=== PATIENT | female | born 1970 | race African-American/Black ===

== ENCOUNTER 2019-06-03 20:22 | Emergency (ER) | payer OTHER, SELFPAY ==
[2019-06-03 20:25] VITALS: BP 162/106; PULSE 71; RESP 16; TEMP 36.1; O2SAT 100
--- NOTE | 2019-06-03 20:50 | ED.GENADULT ---
HPI - General Adult General Chief complaint: Wound/Laceration <Allen Raya PA-C - Last Filed: 06/03/19 21:45> Stated complaint: finger lac <Allen Raya PA-C - Last Filed: 06/03/19 21:45> Time Seen by Provider: 06/03/19 20:33 <Allen Raya PA-C - Last Filed: 06/03/19 21:45> Source: patient <Allen Raya PA-C - Last Filed: 06/03/19 21:45> Mode of arrival: ambulatory <Allen Raya PA-C - Last Filed: 06/03/19 21:45> Limitations: no limitations <Allen Raya PA-C - Last Filed: 06/03/19 21:45> History of Present Illness HPI narrative: Patient is a 48-year-old female who presents with laceration of the right thumb that occurred just prior to arrival using a straight edge to cut something patient notes aching pain worse with touch and activity patient denies any loss of feeling numbness or tingling. Patient notes her tetanus is not up-to-date <Allen Raya PA-C - Last Filed: 06/03/19 21:45> Related Data Home medications: Home Medications Medication Instructions Recorded Confirmed lisinopril 06/03/19 naproxen 06/03/19 <Allen Raya PA-C - Last Filed: 06/03/19 21:45> Allergies/adverse reactions: Allergies Allergy/AdvReac Type Severity Reaction Status Date / Time No Known Allergies Allergy Unverified 10/17/16 13:54 <Allen Raya PA-C - Last Filed: 06/03/19 21:45> Review of Systems Review of Systems: Narrative: SKIN: Positive for laceration MUSCULOSKELETAL: Positive for thumb pain NEUROLOGIC: Denies numbness, or weakness. <Allen Raya PA-C - Last Filed: 06/03/19 21:45> PMFSH Social History Social History: Social History Gender identity (if verbalized by the patient): Female <Allen Raya PA-C - Last Filed: 06/03/19 21:45> Exam Narrative: Exam Narrative: GENERAL: Well-appearing, well-nourished, and in no acute distress. HEAD: Normocephalic, atraumatic. EYES: PERRLA and EOMI. ENT: Nares clear, no rhinorrhea or epistaxis. Mucous membranes moist. EXTREMITIES: Normal range of motion. No edema. SKIN: Warm, dry, no rash. 1 cm linear superficial laceration the distal phalanx of the right thumb NEURO: No focal deficits. Alert and oriented x3. Neurovascularly intact PSYCH: Normal mood and affect. <ESTEFANIA Borja Last Filed: 06/03/19 21:45> Course Course Emergency Course: Patient in the room in no distress aware of case findings treatment plan and diagnosis felt appropriate for outpatient reevaluation <ESTEFANIA Borja Last Filed: 06/03/19 21:45> Vital Signs Vital signs: Vital Signs Temperature 36.1 C L 06/03/19 20:25 Pulse Rate 71 06/03/19 20:25 Respiratory Rate 16 06/03/19 20:25 Blood Pressure 162/106 H 06/03/19 20:25 Pulse Oximetry 100 06/03/19 20:25 Temperature 36.1 C L 06/03/19 20:25 Pulse Rate 71 06/03/19 20:25 Respiratory Rate 16 06/03/19 20:25 Blood Pressure 162/106 H 06/03/19 20:25 Pulse Oximetry 100 06/03/19 20:25 <ESTEFANIA Borja Last Filed: 06/03/19 21:45> Vital Signs Temperature 36.1 C L 06/03/19 20:25 Pulse Rate 71 06/03/19 20:25 Respiratory Rate 16 06/03/19 20:25 Blood Pressure 162/106 H 06/03/19 20:25 Pulse Oximetry 100 06/03/19 20:25 Temperature 36.1 C L 06/03/19 20:25 Pulse Rate 71 06/03/19 20:25 Respiratory Rate 16 06/03/19 20:25 Blood Pressure 162/106 H 06/03/19 20:25 Pulse Oximetry 100 06/03/19 20:25 <Chantell Abbott MD - Last Filed: 06/03/19 23:16> Procedures Laceration Laceration 1: Date: 06/03/19 <ESTEFANIA Borja Last Filed: 06/03/19 21:45> Time: 20:54 <ESTEFANIA Borja Last Filed: 06/03/19 21:45> Site: upper extremity <ESTEFANIA Borja Filed: 06/03/19 21:45> Side (If applicable): right <Allen Bhat
[2019-06-03] MEDS: TETANUS,DIPHTHERIA,AC PERTUSSIS ADULT 0.5 ML (ADACEL) IM (22:33)
== END 2019-06-03 22:35 | disposition home or self-care (01) ==
PROVIDERS: Emergency Provider Emergency Medicine; PCP Physician Assistant
DX: S61.011A Laceration without foreign body of right thumb without damage to nail, initial encounter (principal); W26.8XXA Contact with other sharp object(s), not elsewhere classified, initial encounter; Z23 Encounter for immunization
CPT/HCPCS: 12001; 90471; 90715; 99282

== ENCOUNTER 2019-11-05 10:00 | Outpatient (RCR) | payer OTHER, SELFPAY ==
--- NOTE | 2019-08-09 15:10 | PTOPEVAL ---
PHYSICAL THERAPY EVALUATION AND PLAN OF CARE Thank you for referring Verito Sanchez to [facility]. I recommend Verito participate in physical therapy 2x/week for 4 weeks with supplemental HEP. Please review, sign, date and return this plan of care MERT. I agree with and certify that the following plan of care is medically necessary. Referring Physician Date Evaluation Evaluation Information Problem Diagnosis left ACL tear Onset September 2018 Cause fall Subjective Information Verito is here today almost a Query Text:As Reported By Patient/ year s/p left ACL tear. States Family she did therapy for some time after the surgery, but it ended in 12/2018. She often feels as though the knee wants to give out, some stabbing pain in the side of the kne, and there is some swelling in the knee. Left Knee(s) Reported Pain Level 7 Pain Frequency Chronic,Continuous Lowest Pain Intensity 5 Pain Aggravating Factors Stair Climbing,Weight Bearing/ Standing Pain Behaviors Anxious,Guarding Pain Relief Interventions Used By Ice Patient Pain Score Pain Score 7: Self Report Additional Pain Score Comments takes tylenol PM Lower Extremity Range of Motion Knee Range of Motion Left Knee Flexion Range of Motion - Active 119 Knee Extension Range of Motion - Active 0 Query Text: Lower Extremity Muscle Strength Testing Hip Strength Left Hip Flexion Strength 4 Good Hip Extension Strength 3- Fair - Hip Abduction Strength 3 Fair Knee Strength Left Knee Flexion Strength 4 Good Knee Extension Strength 4 Good Posture Posture Standing Position Head/C-Spine Posture Neutral Position Thoracic Spine Posture Neutral Lumbar Spine Posture Increased Lordosis Pelvis Posture Anteriorly Tilted Weight Distribution Weight Shifted Right Hip Posture (L) Neutral,(R) Neutral Knee Posture (R) Neutral,(L) Genu Recurvatum Special Tests-Lower Extremity Knee Special Tests Anny's Positive Left Anterior Drawer Negative Left Pivot-Shift Positive Left Too's Positive Left Edema Assessment Location Left Knee(s) Type Non-Pitting Edema Degree 1+ (2 mm or less) Gait Pattern Antalgic Gait,Trendele
--- NOTE | 2019-09-06 10:51 | PTOPEVAL ---
PHYSICAL THERAPY PLAN OF CARE UPDATE AND PROGRESS REPORT Thank you for referring Verito Sanchez to [facility]. I recommend Verito continue physical therapy 2x/week for 4 weeks. Please review, sign, date and return this plan of care MERT. I agree with and certify that the following plan of care is medically necessary. Referring Physician Date Progress Diagnosis left ACL tear Onset September 2018 Cause fall Subjective Information Verito reports minimal pain Query Text:As Reported By Patient/ with occasional increased pain Family in the left knee. States she sees the physician next Friday (09/13/19) to determine next steps and if surgery is an option to be scheduled. Overall feels as though it is stronger. She wears a knee brace when in the community. Self Report Pain Assessment Left Knee(s) Reported Pain Level 1 Knee Range of Motion Left Knee Flexion Range of Motion - Active 120 Knee Extension Range of Motion - Active 0 Query Text: Hip Strength Left Hip Flexion Strength 4+ Good + Hip Extension Strength 3+ Fair + Hip Abduction Strength 3+ Fair + Knee Strength Left Knee Flexion Strength 4+ Good + Knee Extension Strength 4+ Good + Knee Strength Comments SLS x10 seconds each side, increased sway on left side Palpation continues to have mild edema pocket at medial joint line Edema Assessment Left Knee Type Non-Pitting Edema Degree 1+ (2 mm or less) Balance Assessment 5 Time Sit to Stand Time in Seconds 9 Gait Pattern Antalgic Gait Gait Pattern Observed Hyperextended Knee - Left Other Gait Observations states she can feel the knee hyperextending and is conscious of correcting it Stair Climbing Assessment Stair Climbing Assistive Devices None Number of Steps Climbed (Steps) 4 Number of Repetitions (Repetitions) 3 Technique Alternating Steps Stair Climbing Direction Both Up and Down Stair Climbing Ability Independent Stair Climbing Comments jumps off right foot to rise on left; poor eccentric control of left LE to lower down PT Clinical Summary Verito has participated in physical therapy for 4 weeks
--- NOTE | 2019-09-28 10:09 | PCPTNOTE ---
Patient called & cancelled scheduled appointment this date due to not being able to make it.
--- NOTE | 2019-10-05 09:21 | PCPTNOTE ---
Patient called & cancelled scheduled appointment this date due to [ car trouble per [employer]]
--- NOTE | 2019-10-07 11:53 | PTOPEVAL ---
PHYSICAL THERAPY PLAN OF CARE UPDATE AND PROGRESS REPORT Thank you for referring Verito Sanchez to [facility]. Verito is scheduled to be seen 1x/week for 4 weeks which will be followed up with re-assessment to determine further skilled PT needs. Please review, sign, date and return this plan of care MERT. I agree with and certify that the following plan of care is medically necessary. Referring Physician Date Progress Evaluation Information Problem Diagnosis left ACL tear Onset September 2018 Cause fall Subjective Information Veirto reports she has been Query Text:As Reported By Patient/ doing well. Needs to follow up Family to with her physician to have an MRI and then discuss possible surgery. Minimal pain in left knee at this time. States that right knee and back have been hurting lately. She states she is more concerned about her meniscus than her ACL but is willing to do surgery either way. Pain Assessment Timing of Pain Assessment Timing of Pain Assessment Assessment Self Report Self Report Pain Level 0 Lower Extremity Range of Motion Knee Range of Motion Left Knee Flexion Range of Motion - Active 132 Knee Extension Range of Motion - Active 0 Query Text: Hip Strength Left Hip Flexion Strength 5 Normal Hip Extension Strength 3+ Fair + Hip Abduction Strength 3+ Fair + Knee Strength Left Knee Flexion Strength 5 Normal Knee Extension Strength 4+ Good + Knee Strength Comments SLS x10 seconds each side, increased sway on left side Stair Climbing Assessment Stair Climbing Assistive Devices None Weight Bearing Status - Left As Tolerated Weight Bearing Status - Right Full Maintains Weight Bearing Status Yes Number of Steps Climbed (Steps) 4 Number of Repetitions (Repetitions) 3 Technique Alternating Steps Stair Climbing Direction Both Up and Down Stair Climbing Ability Independent Stair Climbing Comments continues to have fair eccentric control on left PT Clinical Summary Verito continues to demonstrate mild left LE strength deficits. She would benefit from further skilled PT to progres HEP and prepare for surgery. PT Services Indicated Yes Rehabilitation Potential Good Patient/Caregiver's Per
--- NOTE | 2019-11-05 10:49 | PTOPEVAL ---
PHYSICAL THERAPY DISCHARGE NOTE Thank you for referring Verito Sanchez to [facility].? Please review, sign, date and return this plan of care MERT. I agree with and certify that the following plan of care is medically necessary. Referring Physician Date Discharge Problem Diagnosis left ACL tear Onset September 2018 Cause fall Subjective Information Verito nothing new to report. Query Text:As Reported By Patient/ Had an MRI 2 weeks ago but Family does not know results yet. Pain Assessment Timing of Pain Assessment Timing of Pain Assessment Pre-Treatment Self Report Self Report Pain Level 0 Pain Score Pain Score 0: Self Report Lower Extremity Muscle Strength Testing Hip Strength Left Hip Flexion Strength 5 Normal Hip Extension Strength 4 Good Hip Abduction Strength 4 Good Knee Strength Left Knee Flexion Strength 5 Normal Knee Extension Strength 4+ Good + Knee Strength Comments SLS x15 seconds each side; unilateral leg press 80#x15 reps; only reason not testing 5/5 is due to poor eccentric control during SLS squat PT Clinical Summary Verito demonstrates a plateau in functional change at this time. Her strength is WFL except for eccentric control of right quadriceps. She does have significant crepitus that she feels interrupts her control of left knee. I recommend d/c from PT at this time. Follow up with physician regarding MRI. PT Services Indicated Yes Patient/Caregiver's Personal Goals for decrease pain, increase Rehabilitation strength Potential Barriers to Goal Achievements None Other Potential Barriers to Goal fear of using LLE Achievement Support Requirements For Optimal None [place] Patient/Caregiver Informed of Benefits/ Yes Risks of Rehabilitation Patient/Caregiver Participated in Plan Yes of Care Patient/Caregiver Agreed with Problem Yes List/POC/Goals
== END 2019-11-07 23:59 | disposition home or self-care (01) ==
LOC: ANHPT 10:00
PROVIDERS: PCP Physician Assistant
DX: M25.562 Pain in left knee (principal); S83.512D Sprain of anterior cruciate ligament of left knee, subsequent encounter; S83.242D Other tear of medial meniscus, current injury, left knee, subsequent encounter
CPT/HCPCS: 97110; 97161

== ENCOUNTER 2021-04-04 00:54 | Emergency (ER) | payer OTHER, SELFPAY ==
[2021-04-04 01:04] VITALS: BP 152/96; PULSE 104; RESP 18; TEMP 36.7; O2SAT 100
--- NOTE | 2021-04-04 01:40 | ED.GENADULT ---
HPI - General Adult General Chief complaint: Ear Stated complaint: right ear pain Time Seen by Provider: 04/04/21 01:28 History of Present Illness HPI narrative: Patient is a 50-year-old female who presents the emergency department with chief complaint of right ear pain. The patient reports she was seen earlier today diagnosed with a sinus infection and started on Augmentin the patient reports that this evening she started having pain in her neck and in her right ear. The patient states that the pain is throbbing unable to get comfortable in any position. The patient states she feels like her eardrum is about to explode Related Data Home Medications Medication Instructions Recorded Confirmed lisinopril 06/03/19 naproxen 06/03/19 Allergies Allergy/AdvReac Type Severity Reaction Status Date / Time No Known Allergies Allergy Verified 04/04/21 01:23 Review of Systems Review of Systems: A 10 system review of systems was completed on the patient and is negative except for what is stated in the HPI. Nursing and ancillary documentation was reviewed. PMFSH Social History Social History Gender identity (if verbalized by the patient): Female Exam Narrative: GENERAL: Well-appearing, well-nourished, and in no acute distress. HEAD: Normocephalic, atraumatic. EYES: PERRLA and EOMI. ENT: Nares clear, no rhinorrhea or epistaxis. Mucous membranes moist. Right tympanic membrane is bulging with purulent material behind the eardrum NECK: Supple. There is anterior cervical lymphadenopathy CHEST: Clear to auscultation. No respiratory distress. HEART: Regular rate and rhythm. No murmur heard. Normal peripheral pulses. ABDOMEN: Soft, nontender, nondistended, normal active bowel sounds. EXTREMITIES: Normal range of motion. No edema. SKIN: Warm, dry, no rash. NEURO: No focal deficits. Alert and oriented x3. PSYCH: Normal mood and affect. Course Course Emergency Course: The patient is currently on Augmentin that started today. At this time we do not need to change the antibiotics. The patient will be given pain control and instructed to continue her antibiotic Vital Signs Vital signs: Vital Signs Temperature 36.7 C 04/04/21 01:04 Pulse Rate 104 H 04/04/21 01:04 Respiratory Rate 18 04/04/21 01:04 Blood Pressure 152/96 H 04/04/21 01:04 Pulse Oximetry 100 04/04/21 01:04 Temperature 36.7 C 04/04/21 01:04 Pulse Rate 104 H 04/04/21 01:04 Respiratory Rate 18 04/04/21 01:04 Blood Pressure 152/96 H 04/04/21 01:04 Pulse Oximetry 100 04/04/21 01:04 Medical Decision Making Vital Signs Vital Signs: Vital Signs Temperature 36.7 C 04/04/21 01:04 Pulse Rate 104 H 04/04/21 01:04 Respiratory Rate 18 04/04/21 01:04 Blood Pressure 152/96 H 04/04/21 01:04 Pulse Oximetry 100 04/04/21 01:04 Temperature 36.7 C 04/04/21 01:04 Pulse Rate 104 H 04/04/21 01:04 Respiratory Rate 18 04/04/21 01:04 Blood Pressure 152/96 H 04/04/21 01:04 Pulse Oximetry 100 04/04/21 01:04 Discharge Plan Discharge Clinical Impression: Otitis media Qualifiers: Otitis media type: unspecified Laterality: right Qualified Code(s): H66.91 - Otitis media, unspecified, right ear Patient Disposition: Home, Self-Care Condition: Stable Instructions: Antibiotic Form, Ear Infection (ED) Additional Instructions: Please continue the antibiotics that you were prescribed today. The amoxicillin clavulanic acid will treat the ear infection. Prescriptions: New hydrocodone-acetaminophen 5-325 mg tablet 1 tablet PO Q6H PRN (Reason: pain) 3 Days Qty: 12 RF: 0 No Action lisinopril 30 mg tablet RF: 0 naproxen 500 mg tablet RF: 0 Follow-up/Referrals: Zenon,ROMARIO Mi [Primary Care Provider] - Time of Disposition: 01:44
[2021-04-04] MEDS: KETOROLAC 30 MG/ML VIAL (*BKC) IM (01:51)
[2021-04-04] MEDS: HYDROcodone/acetaminophen (*CRX) 5-325 MG TABLET 1 TAB PO (01:51)
[2021-04-04 02:00] VITALS: BP 150/93; PULSE 87; RESP 18; O2SAT 100
== END 2021-04-04 02:05 | disposition home or self-care (01) ==
PROVIDERS: Emergency Provider Emergency Medicine; PCP Physician Assistant
DX: H66.91 Otitis media, unspecified, right ear (principal)
CPT/HCPCS: 96372; 99283; A9270; J1885

== ENCOUNTER 2022-04-20 01:46 | Inpatient (IN) | payer OTHER, SELFPAY ==
[2022-04-20] VITALS (8 sets, daily range): BP systolic 108–138; BP diastolic 71–92; PULSE 63–105; RESP 14–19; TEMP 36.2–36.7; O2SAT 96–100; BMI 29.3
--- NOTE | ~2022-04-20 | NM_ITS ---
EXAMINATION: NM hepatobiliary wo pharm DATE: 04/23/2022 10:03 INDICATION: Cholelithiasis. COMPARISON: None. TECHNIQUE: 5.0 mCi Tc-99m mebrofenin (Choletec) was administered intravenously. Scintigraphic images of the abdomen were obtained for one hour. At the 1 hour time point, the patient drank 8 oz Ensure, and imaging was continued for 60 minutes. Gallbladder ejection fraction was calculated by the technol ogist. FINDINGS: There is normal clearance of radiotracer from the blood pool. There is homogeneous tracer u ptake by the liver. Activity progresses to the bowel and gallbladder. The gallbladder ejection fract ion (GBEF) is 66%. Note that with this technique, normal GBEF >= 33%. IMPRESSION: 1. Normal hepatobiliary scan. Reviewed, dictated and finalized at location D. SERVICE CASHIER
--- NOTE | ~2022-04-20 | CT_ITS ---
EXAMINATION: CT abdomen pelvis wo con DATE: 04/20/2022 10:37 INDICATION: Abdominal pain. Rectal bleeding. History of hemorrhoids. TECHNIQUE: Computed tomography (CT) of the abdomen and pelvis was performed without intravenous contr ast. The dose-length product was 545.71 mGy-cm. Automated exposure control and iterative reconstructi on technique were employed. COMPARISON: None. FINDINGS: Lung bases are unremarkable. Heart size normal. No significant vascular abnormality. Nonobs tructive bowel gas pattern. Colonic diverticulosis without evidence for diverticulitis. The appendix is not positively visualized. There is no pericecal inflammatory change to suggest appendicitis. Enlarged fibroid uterus. The liver, spleen, pancreas, adrenal glands and kidneys are unremarkable. Th ere are possible gallstones. No significant vascular abnormality. No lymphadenopathy. Normal appendix . No free air or free fluid. Moderate lumbar spondylosis. IMPRESSION: 1. No acute abdominal abnormality. 2: Enlarged fibroid uterus. 3: Possible cholelithiasis. Consider correlation with ultrasound. Reviewed, dictated and finalized at location A. LATHE OPERATOR
--- NOTE | ~2022-04-20 | US_ITS ---
US abdomen limited INDICATION: Abdominal pain. PROCEDURE: Realtime right upper abdominal ultrasound. COMPARISON: No prior studies for comparison. FINDINGS: The pancreas is normal without focal mass or pancreatic ductal dilation. Liver echotexture is normal without focal mass or intrahepatic biliary dilatation. There is normal directional flow i n the portal vein. The gallbladder is normal without stones, gallbladder wall thickening or pericholecystic fluid. Comm on bile duct measures 4.6 mm. No sonographic Dougherty's sign. IMPRESSION: 1: Normal limited abdominal ultrasound. Reviewed, dictated and finalized at location A. ERIZING RANGE CONTROLLER
[2022-04-20] MEDS: HYDROcodone/acetaminophen (*CRX) 5-325 MG TABLET 1 TAB PO (02:58)
[2022-04-20] MEDS: LIDOCAINE HCL 4% SOLN 50 ML BTL 1 APPLIC TOPICAL (02:59)
[2022-04-20 03:30] LABS: Basophils Percent Auto 0.4 % (0.2-1.2); Eosinophils Absolute Auto 0.1 K/mm3 (0-0.3); Eosinophils Percent Auto 1.7 % (0-4.4); Hematocrit 35.1 % (37.0-47.0); Hemoglobin 11.9 g/dL (12.0-15.0); Immature Granulocyte Absolute 0.03 K/mm3 (0.00-0.031); Immature Granulocyte Percent A 0.4 % (0-0.5); Lymphocytes Absolute Auto 3.07 K/mm3 (0.9-3.2); Lymphocytes Percent Auto 36.3 % (18.3-44.2); Mean Corpuscular HGB Conc 33.9 g/dl (32-36); Mean Corpuscular Hemoglobin 31.2 pg (26-34); Mean Corpuscular Volume 91.9 fl (80-100); Mean Platelet Volume 9.2 fl (7.4-10.4); Monocytes Percent Auto 11.6 % (2.6-8.5); Neutrophils Absolute Auto 4.2 K/mm3 (1.3-6.7); Neutrophils Percent Auto 49.6 % (45.5-73.1); Platelet Count Result 287 k/mm3 (150-375); Red Blood Count 3.82 M/mm3 (4.2-5.4); Red Cell Distribution Width 14.1 % (11.5-14.5); White Blood Count 8.5 K/mm3 (4.5-10.0)
[2022-04-20] MEDS: DICYCLOMINE HCL INJ 20 MG/2 ML VIAL IM (03:36)
[2022-04-20 03:49] LABS: Alanine Aminotransferase 27 U/L (6-35); Albumin Level 3.9 g/dL (3.5-5.1); Alkaline Phosphatase 84 U/L (38-126); Anion Gap 5 mmol/L (8-16); Aspartate Amino Transferase 41 U/L (14-36); Bilirubin,Total 0.3 mg/dL (0.2-1.3); Blood Urea Nitrogen 13 mg/dL (7-17); Calcium 9.1 mg/dL (8.4-10.2); Carbon Dioxide 26 mmol/L (22-30); Chloride 107 mmol/L (98-107); Estimated Glomerular Filt Rate > 60; Glucose 93 mg/dL (65-110); Lipase 1579 U/L (23-300); Potassium 3.7 mmol/L (3.4-5.0); Sodium 138 mmol/L (137-145)
--- NOTE | 2022-04-20 04:26 | ED.GENADULT ---
HPI - General Adult General Chief complaint: Abdominal Pain Stated complaint: severe hemorroids Time Seen by Provider: 04/20/22 02:03 History of Present Illness HPI narrative: Patient is a 51-year-old female who presents ER with abdominal pain and rectal pain. Patient began having abdominal pain about 1 week ago. She had started metronidazole for bacterial vaginosis. She has taken it twice a day. She began having diarrhea earlier in the week that was yellow in nature. She then began having increased irritation and pain in her rectum related to hemorrhoids that are chronic for her. She has occasional bleeding. No improvement with topical steroids/witch jelena. She has tried some warm water soaks. Denies fevers or chills or sweats. Stomach is aching and feels distended/bloated. No vomiting. Related Data Home Medications Medication Instructions Recorded Confirmed lisinopril 30 mg tablet 06/03/19 naproxen 500 mg tablet 06/03/19 Allergies Allergy/AdvReac Type Severity Reaction Status Date / Time No Known Allergies Allergy Verified 04/04/21 01:23 Review of Systems Review of Systems: All systems reviewed & are unremarkable except as noted in HPI and below Constitutional: Constitutional: Denies chills, Denies fatigue and Denies fever(s) ENT: Denies nasal congestion and Denies sore throat Cardiovascular: Cardiovascular: Denies chest pain, Denies rapid heart rate and Denies radiating jaw, neck or arm pain Gastrointestinal: Gastrointestinal: Reports abdominal pain, Reports diarrhea, Denies nausea and Denies vomiting Comments: Hemorrhoids Genitourinary: Genitourinary: Denies dysuria and Denies flank pain PMFSH Past Medical History Medical History (Updated 04/20/22 @ 06:13 by Juan Bhatti MD) Hemorrhoids Hypertension Surgical History Surgical History (Updated 04/20/22 @ 06:12 by Juan Bhatti MD) No pertinent past surgical history Social History Social History Gender identity (if verbalized by the patient): Female Exam Narrative: GENERAL: Well-appearing, well-nourished, and in no acute distress. HEAD: Normocephalic, atraumatic. EYES: PERRL and EOMI. CHEST: Clear to auscultation. No respiratory distress. HEART: Regular rate and rhythm. Normal peripheral pulses. ABDOMEN: Soft, mild epigastric discomfort, nondistended. Inflamed external hemorrhoids are circumferential. No thrombosis or bleeding. EXTREMITIES: Normal range of motion. No edema. SKIN: Warm, dry, no rash. NEURO: Alert and oriented x3. PSYCH: Normal mood and affect. Course Course Emergency Course: Admit to hospital service for observation. Pancreatitis likely related to medication she has been taking. Will hydrate and keep NPO. Vital Signs Vital signs: Vital Signs Temperature 98.0 F 04/20/22 01:50 Pulse Rate 105 H 04/20/22 01:50 Respiratory Rate 18 04/20/22 01:50 Blood Pressure 111/92 H 04/20/22 01:50 Pulse Oximetry 99 04/20/22 01:50 Oxygen Delivery Room Air 04/20/22 01:50 Temperature 98.0 F 04/20/22 01:50 Pulse Rate 88 04/20/22 05:43 Respiratory Rate 19 04/20/22 05:43 Blood Pressure 123/89 04/20/22 05:43 Pulse Oximetry 97 04/20/22 05:43 Oxygen Delivery Room Air 04/20/22 01:50 Medical Decision Making Vital Signs Vital Signs: Vital Signs Temperature 98.0 F 04/20/22 01:50 Pulse Rate 105 H 04/20/22 01:50 Respiratory Rate 18 04/20/22 01:50 Blood Pressure 111/92 H 04/20/22 01:50 Pulse Oximetry 99 04/20/22 01:50 Oxygen Delivery Room Air 04/20/22 01:50 Temperature 98.0 F 04/20/22 01:50 Pulse Rate 88 04/20/22 05:43 Respiratory Rate 19 04/20/22 05:43 Blood Pressure 123/89 04/20/22 05:43 Pulse Oximetry 97 04/20/22 05:43 Oxygen Delivery Room Air 04/20/22 01:50 Lab Data 04/20/22 03:20 04/20/22 03:20 Labs: Lab Results
[2022-04-20] MEDS: SODIUM CHLORIDE 0.9% IV 1,000 ML 175 ML IV CONT ×3 (06:36→21:00)
--- NOTE | 2022-04-20 06:54 | ADMGEN ---
This patient, Verito Sanchez, was admitted to [facility] Surg Room 326-01. Patient/family oriented to hospital policies and general routines including ID bracelet, bed and alarms, visiting hours, pain management, procedures, bathroom and other care routines, personal items, smoking policy, room service/diet, and visiting hours. Information on how to activate the Rapid Response Team has been discussed. Patient/Family are encouraged to report perceived risks to care and to ask questions if they do not understand what they are told or what they should do.
--- NOTE | 2022-04-20 10:05 | PM.IMHP ---
H&P: [facility] History of Present Illness Date/Time: 04/20/22 10:05 Chief Complaint: rectal bleeding Narrative: 51-year-old female with past medical history of hypertension and hemorrhoids is presenting with rectal bleeding thought to be secondary to hemorrhoids. She states she has had diarrhea over the last week and worsening hemorrhoid and rectal pain. She has also noted bleeding with every bowel movement that is bright red blood. She denies nausea, vomiting or fevers or chills. No chest pain or shortness of breath. No sick contacts or recent travel. She was recently placed on metronidazole for bacterial vaginosis. She thinks this is when her diarrhea started. She also admits to abdominal bloating and distension. In the ER, consult was placed to GI and General surgery for concern for thrombosed hemorrhoids. CT abdomen and pelvis as well as right upper quadrant ultrasound were done and were essentially nonacute only showing possible cholelithiasis. Labs were essentially within normal limits. Review of Systems Review of Systems: 12 point review of systems was assessed and was negative except as noted in the HPI [facility] Past Medical History Medical History Abdominal pain Hemorrhoids Hypertension Surgical History Surgical History No pertinent past surgical history Social History Social History Smoking status: Never smoker Alcohol intake: never Substance use: never Lack of Transportation: No Lack of Food: Never True Current Housing: I Have Housing Concerned About Future Housing: No Difficulty Paying Gas/Electric Bills: No Difficulty Paying for Meds: No Currently Unemployed: No Education: High School Diploma/GED Difficulty w/ Childcare or Family Care: No Gender identity (if verbalized by the patient): Female Spiritual care concerns: No Meds Home Medications and Allergies Home Medications Medication Instructions Recorded Confirmed Type lisinopril 30 mg tablet 10 mg PO DAILY 06/03/19 04/20/22 History acyclovir 400 mg tablet 400 mg PO BID 04/20/22 04/20/22 History famotidine 20 mg tablet 20 mg PO DAILY 04/20/22 04/20/22 History hydrochlorothiazide 12.5 mg tablet 12.5 mg PO DAILY 04/20/22 04/20/22 History Allergies Allergy/AdvReac Type Severity Reaction Status Date / Time No Known Allergies Allergy Verified 04/04/21 01:23 Vital Signs Vital Signs - 24 hr 04/20/22 01:50 04/20/22 05:43 04/20/22 04:45 Temperature 98.0 F Pulse Rate 105 H 88 90 Respiratory Rate 18 19 17 Blood Pressure 111/92 H 123/89 138/74 Pulse Oximetry 99 97 97 Oxygen Delivery Room Air 04/20/22 03:30 04/20/22 06:52 Temperature 97.4 F L Pulse Rate 88 65 Respiratory Rate 17 14 Blood Pressure 120/74 117/74 Pulse Oximetry 96 100 Oxygen Delivery Exam Narrative: General: No acute distress, alert and oriented per baseline HEENT: Atraumatic, normocephalic, mucous membranes moist CV: Regular rate and rhythm, S1, S2 Lungs: Clear to auscultation bilaterally, no rales or crackles noted, no wheezes, good air entry Abdomen: Soft, nontender, nondistended Extremities: Normal to inspection Skin: No rashes noted, no lesions or wounds seen Psych: Euthymic, normal affect H&P: Results Labs Labs: Short CBC 04/20/22 Range/Units 03:20 WBC 8.5 (4.5-10.0) K/mm3 Hgb 11.9 L (12.0-15.0) g/dL Hct 35.1 L (37.0-47.0) % Plt Count 287 (150-375) k/mm3 BMP 04/20/22 03:20 Sodium 138 Potassium 3.7 Chloride 107 Carbon Dioxide 26 BUN 13 Creatinine 1.10 H Glucose 93 Calcium 9.1 Liver Function 04/20/22 Range/Units 03:20 Total Bilirubin 0.3 (0.2-1.3) mg/dL AST 41 H (14-36) U/L ALT 27 (6-35) U/L Alkaline Phosphatase 84 (38-126) U/L Albumin 3.9 (3.5-5.1) g/dL Assessment and Pl
[2022-04-20] MEDS: lisinopriL 10 MG TABLET 30 MG PO (11:53)
[2022-04-20] MEDS: PANTOPRAZOLE SODIUM IV 40 MG VIAL IV PUSH (11:54)
[2022-04-20] MEDS: FAMOTIDINE 20 MG TABLET PO (11:54)
[2022-04-20] MEDS: ACYCLOVIR 400 MG TABLET PO ×2 (11:54→16:57)
--- NOTE | 2022-04-20 17:11 | WPDGICN ---
Assessment and Plan Assessment and plan (1) Abdominal pain: Code(s): R10.9 - Unspecified abdominal pain Status: Acute Assessment and Plan: normal bili, only mild elevated ast denies previous history, no alcohol will get TG level ultrasound normal bile duct size and GB CL diet for now (2) Pancreatitis: Code(s): K85.90 - Acute pancreatitis without necrosis or infection, unspecified Status: Acute Assessment and Plan: new diagnosis monitor (3) Hemorrhoids: Code(s): K64.9 - Unspecified hemorrhoids Status: Acute Assessment and Plan: main reason to come to ER, large size hemorrhoids surgery to see patient suppository (4) Hypertension: Code(s): I10 - Essential (primary) hypertension Status: Acute GI Consult Note Consult date/time: 04/20/22 17:11 Reason for consult: hemorrhoids, pancreatitis HPI: Verito Sanchez is a 51 year old female with history of HTN who came to the ER mainly because anal discomfort from hemorrhoids for last few days, also noted tightness in upper abdomen but says that reason to ER visit was anal discomfort. She has diagnosed with bacterial vaginosis and given flagyl, then noted yellowish loose stool with significant irritation and pain in her rectum related to hemorrhoids, she had previous flare where used supp but not this time, not uncomfortable after using restroom. She recently started using miralax to prevent constipation, also has occasional bleeding after having BM. She had colonoscopy about 3 years ago. Blood work noted lipase 1500, ultrasound normal GB (CT scan noted possible cholelithiasis).?? Review of Systems Review of Systems: All systems reviewed & are unremarkable except as noted in HPI and below Constitutional: Constitutional: Denies chills, Denies fatigue and Denies fever(s) Eyes: Eyes: Denies blurry vision ENT: Denies nasal congestion and Denies sore throat Cardiovascular: Cardiovascular: Denies chest pain, Denies rapid heart rate and Denies radiating jaw, neck or arm pain Respiratory: Respiratory: Denies chest congestion Gastrointestinal: Gastrointestinal: Reports abdominal pain, Reports diarrhea, Denies nausea and Denies vomiting Comments: Hemorrhoids Genitourinary: Genitourinary: Denies dysuria and Denies flank pain Musculoskeletal: Musculoskeletal: Denies myalgias Integumentary/Breasts: Skin/Breast: Denies dry skin Neurologic: Denies Abnormal speech present Psychiatric: Psychiatric: Denies anxiety PMF Past Medical History Medical History (Updated 04/20/22 @ 17:16 by Dexter Kamara MD) Abdominal pain Hemorrhoids Hypertension Surgical History Surgical History No pertinent past surgical history Social History Social History Smoking status: Never smoker Alcohol intake: never Substance use: never Lack of Transportation: No Lack of Food: Never True Current Housing: I Have Housing Concerned About Future Housing: No Difficulty Paying Gas/Electric Bills: No Difficulty Paying for Meds: No Currently Unemployed: No Education: High School Diploma/GED Difficulty w/ Childcare or Family Care: No Gender identity (if verbalized by the patient): Female Spiritual care concerns: No Meds Home Medications and Allergies Home Medications Medication Instructions Recorded Confirmed Type lisinopril 30 mg tablet 10 mg PO DAILY 06/03/19 04/20/22 History acyclovir 400 mg tablet 400 mg PO BID 04/20/22 04/20/22 History famotidine 20 mg tablet 20 mg PO DAILY 04/20/22 04/20/22 History hydrochlorothiazide 12.5 mg tablet 12.5 mg PO DAILY 04/20/22 04/20/22 History Allergies Allergy/AdvReac Type Severity Reaction Status Date / Time No Known Allergies Allergy Verified 04/04/21 01:23 Vital Signs Vital Signs - 24 hr 04/20/22 01:50 04/20/22 05:
[2022-04-20] MEDS: HYDROCORTISONE ACETATE 25 MG SUPPOSITORY RECTAL (21:01)
[2022-04-20] MEDS: MORPHINE SULFATE (*CRX) 4 MG/ML INJ IV PUSH (21:08)
[2022-04-21] MEDS: SODIUM CHLORIDE 0.9% IV 1,000 ML 175 ML IV CONT ×4 (00:26→20:25)
[2022-04-21 05:44] VITALS: BP 114/68; PULSE 68; RESP 14; TEMP 36.4; O2SAT 100
[2022-04-21 06:31] LABS: Alanine Aminotransferase 23 U/L (6-35); Albumin Level 3.3 g/dL (3.5-5.1); Alkaline Phosphatase 65 U/L (38-126); Anion Gap 5 mmol/L (8-16); Aspartate Amino Transferase 29 U/L (14-36); Bilirubin,Total 0.5 mg/dL (0.2-1.3); Blood Urea Nitrogen 11 mg/dL (7-17); Calcium 8.3 mg/dL (8.4-10.2); Carbon Dioxide 22 mmol/L (22-30); Chloride 110 mmol/L (98-107); Estimated CRCL calculation 55 ml/min; Estimated Glomerular Filt Rate > 60; Glucose 70 mg/dL (65-110); Potassium 3.5 mmol/L (3.4-5.0); Sodium 137 mmol/L (137-145); Triglycerides 74 mg/dL (<150)
[2022-04-21] MEDS: HYDROCORTISONE ACETATE 25 MG SUPPOSITORY RECTAL ×2 (09:00→20:25)
[2022-04-21] MEDS: lisinopriL 10 MG TABLET PO (09:00)
[2022-04-21] MEDS: FAMOTIDINE 20 MG TABLET PO (09:00)
[2022-04-21] MEDS: PANTOPRAZOLE SODIUM IV 40 MG VIAL IV PUSH (09:00)
[2022-04-21] MEDS: hydroCHLOROthiazide 12.5 MG CAPSULE PO (09:00)
[2022-04-21] MEDS: ACYCLOVIR 400 MG TABLET PO ×2 (09:00→17:51)
--- NOTE | 2022-04-21 12:30 | PM.CNGS ---
Assessment and Plan Assessment and plan (1) Thrombosed external hemorrhoid: Code(s): K64.5 - Perianal venous thrombosis Status: Acute Assessment and Plan: she is quite symptomatic and after long discussion to proceed with exam under anesthesia and hemorrhoidectomy, will proceed with procedure tomorrow (2) Pancreatitis: Code(s): K85.90 - Acute pancreatitis without necrosis or infection, unspecified Status: Acute Assessment and Plan: questionable etiology as ultrasound does not show any gallstones, will continue to follow, exam largely benign History of Present Illness Consult details Consult date: 04/21/22 Reason for consult: other ( thrombosed hemorrhoids) Requesting physician: Dexter Kamara MD Narrative: The patient is a 51-year-old female presenting to the emergency department complaining of perirectal pain. The patient reports that she has had a history of hemorrhoids for least the last 3 years. The patient reports that she has occasional flares but usually controlled with [id number] measures. The patient has seen a surgeon in the past that did offer hemorrhoidectomy but the patient did not want to proceed at that time. The patient reports over the last week she has had a severe flare causing lots of discomfort in the area. The patient reports mild bleeding as well with bowel movements. Of note, patient is also noted to have elevated pancreatic enzymes and is currently undergoing workup for pancreatitis. She does complain of some epigastric abdominal pain photo not as severe as her perirectal pain. Review of Systems Constitutional: Constitutional: Reports as per HPI, Denies anorexia, Denies chills, Reports fatigue, Denies fever(s), Reports lethargy, Denies poor appetite, Reports weakness, Denies weight gain and Denies weight loss Eyes: Eyes: Reports no additional eye complaints ENT: Reports system reviewed and no additional complaints, except as documented Cardiovascular: Cardiovascular: Reports no additional cardiovascular complaints Respiratory: Respiratory: Reports no additional respiratory complaints Gastrointestinal: Gastrointestinal: Reports as per HPI, Denies abdominal pain, Reports bloating, Reports hematochezia, Reports change in bowel habits, Denies GI cramping, Reports early satiety, Denies heartburn, Denies fecal incontinence, Denies loose stools, Denies nausea and Denies vomiting Genitourinary: Genitourinary: Reports no additional female genitourinary complaints Musculoskeletal: Musculoskeletal: Reports no additional musculoskeletal complaints Integumentary/Breasts: Skin/Breast: Reports system reviewed and no additional complaints, except as docu Neurologic: Reports system reviewed and no additional complaints, except as documented Psychiatric: Psychiatric: Reports no additional psychiatric complaints Endocrine: Endocrine: Reports no additional endocrine complaints Hematologic/Lymphatic: Hematologic/Lymphatic: Reports no additional hematologic/lymphatic complaints Allergic/Immunologic: Allergic/Immunologic: Reports no additional allergic/immunologic complaints PMFSH Past Medical History Medical History Abdominal pain Hemorrhoids Hypertension Surgical History Surgical History No pertinent past surgical history Social History Social History Smoking status: Never smoker Alcohol intake: never Substance use: never Lack of Transportation: No Lack of Food: Never True Current Housing: I Have Housing Concerned About Future Housing: No Difficulty Paying Gas/Electric Bills: No Difficulty Paying for Meds: No Currently Unemployed: No Education: High School Diploma/GED Difficulty w/ Childcare or Family Care: No Gender identity (if verbalized by the patient): Female Sp
[2022-04-21] MEDS: MORPHINE SULFATE (*CRX) 4 MG/ML INJ IV PUSH (13:17)
[2022-04-21 14:00] VITALS: BP 116/83; PULSE 61; RESP 16; TEMP 36.6; O2SAT 100
[2022-04-21 16:14] LABS: Lipase 719 U/L (23-300)
--- NOTE | 2022-04-21 17:19 | PM.IMPN ---
Progress Note: A&P Assessment and Plan (1) Hemorrhoids: Code(s): K64.9 - Unspecified hemorrhoids Status: Acute Assessment and Plan: Acute on chronic exacerbation secondary to worsened diarrhea Appreciate general surgery consultation Thrombosed hemorrhoids noted, hemorrhoidectomy to be performed tomorrow in the OR (2) Hypertension: Code(s): I10 - Essential (primary) hypertension Status: Acute Assessment and Plan: Stable, continue home meds (3) Abdominal pain: Code(s): R10.9 - Unspecified abdominal pain Status: Acute Assessment and Plan: Likely secondary to being on Flagyl causing diarrhea, resolved at this time Appreciate GI consultation Will check a HIDA scan to rule out gallbladder dysfunction contributing to abdominal discomfort Possibly from pancreatitis? Lipase was 1579 on admission, down to 719 today, unsure of etiology, follow-up lipid panel (4) Diarrhea: Code(s): R19.7 - Diarrhea, unspecified Status: Acute Assessment and Plan: Likely antibiotic associated, improving Plan DVT prophylaxis with SCDs GI prophylaxis with PPI Code status full code Subjective Date/time seen: 04/21/22 17:19 Exam Narrative: General: No acute distress, alert and oriented per baseline HEENT: Atraumatic, normocephalic, mucous membranes moist CV: Regular rate and rhythm, S1, S2 Lungs: Clear to auscultation bilaterally, no rales or crackles noted, no wheezes, good air entry Abdomen: Soft, nontender, nondistended Extremities: Normal to inspection Skin: No rashes noted, no lesions or wounds seen Psych: Euthymic, normal affect Objective Data Vital Signs Vital Signs: Vital Signs - 24 hr 04/20/22 20:00 04/20/22 21:36 04/21/22 05:44 Temperature 97.2 F L 97.6 F Pulse Rate 63 68 Respiratory Rate 14 14 Blood Pressure 120/71 114/68 Pulse Oximetry 100 100 Oxygen Delivery Room Air 04/21/22 09:00 04/21/22 14:00 Temperature 97.8 F Pulse Rate 61 Respiratory Rate 16 Blood Pressure 116/83 Pulse Oximetry 100 Oxygen Delivery Room Air Intake/Output Intake/Output: Intake & Output 04/18/22 04/19/22 04/20/22 04/21/22 23:59 23:59 23:59 23:59 Intake Total 2100 2720 Output Total 600 100 Balance 1500 2620 Meds/Results Medications: Active Medications Generic Name Dose Route Start Last Admin Trade Name Freq PRN Reason Stop Dose Admin Acetaminophen 500 mg 04/21/22 15:18 Acetaminophen 500 Mg Tablet PO Q4H PRN Mild Pain (1-3) or Fever Hydrocodone Bitart/Acetaminophen 1 tab 04/21/22 15:18 Hydrocodone/Acetaminophen (*Crx) 5-325 Mg Tablet PO Q4H PRN Pain Rated 4-6 Acyclovir 400 mg 04/20/22 11:00 04/21/22 09:00 Acyclovir 400 Mg Tablet PO 400 mg BID LYNN Administration Famotidine 20 mg 04/20/22 11:00 04/21/22 09:00 Famotidine 20 Mg Tablet PO 20 mg DAILY LYNN Administration Hydrochlorothiazide 12.5 mg 04/21/22 09:00 04/21/22 09:00 Hydrochlorothiazide 12.5 Mg Capsule PO 12.5 mg DAILY LYNN Administration Hydrocortisone Acetate 25 mg 04/20/22 21:00 04/21/22 09:00 Hydrocortisone Acetate 25 Mg Suppository RECTAL 25 mg Q12HR LYNN Administration Sodium Chloride 1,000 mls @ 175 mls/hr 04/20/22 05:35 04/21/22 12:26 Normal Saline Iv IV CONT 175 mls/hr .Q5H43M LYNN Infusion Lisinopril 10 mg 04/21/22 09:00 04/21/22 09:00 Lisinopril 10 Mg Tablet PO 10 mg DAILY LYNN Administration Ondansetron HCl 4 mg 04/20/22 05:33 Ondansetron Inj 4 Mg/2 Ml Vial IV PUSH Q4H PRN Nausea Pantoprazole Sodium 40 mg 04/20/22 11:00 04/21/22 09:00 Pantoprazole Sodium Iv 40 Mg Vial IV PUSH 40 mg QAM LYNN Administration Radiology Results: ITS Impressions Abdomen/Pelvis CT 04/20/22 10:40 IMPRESSION: 1. No acute abdominal abnormality. 2: Enlarged fibroid uterus. 3: Possible cholelithiasis. Consider correlation with ultrasound.
[2022-04-21] MEDS: HYDROcodone/acetaminophen (*CRX) 5-325 MG TABLET 1 TAB PO (17:51)
[2022-04-21 20:00] VITALS: PULSE 64; RESP 18; O2SAT 98
--- NOTE | 2022-04-21 20:09 | WPDGIPROGNO ---
Progress Note: A&P Assessment and Plan (1) Thrombosed external hemorrhoid: Code(s): K64.5 - Perianal venous thrombosis Status: Acute Assessment and Plan: surgery tomorrow since she has been quite symptomatic (2) Diarrhea: Code(s): R19.7 - Diarrhea, unspecified Status: Acute Assessment and Plan: had colonoscopy about 4 years ago we can arrange one as outpatient in 1-2 months (3) Abdominal pain: Code(s): R10.9 - Unspecified abdominal pain Status: Acute Assessment and Plan: resolved (4) Pancreatitis: Code(s): K85.90 - Acute pancreatitis without necrosis or infection, unspecified Status: Acute Assessment and Plan: ? pancreatitis, no pain now and tolerated diet normal TG level Subjective Date/time seen: 04/21/22 20:09 Interval history: tolerated diet, still with anal discomfort Review of Systems Review of Systems: All systems reviewed & are unremarkable except as noted in HPI and below Exam Const: General: cooperative, no acute distress, uncomfortable and overweight HENMT: Head: normal to inspection, normocephalic and atraumatic Eyes: General: appearance normal, both eyes and all related structures Neck: Neck: normal visual inspection, full ROM and no lymphadenopathy Resp: Auscultation: clear to auscultation bilaterally Cardio: Rate: regular rate Rhythm: regular rhythm GI: Inspection: normal to inspection and non-distended GI Palp: No abdominal tenderness, Yes Soft to palpation, No Tenderness to palpation present (GI), No Guarding due to palpation present (GI) and No Rigid due to palpation Rectal Exam: External hemorrhoid(s) present Other: multiple thrombosed external hemorrhoids Skin: General skin exam: normal color and no rashes or lesions noted Neuro: General: patient oriented x3 and CN's II-XI intact bilaterally Extrem: General: normal to inspection and full ROM Psych: Appearance: grossly normal Objective Data Vital Signs Vital Signs: Vital Signs - 24 hr 04/20/22 21:36 04/21/22 05:44 04/21/22 09:00 Temperature 97.2 F L 97.6 F Pulse Rate 63 68 Respiratory Rate 14 14 Blood Pressure 120/71 114/68 Pulse Oximetry 100 100 Oxygen Delivery Room Air 04/21/22 14:00 Temperature 97.8 F Pulse Rate 61 Respiratory Rate 16 Blood Pressure 116/83 Pulse Oximetry 100 Oxygen Delivery Intake/Output Intake/Output: Intake & Output 04/18/22 04/19/22 04/20/22 04/21/22 23:59 23:59 23:59 23:59 Intake Total 2100 4270 Output Total 600 1500 Balance 1500 2770 Meds/Results Medications: Active Medications Generic Name Dose Route Start Last Admin Trade Name Freq PRN Reason Stop Dose Admin Acetaminophen 500 mg 04/21/22 15:18 Acetaminophen 500 Mg Tablet PO Q4H PRN Mild Pain (1-3) or Fever Hydrocodone Bitart/Acetaminophen 1 tab 04/21/22 15:18 04/21/22 17:51 Hydrocodone/Acetaminophen (*Crx) 5-325 Mg Tablet PO 1 tab Q4H PRN Administration Pain Rated 4-6 Acyclovir 400 mg 04/20/22 11:00 04/21/22 17:51 Acyclovir 400 Mg Tablet PO 400 mg BID LYNN Administration Famotidine 20 mg 04/20/22 11:00 04/21/22 09:00 Famotidine 20 Mg Tablet PO 20 mg DAILY LYNN Administration Hydrochlorothiazide 12.5 mg 04/21/22 09:00 04/21/22 09:00 Hydrochlorothiazide 12.5 Mg Capsule PO 12.5 mg DAILY LYNN Administration Hydrocortisone Acetate 25 mg 04/20/22 21:00 04/21/22 09:00 Hydrocortisone Acetate 25 Mg Suppository RECTAL 25 mg Q12HR LYNN Administration Sodium Chloride 1,000 mls @ 175 mls/hr 04/20/22 05:35 04/21/22 17:52 Normal Saline Iv IV CONT 175 mls/hr .Q5H43M LYNN Administration Lisinopril 10 mg 04/21/22 09:00 04/21/22 09:00 Lisinopril 10 Mg Tablet PO 10 mg DAILY LYNN Administration Ondansetron HCl 4 mg 04/20/22 05:33 Ondansetron Inj 4 Mg/2 Ml Vial IV PUSH Q4H PRN Nausea Pantoprazole Sodium 40 mg
[2022-04-21 22:00] VITALS: BP 108/65; PULSE 79; RESP 14; TEMP 36.6; O2SAT 99
[2022-04-22] VITALS (10 sets, daily range): BP systolic 122–154; BP diastolic 75–96; PULSE 66–82; RESP 14–18; TEMP 36.5–37.6; O2SAT 93–100
[2022-04-22] MEDS: SODIUM CHLORIDE 0.9% IV 1,000 ML 175 ML IV CONT ×3 (05:42→23:17)
--- NOTE | 2022-04-22 09:04 | P.PNAN_ITS ---
Anes - Initial Pre Proc Eval Procedure: Operation Date: 04/22/22 09:15 Proposed Procedures p Rectal Exam Under Anesthesia,Hemorrhoidectomy - rByanna Barrientos MD Date/Time: 04/22/22 09:04 Surgeon: Carlos Cox MD Pre Op Diagnosis: Pancreatitis, hemorrhoids Patient Data Age: 51 Gender: F Height: 1.65 m Weight: 80.1 kg Last Vital Signs Temp 98.4 F 04/22/22 08:03 Pulse 82 04/22/22 08:03 Resp 16 04/22/22 08:03 BP 130/87 04/22/22 08:03 Pulse Ox 100 04/22/22 08:03 O2 Del Method Room Air 04/22/22 08:03 Allergies Allergy/AdvReac Type Severity Reaction Status Date / Time No Known Allergies Allergy Verified 04/22/22 08:03 Home Medications Medication Instructions Recorded Confirmed Type lisinopril 30 mg tablet 10 mg PO DAILY 06/03/19 04/20/22 History acyclovir 400 mg tablet 400 mg PO BID 04/20/22 04/20/22 History famotidine 20 mg tablet 20 mg PO DAILY 04/20/22 04/20/22 History hydrochlorothiazide 12.5 mg tablet 12.5 mg PO DAILY 04/20/22 04/20/22 History Laboratory Tests 04/21/22 05:43 Lipase 719 U/L H U/L (23-300) Patient hx anesthesia problems: none Family hx anesthesia problems: none Results Review: All pre-operative results and documents have been reviewed as part of the pre- operative evaluation. [facility] Past Medical History Medical History Abdominal pain Hemorrhoids Hypertension Surgical History Surgical History No pertinent past surgical history Social History Social History Smoking status: Never smoker Alcohol intake: never Substance use: never Lack of Transportation: No Lack of Food: Never True Current Housing: I Have Housing Concerned About Future Housing: No Difficulty Paying Gas/Electric Bills: No Difficulty Paying for Meds: No Currently Unemployed: No Education: High School Diploma/GED Difficulty w/ Childcare or Family Care: No Gender identity (if verbalized by the patient): Female Spiritual care concerns: No Anes - Eval Final PreProcedure Day of Procedure 04/22/22 09:04 Patient weight: obese Heart: regular rate and rhythm Lungs: clear to auscultation Airway: Mallampati scale class II Neurological: alert and oriented Last oral intake: >/= 8 hours ASA classification: III Emergent: no Anesthetic plan: proceed Anesthesia type and monitoring: general LMA and standard monitoring Results Review: All pre-operative results and documents have been reviewed as part of the pre- operative evaluation. Informed Consent: The patient's anesthetic plan and its attendant risks and benefits were discussed with the patient/family/POA. Questions were solicited and answers provided to the satisfaction of the patient/family/POA.
[2022-04-22] MEDS: ceFAZolin 2 GM/D5W 50 ML 2 GM/50 ML BAG IVPB (09:05)
--- NOTE | 2022-04-22 09:05 | WPDHPUPDATE1 ---
History and Physical Update Update Date/Time: 04/22/22 09:05 History and Physical has been reviewed, including an updated exam of the patient. There are NO changes in the patient's condition. Risks, benefits, and alternatives have been discussed and questions answered. Patient agrees to proceed with procedure.
[2022-04-22] MEDS: LIDOCAINE HCL 2% GEL UROJET 10 ML PKG MUCOUS MEM (09:23)
[2022-04-22] MEDS: LIDOCAINE HCL 1% PF 30 ML VIAL INFILTRATE (09:28)
[2022-04-22] MEDS: LACTATED RINGERS 1,000 ML 30 ML IV CONT (09:45)
--- NOTE | 2022-04-22 09:54 | PM.IMPN ---
Progress Note: A&P Assessment and Plan (1) Hemorrhoids: Code(s): K64.9 - Unspecified hemorrhoids Status: Acute Assessment and Plan: Acute on chronic exacerbation secondary to worsened diarrhea Appreciate general surgery consultation Thrombosed hemorrhoids noted, hemorrhoidectomy in the OR today (2) Hypertension: Code(s): I10 - Essential (primary) hypertension Status: Acute Assessment and Plan: Stable, continue home meds (3) Abdominal pain: Code(s): R10.9 - Unspecified abdominal pain Status: Acute Assessment and Plan: Likely secondary to being on Flagyl causing diarrhea, resolved at this time Appreciate GI consultation Will check a HIDA scan to rule out gallbladder dysfunction contributing to abdominal discomfort Possibly from pancreatitis? Lipase was 1579 on admission, down to 719 today, unsure of etiology, follow-up lipid panel (4) Diarrhea: Code(s): R19.7 - Diarrhea, unspecified Status: Acute Assessment and Plan: Likely antibiotic associated, improving Plan DVT prophylaxis with SCDs GI prophylaxis with PPI Code status full code Subjective Date/time seen: 04/22/22 09:54 Interval history: No overnight events noted. No chest pain or shortness of breath. No nausea, vomiting or diarrhea. No fevers or chills. OR for hemorrhoidectomy today. Review of Systems Review of Systems: 12 point review of systems was assessed and was negative except as noted in the HPI Exam Narrative: General: No acute distress, alert and oriented per baseline HEENT: Atraumatic, normocephalic, mucous membranes moist CV: Regular rate and rhythm, S1, S2 Lungs: Clear to auscultation bilaterally, no rales or crackles noted, no wheezes, good air entry Abdomen: Soft, nontender, nondistended Extremities: Normal to inspection Skin: No rashes noted, no lesions or wounds seen Psych: Euthymic, normal affect Objective Data Vital Signs Vital Signs: Vital Signs - 24 hr 04/21/22 14:00 04/21/22 20:00 04/21/22 22:00 Temperature 97.8 F 97.8 F Pulse Rate 61 64 79 Respiratory Rate 16 18 14 Blood Pressure 116/83 108/65 Pulse Oximetry 100 98 99 Oxygen Delivery Room Air Oxygen Flow Rate 04/22/22 06:00 04/22/22 08:03 04/22/22 09:45 Temperature 98 F 98.4 F 97.7 F Pulse Rate 80 82 75 Respiratory Rate 14 16 17 Blood Pressure 132/79 130/87 122/80 Pulse Oximetry 100 100 100 Oxygen Delivery Room Air Simple Face Mask Oxygen Flow Rate 6 Intake/Output Intake/Output: Intake & Output 04/19/22 04/20/22 04/21/22 04/22/22 23:59 23:59 23:59 23:59 Intake Total 2100 5270 1050 Output Total 600 1500 700 Balance 1500 3770 350 Meds/Results Medications: Active Medications Generic Name Dose Route Start Last Admin Trade Name Freq PRN Reason Stop Dose Admin Acetaminophen 500 mg 04/21/22 15:18 Acetaminophen 500 Mg Tablet PO Q4H PRN Mild Pain (1-3) or Fever Hydrocodone Bitart/Acetaminophen 1 tab 04/21/22 15:18 04/21/22 17:51 Hydrocodone/Acetaminophen (*Crx) 5-325 Mg Tablet PO 1 tab Q4H PRN Administration Pain Rated 4-6 Acyclovir 400 mg 04/20/22 11:00 04/21/22 17:51 Acyclovir 400 Mg Tablet PO 400 mg BID LYNN Administration Famotidine 20 mg 04/20/22 11:00 04/21/22 09:00 Famotidine 20 Mg Tablet PO 20 mg DAILY LYNN Administration Fentanyl Citrate 25 mcg 04/22/22 09:05 Fentanyl Citrate Inj (*Crx) 100 Mcg/2 Ml Vial IV PUSH Q2M PRN Pain Hydrochlorothiazide 12.5 mg 04/21/22 09:00 04/21/22 09:00 Hydrochlorothiazide 12.5 Mg Capsule PO 12.5 mg DAILY LYNN Administration Hydrocortisone Acetate 25 mg 04/20/22 21:00 04/21/22 20:25 Hydrocortisone Acetate 25 Mg Suppository RECTAL 25 mg Q12HR LYNN Administration Sodium Chloride 1,000 mls @ 175 mls/hr 04/20/22 05:35 04/22/22 05:42 Normal Saline Iv IV CONT 175 mls/hr .Q5H43M LYNN Administration
[2022-04-22] MEDS: fentaNYL CITRATE INJ (*CRX) 100 MCG/2 ML VIAL 25 MCG IV PUSH ×4 (10:06→10:25)
--- NOTE | 2022-04-22 10:09 | W.PM.PROC2 ---
Procedure Note - Detailed Date of Procedure 04/22/22 Pre-op Diagnosis thrombosed external hemorrhoids Post-op Diagnosis Same Procedure Performed Exam under anesthesia, external hemorrhoidectomy involving left lateral and right anterior positions Surgeon Bryanna Barrientos MD Anesthesia General Indications 51 y/o F c multiple external thrombosed hemorrhoids causing pain, burning, bleeding c bowel movements Findings multiple thrombosed external hemorrhoids predominately in L lateral and R anterior positions Description of Procedure The patient was taken to the operating room and placed in the modified lithotomy position. After adequate induction of general anesthesia, the patient was prepped and draped in the normal sterile fashion. A time-out was then done to verify the patient's identity, as well as the procedure being performed. I began by doing a digital exam. There was noted to be multiple thrombosed external hemorrhoids, however no internal hemorrhoids were noted. At this point, a bilateral pudendal block was done. Then used the lone Star retractor to further evaluate the anal canal as well as rectum, noting no other pathology. I then began excising the external hemorrhoids using the hand-held LigaSure device. The hemorrhoids were noted to be in the left lateral and right anterior positions. Multiple hemorrhoids were excised using the Ligasure and the specimens will be sent to pathology for further review. Hemostasis was noted at all excision sites. I then placed lidocaine jelly into the rectal vault. The patient tolerated the procedure and was extubated in the operating room postop. She will be transferred to the recovery room in stable condition. Implants lidocaine jelly in the rectal vault Estimated Blood Loss 10 Drains No Packing Yes Pathology Yes Complications No immediate complications Condition Stable Disposition PACU [facility] Billing Surgery - Charge Forward: Surgery Billing
[2022-04-22] MEDS: hydroCHLOROthiazide 12.5 MG CAPSULE PO (11:31)
[2022-04-22] MEDS: lisinopriL 10 MG TABLET PO (11:31)
[2022-04-22] MEDS: HYDROcodone/acetaminophen (*CRX) 5-325 MG TABLET 1 TAB PO ×3 (11:31→23:17)
[2022-04-22] MEDS: FAMOTIDINE 20 MG TABLET PO (11:31)
[2022-04-22] MEDS: ACYCLOVIR 400 MG TABLET PO ×2 (11:32→17:15)
--- NOTE | 2022-04-22 13:24 | WPDGIPROGNO ---
Progress Note: A&P Assessment and Plan (1) Thrombosed external hemorrhoid: Code(s): K64.5 - Perianal venous thrombosis Status: Acute Assessment and Plan: s/p hemorrhoidectomy (2) Diarrhea: Code(s): R19.7 - Diarrhea, unspecified Status: Acute Assessment and Plan: we will arrange one as outpatient in 1-2 months (3) Abdominal pain: Code(s): R10.9 - Unspecified abdominal pain Status: Acute Assessment and Plan: improved (4) Pancreatitis: Code(s): K85.90 - Acute pancreatitis without necrosis or infection, unspecified Status: Acute Assessment and Plan: ? pancreatitis, no pain now and tolerated diet discharge plan per surgery Subjective Date/time seen: 04/22/22 13:24 Interval history: underwent hemorrhoidectomy Review of Systems Review of Systems: All systems reviewed & are unremarkable except as noted in HPI and below Exam Const: General: cooperative, no acute distress and overweight Other: recovering from hemorrhoidectomy HENMT: Head: normal to inspection, normocephalic and atraumatic Eyes: General: appearance normal, both eyes and all related structures Neck: Neck: normal visual inspection, full ROM and no lymphadenopathy Resp: Auscultation: clear to auscultation bilaterally Cardio: Rate: regular rate Rhythm: regular rhythm GI: Inspection: normal to inspection and non-distended GI Palp: No abdominal tenderness, Yes Soft to palpation, No Tenderness to palpation present (GI), No Guarding due to palpation present (GI) and No Rigid due to palpation Rectal Exam: External hemorrhoid(s) present Other: multiple thrombosed external hemorrhoids Skin: General skin exam: normal color and no rashes or lesions noted Neuro: General: patient oriented x3 and CN's II-XI intact bilaterally Extrem: General: normal to inspection and full ROM Psych: Appearance: grossly normal Objective Data Vital Signs Vital Signs: Vital Signs - 24 hr 04/21/22 14:00 04/21/22 20:00 04/21/22 22:00 Temperature 97.8 F 97.8 F Pulse Rate 61 64 79 Respiratory Rate 16 18 14 Blood Pressure 116/83 108/65 Pulse Oximetry 100 98 99 Oxygen Delivery Room Air Oxygen Flow Rate 04/22/22 06:00 04/22/22 08:03 04/22/22 09:45 Temperature 98 F 98.4 F 97.7 F Pulse Rate 80 82 75 Respiratory Rate 14 16 17 Blood Pressure 132/79 130/87 122/80 Pulse Oximetry 100 100 100 Oxygen Delivery Room Air Simple Face Mask Oxygen Flow Rate 6 04/22/22 10:00 04/22/22 10:15 04/22/22 10:30 Temperature Pulse Rate 66 69 72 Respiratory Rate 16 16 14 Blood Pressure 143/87 H 154/96 H 153/93 H Pulse Oximetry 100 98 93 Oxygen Delivery Simple Face Mask Room Air Room Air Oxygen Flow Rate 6 04/22/22 10:45 Temperature Pulse Rate 69 Respiratory Rate 15 Blood Pressure 142/96 H Pulse Oximetry 94 Oxygen Delivery Room Air Oxygen Flow Rate Intake/Output Intake/Output: Intake & Output 04/19/22 04/20/22 04/21/22 04/22/22 23:59 23:59 23:59 23:59 Intake Total 2100 5270 1150 Output Total 600 1500 700 Balance 1500 3770 450 Meds/Results Medications: Active Medications Generic Name Dose Route Start Last Admin Trade Name Sheldonq PRN Reason Stop Dose Admin Acetaminophen 500 mg 04/21/22 15:18 Acetaminophen 500 Mg Tablet PO Q4H PRN Mild Pain (1-3) or Fever Hydrocodone Bitart/Acetaminophen 1 tab 04/21/22 15:18 04/22/22 11:31 Hydrocodone/Acetaminophen (*Crx) 5-325 Mg Tablet PO 1 tab Q4H PRN Administration Pain Rated 4-6 Acyclovir 400 mg 04/20/22 11:00 04/22/22 11:32 Acyclovir 400 Mg Tablet PO 400 mg BID LYNN Administration Famotidine 20 mg 04/20/22 11:00 04/22/22 11:31 Famotidine 20 Mg Tablet PO 20 mg DAILY LYNN Administration Hydrochlorothiazide 12.5 mg 04/21/22 09:00 04/22/22 11:31 Hydrochlorothiazide 12.5 Mg Capsule PO 12.5 mg DAILY LYNN Administration Hydrocortisone Acetate 25 mg
[2022-04-22 13:43] LABS: Basophils Absolute Auto 0.1 K/mm3 (0.0-0.1); Basophils Percent Auto 0.5 % (0.2-1.2); Eosinophils Percent Auto 0.1 % (0-4.4); Hematocrit 36.7 % (37.0-47.0); Hemoglobin 12.2 g/dL (12.0-15.0); Immature Granulocyte Absolute 0.24 K/mm3 (0.00-0.031); Immature Granulocyte Percent A 2.4 % (0-0.5); Lymphocytes Absolute Auto 1.14 K/mm3 (0.9-3.2); Lymphocytes Percent Auto 11.2 % (18.3-44.2); Mean Corpuscular HGB Conc 33.2 g/dl (32-36); Mean Corpuscular Hemoglobin 31.5 pg (26-34); Mean Corpuscular Volume 94.8 fl (80-100); Mean Platelet Volume 9.6 fl (7.4-10.4); Monocytes Absolute Auto 0.3 K/mm3 (0.1-0.6); Monocytes Percent Auto 2.9 % (2.6-8.5); Neutrophils Absolute Auto 8.4 K/mm3 (1.3-6.7); Neutrophils Percent Auto 82.9 % (45.5-73.1); Platelet Count Result 283 k/mm3 (150-375); Red Blood Count 3.87 M/mm3 (4.2-5.4); Red Cell Distribution Width 14.4 % (11.5-14.5); White Blood Count 10.2 K/mm3 (4.5-10.0)
[2022-04-22 13:45] LABS: Alanine Aminotransferase 22 U/L (6-35); Albumin Level 3.7 g/dL (3.5-5.1); Alkaline Phosphatase 75 U/L (38-126); Anion Gap 6 mmol/L (8-16); Aspartate Amino Transferase 26 U/L (14-36); Bilirubin,Total 0.3 mg/dL (0.2-1.3); Blood Urea Nitrogen 7 mg/dL (7-17); Calcium 8.6 mg/dL (8.4-10.2); Carbon Dioxide 24 mmol/L (22-30); Chloride 108 mmol/L (98-107); Estimated CRCL calculation 60 ml/min; Estimated Glomerular Filt Rate > 60; Glucose 105 mg/dL (65-110); Lipase 334 U/L (23-300); Potassium 3.7 mmol/L (3.4-5.0); Sodium 138 mmol/L (137-145)
--- NOTE | 2022-04-22 14:50 | PC.NURSE ---
Pt went down first thing this shift for procedure. Pt returned to unit and states she is still in pain. Pt suppository has been D/C'd per verbal order from Dr. Roman. Pt will have HIDA scan tomorrow. Pt is A&O4 and participates and contributes in plan of care. Pt has no complaints other than pain that is being treated with PO pain medication. I attempted to call son at 1229 per pt to update him, but was unable to make contact. NO message was left. Will continue to monitor pt.
[2022-04-23 06:26] VITALS: BP 125/71; PULSE 57; RESP 14; TEMP 37.1; O2SAT 98
[2022-04-23 06:33] LABS: Basophils Percent Auto 0.2 % (0.2-1.2); Eosinophils Percent Auto 0.4 % (0-4.4); Hematocrit 29.6 % (37.0-47.0); Hemoglobin 9.9 g/dL (12.0-15.0); Immature Granulocyte Absolute 0.12 K/mm3 (0.00-0.031); Immature Granulocyte Percent A 1.5 % (0-0.5); Lymphocytes Absolute Auto 2.26 K/mm3 (0.9-3.2); Lymphocytes Percent Auto 27.7 % (18.3-44.2); Mean Corpuscular HGB Conc 33.4 g/dl (32-36); Mean Corpuscular Hemoglobin 31.1 pg (26-34); Mean Corpuscular Volume 93.1 fl (80-100); Mean Platelet Volume 9.4 fl (7.4-10.4); Monocytes Absolute Auto 0.9 K/mm3 (0.1-0.6); Monocytes Percent Auto 10.5 % (2.6-8.5); Neutrophils Absolute Auto 4.9 K/mm3 (1.3-6.7); Neutrophils Percent Auto 59.7 % (45.5-73.1); Platelet Count Result 237 k/mm3 (150-375); Red Blood Count 3.18 M/mm3 (4.2-5.4); Red Cell Distribution Width 14.3 % (11.5-14.5); White Blood Count 8.2 K/mm3 (4.5-10.0)
[2022-04-23 06:41] LABS: Alanine Aminotransferase 18 U/L (6-35); Albumin Level 3.2 g/dL (3.5-5.1); Alkaline Phosphatase 61 U/L (38-126); Anion Gap 3 mmol/L (8-16); Aspartate Amino Transferase 31 U/L (14-36); Bilirubin,Total 0.4 mg/dL (0.2-1.3); Blood Urea Nitrogen 5 mg/dL (7-17); Calcium 8.4 mg/dL (8.4-10.2); Carbon Dioxide 24 mmol/L (22-30); Chloride 110 mmol/L (98-107); Estimated CRCL calculation 55 ml/min; Estimated Glomerular Filt Rate > 60; Glucose 95 mg/dL (65-110); Potassium 3.4 mmol/L (3.4-5.0); Sodium 137 mmol/L (137-145)
--- NOTE | 2022-04-23 07:50 | PM.DS ---
DS: Admitting Diagnosis Discharge Date 04/23/22 Admitting Diagnosis rectal bleeding DS: Discharge Diagnosis Discharge Diagnosis (1) Hemorrhoids: Code(s): K64.9 - Unspecified hemorrhoids Status: Acute Assessment and Plan: Acute on chronic exacerbation secondary to worsened diarrhea Appreciate general surgery consultation Thrombosed hemorrhoids noted, hemorrhoidectomy in the OR today (2) Hypertension: Code(s): I10 - Essential (primary) hypertension Status: Acute Assessment and Plan: Stable, continue home meds (3) Abdominal pain: Code(s): R10.9 - Unspecified abdominal pain Status: Acute Assessment and Plan: Likely secondary to being on Flagyl causing diarrhea, resolved at this time Appreciate GI consultation Will check a HIDA scan to rule out gallbladder dysfunction contributing to abdominal discomfort Possibly from pancreatitis? Lipase was 1579 on admission, down to 719 today, unsure of etiology, follow-up lipid panel (4) Diarrhea: Code(s): R19.7 - Diarrhea, unspecified Status: Acute Assessment and Plan: Likely antibiotic associated, improving Plan DVT prophylaxis with SCDs GI prophylaxis with PPI Code status full code DS: Summary Hospital Course Hospital Course: 51-year-old female with past medical history of hypertension and hemorrhoids is presenting with rectal bleeding thought to be secondary to hemorrhoids.? She states she has had diarrhea over the last week and worsening hemorrhoid and rectal pain.? She has also noted bleeding with every bowel movement that is bright red blood.? She denies nausea, vomiting or fevers or chills.? No chest pain or shortness of breath.? No sick contacts or recent travel.? She was recently placed on metronidazole for bacterial vaginosis.? She thinks this is when her diarrhea started.? She also admits to abdominal bloating and distension.? CT abdomen and pelvis as well as right upper quadrant ultrasound were done and were essentially nonacute only showing possible cholelithiasis.? Labs were essentially within normal limits. General surgery was consulted. Thrombosed hemorrhoids were noted, patient was taken to the OR on April 22 for hemorrhoidectomy. Gastroenterology was consulted. They will arrange an outpatient colonoscopy. Pancreatitis was possible, however, due to her quick resolution, this is thought to be secondary to possible cholelithiasis. HIDA scan was negative. Follow-up outpatient with General surgery and Gastroenterology. Time Spent with Patient Time attestation: Total time spent providing and/or coordinating discharge services: Exam Narrative: General: No acute distress, alert and oriented per baseline HEENT: Atraumatic, normocephalic, mucous membranes moist CV: Regular rate and rhythm, S1, S2 Lungs: Clear to auscultation bilaterally, no rales or crackles noted, no wheezes, good air entry Abdomen: Soft, nontender, nondistended Extremities: Normal to inspection Skin: No rashes noted, no lesions or wounds seen Psych: Euthymic, normal affect DS: Data Data Completed and Pending Pending studies at discharge: Pending at discharge 04/22/22 09:32 Surgical [PTH] Routine Labs on day of discharge: Labs from last 24 hours 04/23/22 04/23/22 04/22/22 06:09 06:09 13:09 WBC 8.2 RBC 3.18 L Hgb 9.9 L Hct 29.6 L MCV 93.1 MCH 31.1 MCHC 33.4 RDW 14.3 Plt Count 237 MPV 9.4 Immature Gran % (Auto) 1.5 H Neut % (Auto) 59.7 Lymph % (Auto) 27.7 [place] % (Auto) 10.5 H Eos % (Auto) 0.4 Baso % (Auto) 0.2 Lymph # (Auto) 2.26 [place] # (Auto) 0.9 H Eos # (Auto) 0.0 Baso # (Auto) 0.0 Abs Immat Gran (auto) 0.12 H Absolute Neuts (auto) 4.9 Absolute Nucleated RBC 0.0 Nucleated RBC % 0.0 Sodium 137 138 Potassium 3.4 3.7 Chloride 110 H 108 H Carbon Dioxide 24 24 Anion Gap 3 L 6
[2022-04-23] MEDS: lisinopriL 10 MG TABLET PO (10:01)
[2022-04-23] MEDS: PANTOPRAZOLE SODIUM IV 40 MG VIAL IV PUSH (10:01)
[2022-04-23] MEDS: hydroCHLOROthiazide 12.5 MG CAPSULE PO (10:01)
[2022-04-23] MEDS: FAMOTIDINE 20 MG TABLET PO (10:01)
[2022-04-23] MEDS: ACYCLOVIR 400 MG TABLET PO (10:01)
[2022-04-23] MEDS: HYDROcodone/acetaminophen (*CRX) 5-325 MG TABLET 1 TAB PO (10:05)
--- NOTE | 2022-04-23 11:01 | PM.PNGS ---
Progress Note: A&P Assessment and Plan (1) Thrombosed external hemorrhoid: Code(s): K64.5 - Perianal venous thrombosis Status: Acute Assessment and Plan: doing well, routine postop care, home c po analgesia, colace, f/u 2 wks Subjective Subjective Date/Time Seen: 04/23/22 11:01 feels much better, some soreness Review of Systems Review of Systems: All systems reviewed & are unremarkable except as noted in HPI and below Exam Const: General: cooperative, comfortable and no acute distress Resp: Auscultation: clear to auscultation bilaterally Cardio: Rate: regular rate Rhythm: regular rhythm GI: Inspection: normal to inspection Other: dressing C/D/I Objective Data Vital Signs Vital Signs: Vital Signs - 24 hr 04/22/22 14:00 04/22/22 21:09 04/22/22 20:00 Temperature 37.4 C 37.6 C Pulse Rate 72 67 67 Respiratory Rate 16 18 18 Blood Pressure 140/80 130/75 Pulse Oximetry 97 99 99 Oxygen Delivery Room Air 04/23/22 06:26 Temperature 37.1 C Pulse Rate 57 L Respiratory Rate 14 Blood Pressure 125/71 Pulse Oximetry 98 Oxygen Delivery Intake/Output Intake/Output: Intake & Output 04/20/22 04/21/22 04/22/22 04/23/22 23:59 23:59 23:59 23:59 Intake Total 2100 5270 3630 618 Output Total 600 1500 1800 2950 Balance 1500 3770 1830 -2332 Meds/Results Medications: Active Medications Generic Name Dose Route Start Last Admin Trade Name Freq PRN Reason Stop Dose Admin Acetaminophen 500 mg 04/21/22 15:18 Acetaminophen 500 Mg Tablet PO Q4H PRN Mild Pain (1-3) or Fever Hydrocodone Bitart/Acetaminophen 1 tab 04/21/22 15:18 04/23/22 10:05 Hydrocodone/Acetaminophen (*Crx) 5-325 Mg Tablet PO 1 tab Q4H PRN Administration Pain Rated 4-6 Acyclovir 400 mg 04/20/22 11:00 04/23/22 10:01 Acyclovir 400 Mg Tablet PO 400 mg BID LYNN Administration Famotidine 20 mg 04/20/22 11:00 04/23/22 10:01 Famotidine 20 Mg Tablet PO 20 mg DAILY LYNN Administration Hydrochlorothiazide 12.5 mg 04/21/22 09:00 04/23/22 10:01 Hydrochlorothiazide 12.5 Mg Capsule PO 12.5 mg DAILY LYNN Administration Sodium Chloride 1,000 mls @ 175 mls/hr 04/20/22 05:35 04/22/22 23:17 Normal Saline Iv IV CONT 175 mls/hr .Q5H43M LYNN Administration Lisinopril 10 mg 04/21/22 09:00 04/23/22 10:01 Lisinopril 10 Mg Tablet PO 10 mg DAILY LYNN Administration Ondansetron HCl 4 mg 04/20/22 05:33 Ondansetron Inj 4 Mg/2 Ml Vial IV PUSH Q4H PRN Nausea Pantoprazole Sodium 40 mg 04/20/22 11:00 04/23/22 10:01 Pantoprazole Sodium Iv 40 Mg Vial IV PUSH 40 mg QAM LYNN Administration Radiology Results: ITS Impressions Abdomen/Pelvis CT 04/20/22 10:40 IMPRESSION: 1. No acute abdominal abnormality. 2: Enlarged fibroid uterus. 3: Possible cholelithiasis. Consider correlation with ultrasound. Abdomen Ultrasound 04/20/22 11:00 IMPRESSION: 1: Normal limited abdominal ultrasound. Hepatobiliary Scan Nuclear Medicine 04/23/22 10:08 IMPRESSION: 1. Normal hepatobiliary scan. Labs Labs: Laboratory Results - last 24 hr 04/22/22 04/22/22 04/23/22 13:09 13:09 06:09 WBC 10.2 H 8.2 RBC 3.87 L 3.18 L Hgb 12.2 9.9 L Hct 36.7 L 29.6 L MCV 94.8 93.1 MCH 31.5 31.1 MCHC 33.2 33.4 RDW 14.4 14.3 Plt Count 283 237 MPV 9.6 9.4 Immature Gran % (Auto) 2.4 H 1.5 H Neut % (Auto) 82.9 H 59.7 Lymph % (Auto) 11.2 L 27.7 [place] % (Auto) 2.9 10.5 H Eos % (Auto) 0.1 0.4 Baso % (Auto) 0.5 0.2 Lymph # (Auto) 1.14 2.26 [place] # (Auto) 0.3 0.9 H Eos # (Auto) 0.0 0.0 Baso # (Auto) 0.1 0.0 Abs Immat Gran (auto) 0.24 H 0.12 H Absolute Neuts (auto) 8.4 H 4.9 Absolute Nucleated RBC 0.0 0.0 Nucleated RBC % 0.0 0.0 Sodium 138 Potassium 3.7 Chloride 108 H Carbon Dioxide 24 Anion Gap 6 L BUN 7 Creatinine 1.0
== END 2022-04-23 12:35 | disposition home or self-care (01) | DRG 226 ==
LOC: ANHED 02:17 → ANH3MEDSUR 06:03
PROVIDERS: Internal Medicine Gastroenterology; Surgery; Admitting Provider Internal Medicine; Emergency Provider Emergency Medicine; PCP Physician Assistant; Visit Provider Student in an Organized Health Care Education/Training Program
PROC: 06BY3ZC Excision of Hemorrhoidal Plexus, Percutaneous Approach (ICD-10-PCS; principal; 2022-04-22 09:15)
DX: K64.5 Perianal venous thrombosis (principal); K52.1 Toxic gastroenteritis and colitis; I10 Essential (primary) hypertension; K80.20 Calculus of gallbladder without cholecystitis without obstruction; T37.8X5A Adverse effect of other specified systemic anti-infectives and antiparasitics, initial encounter
CPT/HCPCS: 36415; 74176; 76705; 78226; 80053; 83690; 84478; 85025; 88304; 96361; 96374; 96375; 99285; A9270; A9537; C9113; G0378; G0379; J0131; J0500; J0690; J1100; J2250; J2270; J2405; J2704; J3010; J7030; J7120

== ENCOUNTER 2022-07-23 00:58 | Day surgery (SDC) | payer OTHER, SELFPAY ==
[2022-06-13 15:38] VITALS: BMI 28.3
[2022-07-23 06:46] VITALS: BP 107/78; PULSE 81; RESP 20; TEMP 36.3; O2SAT 100
[2022-07-23] MEDS: LACTATED RINGERS 1,000 ML 150 ML IV CONT (07:09)
--- NOTE | 2022-07-23 07:11 | SUR.PREOP ---
Pt unable to urinate. Pt states she had 1 period this year. No urine needed per Dr. Harris(anesthesiologist)
--- NOTE | 2022-07-23 07:37 | WPDANESEPPF ---
Anes - Initial Pre Proc Eval Procedure: Operation Date: 07/23/22 08:00 Proposed Procedures p Esophagogastroduodenoscopy & Screening Colonoscopy - Dexter Kamara MD Date/Time: 07/23/22 07:37 Surgeon: Dexter Kamara MD Pre Op Diagnosis: abdominal distension, neoplasm screening Patient Data Age: 51 Gender: F Height: 1.68 m Weight: 78.2 kg Last Vital Signs Temp 97.3 F L 07/23/22 06:46 Pulse 81 07/23/22 06:46 Resp 20 07/23/22 06:46 BP 107/78 07/23/22 06:46 Pulse Ox 100 07/23/22 06:46 O2 Del Method Room Air 07/23/22 06:46 Allergies Allergy/AdvReac Type Severity Reaction Status Date / Time No Known Allergies Allergy Verified 07/23/22 06:45 Home Medications Medication Instructions Recorded Confirmed Type acyclovir 400 mg tablet 400 mg PO BID 04/20/22 07/11/22 History famotidine 20 mg tablet 20 mg PO DAILY 04/20/22 07/11/22 History docusate sodium 100 mg capsule 100 mg PO BID #60 caps 05/14/22 07/11/22 Rx (Colace) Thyroid Support With Iodine 2 cap PO DAILY 06/13/22 07/11/22 History lisinopril 10 1 tablet PO DAILY 06/13/22 07/11/22 History mg-hydrochlorothiazide 12.5 mg tablet Patient hx anesthesia problems: none Family hx anesthesia problems: none Results Review: All pre-operative results and documents have been reviewed as part of the pre-operative evaluation. [facility] Past Medical History Medical History (Updated 05/30/22 @ 10:44 by Dexter Kamara MD) Abdominal pain Bloating Colon cancer screening Hemorrhoids Hypertension Surgical History Surgical History H/O hemorrhoidectomy EUA; external hemorrhoidectomy involving left lateral & right anterior positions 04/21/22 No pertinent past surgical history Social History Social History Smoking status: Never smoker Alcohol intake: never Substance use: never Substance use type: does not use Lack of Transportation: No Lack of Food: Never True Current Housing: I Have Housing Concerned About Future Housing: No Difficulty Paying Gas/Electric Bills: No Difficulty Paying for Meds: No Currently Unemployed: No Education: High School Diploma/GED Difficulty w/ Childcare or Family Care: No Living arrangements: with family Gender identity (if verbalized by the patient): Female Spiritual care concerns: No Anes - Eval Final PreProcedure Day of Procedure 07/23/22 07:37 Patient weight: normal Heart: regular rate and rhythm Lungs: clear to auscultation Airway: Mallampati scale Neurological: alert and oriented Last oral intake: >/= 8 hours ASA classification: III Emergent: no Anesthetic plan: proceed Anesthesia type and monitoring: general GIVS and standard monitoring Results Review: All pre-operative results and documents have been reviewed as part of the pre-operative evaluation. Informed Consent: The patient's anesthetic plan and its attendant risks and benefits were discussed with the patient/family/POA. Questions were solicited and answers provided to the satisfaction of the patient/family/POA.
--- NOTE | 2022-07-23 08:30 | PM.HPGS ---
History of Present Illness History of Present Illness Consent: Risks, benefits, and alternatives have been discussed and questions answered. Patient agrees to proceed with procedure. Chief complaint: abdominal distension, neoplasm screening Narrative: Verito Sanchez is a 51 year old female with previous hospitalization with pancreatitis now resolved, never had egd. Also had symptomatic hemorrhoids but treated surgically, now doing well. Review of Systems Constitutional: Constitutional: Denies headache(s) and Denies weakness Eyes: Eyes: Denies blurry vision ENT: Reports Normal hearing present, Denies headache(s) and Denies neck pain Cardiovascular: Cardiovascular: Denies chest pain and Denies dyspnea Respiratory: Respiratory: Denies dyspnea Gastrointestinal: Gastrointestinal: Reports no additional gastrointestinal complaints Genitourinary: Genitourinary: Denies dysuria Musculoskeletal: Musculoskeletal: Denies neck pain Integumentary/Breasts: Skin/Breast: Denies dry skin Neurologic: Reports Normal hearing present, Denies headache(s) and Denies weakness Psychiatric: Psychiatric: Denies anxiety Endocrine: Endocrine: Denies change in body appearance Hematologic/Lymphatic: Hematologic/Lymphatic: Denies easy bleeding Allergic/Immunologic: Allergic/Immunologic: Denies urticaria PMF Past Medical History Medical History (Updated 05/30/22 @ 10:44 by Dexter Kamara MD) Abdominal pain Bloating Colon cancer screening Hemorrhoids Hypertension Surgical History Surgical History H/O hemorrhoidectomy EUA; external hemorrhoidectomy involving left lateral & right anterior positions 04/21/22 No pertinent past surgical history Social History Social History Smoking status: Never smoker Alcohol intake: never Substance use: never Substance use type: does not use Lack of Transportation: No Lack of Food: Never True Current Housing: I Have Housing Concerned About Future Housing: No Difficulty Paying Gas/Electric Bills: No Difficulty Paying for Meds: No Currently Unemployed: No Education: High School Diploma/GED Difficulty w/ Childcare or Family Care: No Living arrangements: with family Gender identity (if verbalized by the patient): Female Spiritual care concerns: No Meds Home Medications and Allergies Home Medications Medication Instructions Recorded Confirmed Type acyclovir 400 mg tablet 400 mg PO BID 04/20/22 07/11/22 History famotidine 20 mg tablet 20 mg PO DAILY 04/20/22 07/11/22 History docusate sodium 100 mg capsule 100 mg PO BID #60 caps 05/14/22 07/11/22 Rx (Colace) Thyroid Support With Iodine 2 cap PO DAILY 06/13/22 07/11/22 History lisinopril 10 1 tablet PO DAILY 06/13/22 07/11/22 History mg-hydrochlorothiazide 12.5 mg tablet Allergies Allergy/AdvReac Type Severity Reaction Status Date / Time No Known Allergies Allergy Verified 07/23/22 06:45 Vital Signs Vital Signs - 24 hr 07/23/22 06:46 Temperature 97.3 F L Pulse Rate 81 Respiratory Rate 20 Blood Pressure 107/78 Pulse Oximetry 100 Oxygen Delivery Room Air Exam Const: General: comfortable and no acute distress HENMT: Face/Nose/Sinus: Normal nares present Eyes: General: appearance normal, both eyes and all related structures Neck: Neck: no JVD Resp: Auscultation: clear to auscultation bilaterally Cardio: Rate: regular rate Rhythm: regular rhythm GI: Inspection: non-distended GI Palp: Yes Soft to palpation Skin: General skin exam: normal color Neuro: General: gait normal Speech: normal speech Extrem: General: normal to inspection Psych: Mental Status: mental status grossly normal Assessment and Plan Assessment and plan (1) Bloating: Code(s): R14.0 - Abdominal distension (gaseous) Status: Acute Assessmen
[2022-07-23] MEDS: BENZOCAINE (*SP) 60 ML SPRAY CAN (HURRICAINE) 1 SPRAY MUCOUS MEM (08:42)
[2022-07-23 09:11] VITALS: BP 93/56; PULSE 77; RESP 19; O2SAT 100
[2022-07-23 09:21] VITALS: BP 113/52; PULSE 63; RESP 19; O2SAT 100
[2022-07-23 09:31] VITALS: BP 102/66; PULSE 64; RESP 21; O2SAT 100
== END 2022-07-23 09:50 | disposition home or self-care (01) ==
PROVIDERS: PCP Physician Assistant; Visit Provider Internal Medicine Gastroenterology
PROC: 0DJ08ZZ Inspection of Upper Intestinal Tract, Via Natural or Artificial Opening Endoscopic (ICD-10-PCS; CPT 43235; principal; 2022-07-23 08:00)
DX: Z12.11 Encounter for screening for malignant neoplasm of colon (principal); K57.30 Diverticulosis of large intestine without perforation or abscess without bleeding; K64.8 Other hemorrhoids; K44.9 Diaphragmatic hernia without obstruction or gangrene; K29.80 Duodenitis without bleeding; K29.50 Unspecified chronic gastritis without bleeding; I10 Essential (primary) hypertension
CPT/HCPCS: 45378; 43239; 88305; 88342; J2704; J7120

== ENCOUNTER 2023-09-11 12:36 | Emergency (ER) | payer OTHER, SELFPAY ==
--- NOTE | ~2023-09-11 | US_ITS ---
RIGHT LOWER EXTREMITY VENOUS ULTRASOUND Ordering provider: Mary Banerjee MD History: . edema . Comparison: None. FINDINGS: --COMMON FEMORAL: Patent and free of thrombus. Normal compressibility, phasic flow and augmentation. --PROXIMAL SUPERFICIAL FEMORAL: Patent and free of thrombus. Normal compressibility, phasic flow and augmentation. --DISTAL SUPERFICIAL FEMORAL: Patent and free of thrombus. Normal compressibility, phasic flow and au gmentation. --POPLITEAL: Patent and free of thrombus. Normal compressibility, phasic flow and augmentation. --POSTERIOR TIBIAL: Patent and free of thrombus. Normal compressibility, phasic flow and augmentation . IMPRESSION: Negative right lower extremity venous US. No deep vein thrombosis. Reviewed, dictated and finalized at location A.
--- NOTE | ~2023-09-11 | XR_ITS ---
XR knee RT 3V 09/11/2023 13:18 Indication: Right knee pain Procedure: 3 views right knee Comparison: No prior studies for comparison. Findings: There is a prominent osteochondroma originating from the medial femoral metaphysis. No frac ture or traumatic malalignment. No significant joint effusion. No foreign bodies. Impression: 1: Prominent osteochondroma originating from the right distal femoral metaphysis medially. Reviewed, dictated and finalized at location B. Impression: 1: Prominent osteochondroma originating from the right distal femoral metaphysi s medially.
[2023-09-11 12:43] VITALS: BP 107/79; PULSE 85; RESP 16; TEMP 37.1; O2SAT 100
--- NOTE | 2023-09-11 12:57 | ED.EXTPRO ---
HPI - Extremity Problem General Chief complaint: Extremity Problem,Nontraumatic Stated complaint: R knee swelling and pain Time Seen by Provider: 09/11/23 12:44 Source: patient Mode of arrival: ambulatory Limitations: no limitations History of Present Illness HPI Narrative: Patient presents with right knee swelling and pain since Friday. She describes it as tight, aching, 5 out of 10 in severity. No injury/trauma except she does note she had been doing a lot of kneeling with her daughter/granddaughter in a ball pit. No paresthesias. No priro injury/surgeries on this extremity. No fevers. Has not taken anything for pain. Related Data Home Medications Medication Instructions Recorded Confirmed acyclovir 400 mg tablet 400 mg PO BID 04/20/22 07/11/22 famotidine 20 mg tablet 20 mg PO DAILY 04/20/22 07/11/22 Thyroid Support With Iodine 2 cap PO DAILY 06/13/22 07/11/22 lisinopril 10 1 tablet PO DAILY 06/13/22 07/11/22 mg-hydrochlorothiazide 12.5 mg tablet Allergies Allergy/AdvReac Type Severity Reaction Status Date / Time No Known Allergies Allergy Verified 09/11/23 12:37 [facility] Past Medical History Medical History Abdominal pain Bloating Colon cancer screening Hemorrhoids Hypertension Tears of meniscus and ACL of left knee (2019) non operative Surgical History Surgical History H/O hemorrhoidectomy EUA; external hemorrhoidectomy involving left lateral & right anterior positions 04/21/22 No pertinent past surgical history Social History Social History Smoking status: Never smoker Alcohol intake: never Substance use: never Substance use type: does not use Lack of Transportation: No Lack of Food: Never True Current Housing: I Have Housing Concerned About Future Housing: No Difficulty Paying Gas/Electric Bills: No Difficulty Paying for Meds: No Currently Unemployed: No Education: High School Diploma/GED Difficulty w/ Childcare or Family Care: No Living arrangements: with family Gender identity (if verbalized by the patient): Female Spiritual care concerns: No Exam Narrative: GENERAL: Well-appearing, well-nourished, and in no acute distress. HEAD: Normocephalic, atraumatic. EYES: Non injected, non icteric ENT: Nares clear, no rhinorrhea or epistaxis. NECK: Supple. CHEST: Speaking in full sentences. No respiratory distress. HEART: Regular rate and rhythm. . ABDOMEN: Soft, nondistended. EXTREMITIES: Normal range of motion. RIght knee more swollen than left but without overlying skin changes like cellulitis. No palpable cystic structure. Right knee not particularly warm to the touch. Easily palpable and manipulated without tenderness. SKIN: Warm, dry, no rash. NEURO: No focal deficits. Alert and oriented x3. Strength intact throughout bilateral lower extremities, symmetric. 5/5 strength bilateral ankle dorsiflexion/plantarflexion, knee flexion/extension; hip abduction/adduction/flexion. PSYCH: Normal mood and affect. Course Vital Signs Vital signs: Vital Signs Temperature 98.8 F 09/11/23 12:43 Pulse Rate 85 09/11/23 12:43 Respiratory Rate 16 09/11/23 12:43 Blood Pressure 107/79 09/11/23 12:43 Pulse Oximetry 100 09/11/23 12:43 Oxygen Delivery Room Air 09/11/23 12:43 Temperature 98.8 F 09/11/23 12:43 Pulse Rate 85 09/11/23 12:43 Respiratory Rate 16 09/11/23 12:43 Blood Pressure 107/79 09/11/23 12:43 Pulse Oximetry 100 09/11/23 12:43 Oxygen Delivery Room Air 09/11/23 12:43 MDM - Extremity (Nontraumatic) MDM Narrative Medical decision making narrative: Patient presents with right knee pain since Friday. In the ED she is afebrile with vs within normal limits. Physical exam with some swelling at the knee but without appearance of chuck inf
--- NOTE | 2023-09-11 13:19 | PC.NURSE ---
Patient in US
[2023-09-11 14:08] LABS: Basophils Percent Auto 0.3 % (0.2-1.2); Eosinophils Absolute Auto 0.2 K/mm3 (0-0.3); Eosinophils Percent Auto 1.9 % (0-4.4); Hematocrit 38.4 % (37.0-47.0); Hemoglobin 12.9 g/dL (12.0-15.0); Immature Granulocyte Absolute 0.02 K/mm3 (0.00-0.031); Immature Granulocyte Percent A 0.2 % (0-0.5); Lymphocytes Absolute Auto 2.61 K/mm3 (0.9-3.2); Lymphocytes Percent Auto 29.2 % (18.3-44.2); Mean Corpuscular HGB Conc 33.6 g/dl (32-36); Mean Corpuscular Hemoglobin 31.2 pg (26-34); Mean Corpuscular Volume 92.8 fl (80-100); Mean Platelet Volume 9.2 fl (7.4-10.4); Monocytes Absolute Auto 0.6 K/mm3 (0.1-0.6); Monocytes Percent Auto 6.5 % (2.6-8.5); Neutrophils Absolute Auto 5.5 K/mm3 (1.3-6.7); Neutrophils Percent Auto 61.9 % (45.5-73.1); Platelet Count Result 360 k/mm3 (150-375); Red Blood Count 4.14 M/mm3 (4.2-5.4); Red Cell Distribution Width 13.2 % (11.5-14.5); White Blood Count 8.9 K/mm3 (4.5-10.0)
[2023-09-11] MEDS: HYDROcodone/acetaminophen (*CRX) 5-325 MG TABLET 1 TAB PO (14:10)
[2023-09-11 14:17] LABS: Alanine Aminotransferase 24 U/L (6-35); Albumin Level 4.7 g/dL (3.5-5.1); Alkaline Phosphatase 113 U/L (38-126); Anion Gap 7 mmol/L (4-12); Aspartate Amino Transferase 34 U/L (14-36); Bilirubin,Total 0.5 mg/dL (0.2-1.3); Blood Urea Nitrogen 13 mg/dL (7-17); Calcium 9.9 mg/dL (8.4-10.2); Carbon Dioxide 28 mmol/L (22-30); Chloride 106 mmol/L (98-107); Estimated CRCL calculation 53 ml/min; Estimated Glomerular Filt Rate > 60; Glucose 78 mg/dL (65-110); Potassium 3.7 mmol/L (3.4-5.0); Sodium 141 mmol/L (137-145)
[2023-09-11 14:19] LABS: Partial Thromboplastin Time 32.3 Seconds (22.3-36.8); Prothrombin Time 13.2 Seconds (11.1-14.7)
[2023-09-11] MEDS: KETOROLAC 30 MG/ML VIAL (*BKC) 15 MG IM (14:37)
== END 2023-09-11 14:41 | disposition home or self-care (01) ==
LOC: ANHED 13:59
PROVIDERS: Emergency Provider Student in an Organized Health Care Education/Training Program; PCP Physician Assistant Medical
DX: D16.21 Benign neoplasm of long bones of right lower limb (principal); M25.561 Pain in right knee; N18.9 Chronic kidney disease, unspecified; I12.9 Hypertensive chronic kidney disease with stage 1 through stage 4 chronic kidney disease, or unspecified chronic kidney disease
CPT/HCPCS: 36415; 73562; 80053; 85025; 85610; 85730; 93971; 96372; 99284; A9270; J1885

== ENCOUNTER 2023-10-03 10:50 | Emergency (ER) | payer OTHER, SELFPAY ==
[2023-10-03 10:52] VITALS: BP 125/84; PULSE 66; RESP 16; TEMP 36.4; O2SAT 100
--- NOTE | 2023-10-03 11:23 | ED.GENADULT ---
HPI - General Adult General Chief complaint: Skin/Abscess/Foreign Body Stated complaint: insect bite Time Seen by Provider: 10/03/23 11:20 Source: patient Mode of arrival: ambulatory Limitations: no limitations History of Present Illness HPI narrative: PATIENT GOT STUNG BY SOMETHING 6 DAYS AGO TO THE RIGHT FOREARM AND THE RIGHT THIGH. SHE DENIES ANY FEVER, CHILLS, NAUSEA, VOMITING, ABDOMINAL PAIN OR DIAPHORESIS. PATIENT BEEN ITCHING SO BAD AT THAT 2 SPOTS SINCE. IS WARM, IS READ. Related Data Home Medications Medication Instructions Recorded Confirmed acyclovir 400 mg tablet 400 mg PO BID 04/20/22 07/11/22 famotidine 20 mg tablet 20 mg PO DAILY 04/20/22 07/11/22 Thyroid Support With Iodine 2 cap PO DAILY 06/13/22 07/11/22 lisinopril 10 1 tablet PO DAILY 06/13/22 07/11/22 mg-hydrochlorothiazide 12.5 mg tablet Allergies Allergy/AdvReac Type Severity Reaction Status Date / Time No Known Allergies Allergy Verified 09/11/23 12:37 Review of Systems Review of Systems: All systems reviewed & are unremarkable except as noted in HPI and below PMFSH Past Medical History Medical History Abdominal pain Bloating Colon cancer screening Hemorrhoids Hypertension Tears of meniscus and ACL of left knee (2019) non operative Surgical History Surgical History H/O hemorrhoidectomy EUA; external hemorrhoidectomy involving left lateral & right anterior positions 04/21/22 No pertinent past surgical history Social History Social History Smoking status: Never smoker Alcohol intake: never Substance use: never Substance use type: does not use Lack of Transportation: No Lack of Food: Never True Current Housing: I Have Housing Concerned About Future Housing: No Difficulty Paying Gas/Electric Bills: No Difficulty Paying for Meds: No Currently Unemployed: No Education: High School Diploma/GED Difficulty w/ Childcare or Family Care: No Living arrangements: with family Gender identity (if verbalized by the patient): Female Spiritual care concerns: No Exam Narrative: GENERAL APPEARANCE: WELL-DEVELOPED, WELL-NOURISHED SKIN: NORMAL COLOR, 3 X 4 CM ERYTHEMATOUS SKIN AT THE RIGHT FOREARM, 5 X 10 CM ERYTHEMATOUS SPOT ON THE RIGHT THIGH ANTERIORLY. WARM, TENDER TO TOUCH, SLIGHTLY SWELLING. NO DISCHARGE HEAD: NORMOCEPHALIC, NONTRAUMATIC EYES: CLEAR CONJUNCTIVA ENT: OROPHARYNX NORMAL, EARS NORMAL, NOSE NORMAL NECK: SUPPLE, NONTENDER CHEST AND RESPIRATORY: AIRWAY PATENT, NO RESPIRATORY DISTRESS, NO ACCESSORY MUSCLE USE HEART: REGULAR RATE/RHYTHM ABDOMEN: SOFT, NONTENDER, NO ORGANOMEGALY, QUIET BOWEL SOUNDS VASCULAR: NORMAL PERIPHERAL PULSES, NORMAL CAPILLARY REFILL. MUSCULOSKELETAL: NORMAL RANGE OF MOTION, NONTENDER BACK NEUROLOGIC: ALERT AND ORIENTED ?3, OPERATIONS MANAGER ASSISTANT IS NORMAL TESTED, NO GROSS MOTOR DEFICIT Course Vital Signs Vital signs: Vital Signs Temperature 36.4 C 10/03/23 10:52 Pulse Rate 66 10/03/23 10:52 Respiratory Rate 16 10/03/23 10:52 Blood Pressure 125/84 10/03/23 10:52 Pulse Oximetry 100 10/03/23 10:52 Oxygen Delivery Room Air 10/03/23 10:52 Temperature 36.4 C 10/03/23 10:52 Pulse Rate 66 10/03/23 10:52 Respiratory Rate 16 10/03/23 10:52 Blood Pressure 125/84 10/03/23 10:52 Pulse Oximetry 100 10/03/23 10:52 Oxygen Delivery Room Air 10/03/23 10:52 Medical Decision Making MDM Narrative Medical decision making narrative: INSECT BITE WITH LOCALIZED ALLERGIC REACTION AND OR INFECTION IS MY CONCERN
[2023-10-03] MEDS: predniSONE 20 MG TABLET 60 MG PO (12:19)
[2023-10-03 12:38] VITALS: BP 124/69; PULSE 68; RESP 16; TEMP 36.6; O2SAT 98
== END 2023-10-03 12:51 | disposition home or self-care (01) ==
PROVIDERS: Emergency Provider Emergency Medicine; PCP Physician Assistant Medical
DX: S50.861A Insect bite (nonvenomous) of right forearm, initial encounter (principal); S70.361A Insect bite (nonvenomous), right thigh, initial encounter; I10 Essential (primary) hypertension; Z79.899 Other long term (current) drug therapy; W57.XXXA Bitten or stung by nonvenomous insect and other nonvenomous arthropods, initial encounter
CPT/HCPCS: 99283; J7512

== ENCOUNTER 2024-01-01 11:15 | Outpatient (RCR) | payer OTHER, SELFPAY ==
--- NOTE | 2023-12-01 10:28 | OPREHPOC ---
Outpatient Therapy Plan of Care This is a Multidisciplinary Plan of Care that may contain components documented by all disciplines (PT, OT, and ST.) PT Problem 1 PT Problem #1 Knowledge Deficit PT Goal 1 Goal / Goal Update [place] with HEP PT Problem 2 PT Problem #2 Pain PT Goal 1 Goal / Goal Update Consistently report 0/10 pain with walking activity for 2 consecutive weeks Target Visit 4 PT Goal 2 Goal / Goal Update Improve kymberly hip abduction strength to 4/5 to improve lateral stability Target Visit 6 PT Problem 3 PT Problem #3 Impaired Flexibility PT Goal 1 Goal / Goal Update Demonstrate no restriction of kymberly piriformis for improved mobility tracking Target Visit 8
--- NOTE | 2023-12-01 10:29 | PTOPEVAL1 ---
Assessment and note entered by Alvarado Hauser, PT Evaluation Information Assessment Status Evaluation Diagnosis Chondromalacia Right knee ICD-10 Condition Codes (PT) M25.561 Onset August 2023 Subjective Information Reports that knee pain started after doing some kneeling. Pain is all localized to the knee but has had some hip pain prior. She does have some arthritis and osteochondroma of the medial knee. No rhyme or reason to when pain is increased. She has a torn meniscus and ACL on the left knee that was never repaired. Reported Pain Level Pain Score 0: Self Report Assessment PT Clinical Summary Patient presents with signs and symptoms consistent with patellar chondromalacia. Demonstrate mm imbalance with medial tightness and lateral weakness of hips. Will benefit from skilled therapy to address these deficits from family medicine physician correction of kinesiological deficits. Plan of Care Interventions Electrical Stimulation,Gait Training,Hot Pack/Cold Pack,Manual Therapy,Neuro Re-education, Therapeutic Activities,Therapeutic Exercise PT Services Indicated Yes Treatment Frequency and 2x/week for 8 visits Duration These treatments will address the objective and functional deficits as defined above. The patient will be advanced safely and appropriately in order for the patient to progress towards his/her prior level of function. Additional exercises will be introduced and as well as a comprehensive home exercise program upon discharge, if needed, ?to ensure carryover of functional gains achieved in the clinic. This treatment plan has been reviewed and agreement upon by the patient.
--- NOTE | 2023-12-23 11:00 | PCPTNOTE ---
No call no show, reason unknown. AKBrian
--- NOTE | 2023-12-25 11:54 | PCPTNOTE ---
No call no show. Called pt and she forgot she still wants to attend and will be here as scheduled next appt. Reviewed policy of NS/CX with pt. AKS
--- NOTE | 2024-01-06 11:21 | PCPTNOTE ---
Called and canceled, reason unknown. AKS
--- NOTE | 2024-01-08 11:46 | PCPTNOTE ---
pt called and canceled today's reeval appt due to being out of town.
--- NOTE | 2024-01-23 14:30 | PTOPDC ---
Assessment and note entered by Esther Mckenzie, PT Discharge Report Assessment Status Discharge - Pt Not Present Diagnosis Chondromalacia Right knee ICD-10 Condition Codes (PT) M25.561 Onset August 2023 Subjective Information pt was not seen this date. Assessment PT Clinical Summary Verito has received 4 PT sessions, from Nov 30 to Dec 31. She did not show for 2 and called/ canceled 2 appointments. Discharge PT due to not attending. The goals were not assessed. Plan of Care PT Services Indicated No
== END 2024-01-23 16:37 | disposition home or self-care (01) ==
LOC: ANHPT 11:15
PROVIDERS: PCP Physician Assistant Medical; Visit Provider Orthopaedic Surgery
DX: M94.261 Chondromalacia, right knee (principal)
CPT/HCPCS: 97014; 97110; 97140; 97161; G0283

== ENCOUNTER 2024-03-08 17:49 | Emergency (ER) | payer OTHER, SELFPAY ==
[2024-03-08 18:44] VITALS: BP 115/74; PULSE 66; RESP 18; TEMP 36.4; O2SAT 100
--- NOTE | 2024-03-08 20:14 | ED_ITS ---
HPI - Skin/Abscess/Foreign Bdy General Chief complaint: Skin/Abscess/Foreign Body Stated complaint: RASH,PRURITIS NO KNOWN CAUSE. Time Seen by Provider: 03/08/24 19:40 Source: patient Mode of arrival: ambulatory Limitations: no limitations History of Present Illness HPI narrative: This is a 53-year-old female that presents to the emergency department for itchy rash. Reports this has been ongoing intermittently over the last several months. No known new exposures. Reports she had difficulty sleeping last night due to itching. She has been taking cetirizine and Pepcid. She did recently run out of her Pepcid. Denies difficulty swallowing or trouble breathing. Related Data Home Medications ?Medication ?Instructions ?Recorded ?Confirmed ?Last Taken ?Type acyclovir 400 mg tablet 400 mg PO BID 04/20/22 10/16/23 Unknown History famotidine 20 mg tablet 20 mg PO DAILY 04/20/22 10/16/23 Unknown History Thyroid Support With Iodine 2 cap PO DAILY 06/13/22 10/16/23 Unknown History lisinopril 10 1 tablet PO DAILY 06/13/22 10/16/23 Unknown History mg-hydrochlorothiazide 12.5 mg tablet Allergies Allergy/AdvReac Type Severity Reaction Status Date / Time No Known Allergies Allergy Verified 03/08/24 17:50 Review of Systems Review of Systems: CONSTITUTIONAL: Denies fever SKIN: Reports rash and itching. All systems reviewed & are unremarkable except as noted in HPI and below PMFSH Past Medical History Medical History Abdominal pain Bloating Colon cancer screening Hemorrhoids Hypertension Tears of meniscus and ACL of left knee (2019) non operative Surgical History Surgical History H/O hemorrhoidectomy EUA; external hemorrhoidectomy involving left lateral & right anterior positions 04/21/22 No pertinent past surgical history Family History Family History (Updated 10/16/23 @ 09:45 by SABRINA Sanches) Father Parkinson disease Hypertension Mother Hypertension Arthritis Sibling Scoliosis Social History Social History (Updated 10/16/23 @ 09:46 by SABRINA Sanches) Smoking status: Never smoker Second hand tobacco smoke exposure: Yes Alcohol intake: current Substance use: never Substance use type: does not use Do You Feel Safe in your Home?: Yes Lack of Transportation: No Lack of Food: Never True Current Housing: I Have Housing Concerned About Future Housing: No Difficulty Paying Gas/Electric Bills: No Difficulty Paying for Meds: No Currently Unemployed: No Education: High School Diploma/GED Difficulty w/ Childcare or Family Care: No Living arrangements: with family Occupation/Education: unemployed Gender identity (if verbalized by the patient): Female Spiritual care concerns: No Exam Narrative: GENERAL: Well-appearing, well-nourished, and in no acute distress. HEAD: Normocephalic, atraumatic. EYES: EOMI. ENT: Nares clear, no rhinorrhea or epistaxis. Mucous membranes moist. Oropharynx without tonsillar hypertrophy exudate or other lesions. CHEST: Clear to auscultation. No respiratory distress. No wheezes rales or rhonchi HEART: Regular rate and rhythm. No murmur heard. Normal peripheral pulses. EXTREMITIES: Normal range of motion. No edema. SKIN: Warm, dry. Maculopapular rash present on the arms, chest, back, groin NEURO: No focal deficits. Alert and oriented x3. PSYCH: Normal mood and affect Course Course Emergency Course: patient agrees with plan of care Vital Signs Vital signs: Vital Signs Temperature 97.6 F 03/08/24 18:44 Pulse Rate 66 03/08/24 18:44 Respiratory Rate 18 03/08/24 18:44 Blood Pressure 115/74 03/08/24 18:44 Pulse Oximetry 100 03/08/24 18:44 Oxygen Delivery Room Air 03/08/24 18:44 Temperature 97.6 F 03/08/24 18:44 Pulse Rate 66 03/08/24 18:44 Respiratory Rate 18 03/08/24 18:44 Blood Pressure 115/74 03/08/24 18:44 Pulse Oximetry 100 03/08/24 18:44 Oxygen Delivery Room Air 03/08/24 18:44 MDM - Skin/Abscess/Foreign Bdy MDM Narrative Medical decision making narrative: patient presents to the emergency department for she rash. Ongoing intermittently over the last several months. No swelling of the mouth or throat. Patient will be started on steroid taper and instructed on continued use of antihistamines. She was encouraged to follow-up with her cook vegetable. She was given warnings to return to the ER Differential Diagnosis Differential diagnosis: Likely urticaria, allergic reaction to drug, eczema and contact dermatitis Critical Care Time Critical Care Time Critical Care Time: No Discharge Plan Discharge Clinical Impression: Rash and nonspecific skin eruption Patient Disposition: Home, Self-Care Condition: Stable Instructions: Acute Rash (ED) Additional Instructions: Return to the emergency department if you experience fever, difficulty swallowing, trouble breathing, redness and swelling of your wounds, abnormal drainage from your wounds, or any other symptoms that are concerning to you Take a Pepcid and Zyrtec daily. Take steroid taper as prescribed. Benadryl as needed for severe itching Follow-up with your cook vegetable Patient Language: Hungarian Prescriptions: New prednisone 10 mg tablet 10 mg PO DAILY Qty: 45 0RF Rx Instructions: 5 tabs daily for 3 days, 4 tabs daily for 3 days, 3 tabs daily for 3 days, 2 tabs daily for 3 days, 1 tab daily for 3 days No Action prednisone 10 mg tablet 10 mg PO BID Qty: 20 0RF cephalexin 500 mg capsule 500 mg PO Q6H 7 Days Qty: 28 0RF triamcinolone acetonide 0.5 % cream 1 applic topical BID Qty: 15 0RF acyclovir 400 mg tablet 400 mg PO BID famotidine 20 mg tablet 20 mg PO DAILY lisinopril-hydrochlorothiazide 10-12.5 mg tablet 1 tablet PO DAILY Thyroid Support With Iodine 2 cap PO DAILY ibuprofen 600 mg tablet 600 mg PO TID PRN (Reason: pain) Qty: 20 0RF acetaminophen 500 mg capsule 1,000 mg PO Q6H PRN (Reason: pain) Qty: 30 0RF Follow-up/Referrals: Nima,ROMARIO Miles [Primary Care Provider] -
[2024-03-08] MEDS: dexAMETHasone SOD PHOS INJ 10 MG/ML 1 ML VIAL IM (20:20)
[2024-03-08] MEDS: FAMOTIDINE 20 MG TABLET PO (20:20)
[2024-03-08] MEDS: LORATADINE 10 MG TABLET PO (20:20)
[2024-03-08 21:34] VITALS: BP 118/68; PULSE 71; RESP 16; O2SAT 100
== END 2024-03-08 21:35 | disposition home or self-care (01) ==
PROVIDERS: Emergency Provider Physician Assistant; PCP Physician Assistant Medical
DX: R21 Rash and other nonspecific skin eruption (principal); I10 Essential (primary) hypertension; Z77.22 Contact with and (suspected) exposure to environmental tobacco smoke (acute) (chronic)
CPT/HCPCS: 96372; 99283; A9270; J1100

== ENCOUNTER 2024-05-09 21:29 | Emergency (ER) | payer OTHER, SELFPAY ==
[2024-05-09 21:31] VITALS: BP 139/92; PULSE 65; RESP 20; TEMP 36.4; O2SAT 100
--- OUTSIDE RECORDS SUMMARY | 2024-05-09 21:32 | XMS_ITS | Referral Summary ---
Author Organization [facility] Address [address] [place] [address] Care Team Providers Care Dinkey Press Operator Name Role Phone Bebe Yarbrough Primary Care Provider [phone] Encounters Date Type Department Care Team Description 04/22/2024 5:21 PM STENCILING MACHINE TENDER - 04/22/2024 11:59 PM STENCILING MACHINE TENDER Hospital Encounter [address] [address] Well woman exam Discharge Disposition: Discharge to home or self care 04/22/2024 2:45 PM STENCILING MACHINE TENDER Office Visit [facility] [address] [facility] 3rd Floor [address] [place] [address] Yadira Hanson MD Well woman exam (Primary Dx); Stage 3 chronic kidney disease, unspecified whether stage 3a or 3b CKD (HCC); Multiple sclerosis (HCC) 04/15/[address] [facility] [place] [address] Hue Fontanez Test Results (Left breast and left axillary lymph node biopsy 04/14/24) 04/14/2024 2:54 PM STENCILING MACHINE TENDER - 04/14/2024 11:59 PM STENCILING MACHINE TENDER Hospital Encounter [facility]) [address] [place] [address] Abnormal mammogram Discharge Disposition: Discharge to home or self care 04/14/2024 2:03 PM STENCILING MACHINE TENDER - 04/14/2024 11:59 PM STENCILING MACHINE TENDER Hospital Encounter [facility] ([facility]) [address] [place] [address] Abnormal mammogram Discharge Disposition: Discharge to home or self care 04/07/2024 Telephone [facility] ([facility]) [address] [place] [id number] Aisha Seo RN 04/06/2024 Telephone [facility] ([facility]) [address] [place] [address] Macy Handy, ALCIRA 04/01/2024 Telephone [facility] ([facility]) [address] [place] [address] Macy Handy RN 03/31/2024 6:19 PM STENCILING MACHINE TENDER - 03/31/2024 11:59 PM STENCILING MACHINE TENDER Hospital Encounter [facility] ([facility]) [address] [place] [address] Discharge Disposition: Discharge to home or self care 02/25/2024 12:05 AM STENCILING MACHINE TENDER - 02/25/2024 11:59 PM [facility] Hospital Encounter [facility] ([facility]) [address] [place] [address] Discharge Disposition: Discharge to home or self care 02/25/2024 - 02/25/2024 11:59 PM [facility] Hospital Encounter [facility] ([facility]) [address] [place] [address] Discharge Disposition: Discharge to home or self care from Last 3 Months Allergies No known active allergies Medications acyclovir (ZOVIRAX) 400 mg tablet 10/27/19 20 Active lisinopril-hyd roCHLOROthiazi de (ZESTORETIC) 20-12.5 mg per tablet 08/12/19 21 Active omeprazole (PriLOSEC) 20 mg capsule TAKE 1 CAPSULE BY MOUTH ONCE DAILY IN THE MORNING 12/11/19 23 Active docusate sodium (COLACE) 100 mg capsule 12/17/19 Active fexofenadine (JOHN) 180 mg tablet TAKE 1 TABLET BY MOUTH ONCE DAILY AFTER A MEAL Active fluticasone propionate (FLONASE) 50 mcg/actuation nasal spray USE 1 SPRAY(S) IN EACH NOSTRIL ONCE DAILY Active polyethylene glycol (MIRALAX) 17 gram/dose bulk powder 11/13/19 Active tretinoin (RETIN-A) 0.05 % cream Apply pea-sized amount to ENTIRE face at NIGHT. 30 days supply. 12/21/19 Active triamcinolone (KENALOG) 0.1 % ointment Apply to affected areas over trunk & extremities up to twice daily as needed. Avoid on face/armpits/gr oin. Limit use to up to 2 weeks per month. 30 day supply. 12/21/19 Active famotidine (PEPCID) 20 mg tablet TAKE 1 TABLET BY MOUTH TWICE DAILY DIRECTED 12/24/19 Active clindamycin (CLEOCIN T) 1 % lotion APPLY LOTION EXTERNALLY ONCE DAILY IN THE MORNING ON FACE AND NECK 12/21/19 Active senna (SENOKOT) 8.6 mg tabletIndicati ons:constipati on Take 1 tablet by mouth nightly as needed for constipation for up to 10 doses 10 tablet 09/20/19 22 025 Discontinued ondansetron (ZOFRAN) 8 mg tabletIndicati ons:Prevention of Post-Operative Nausea and Vomiting Take 1 tablet (8 mg total) by mouth every 12 (twelve) hours as needed for nausea or vomiting for up to 10 doses 10 tablet 09/20/19 22 025 Discontinued metoclopramide (REGLAN) 5 mg tablet Take 1 tablet (5 mg total) by mouth 2 (two) times a day as needed (nausea) for up to 10 doses 10 tablet 09/20/19 22 025 Discontinued naproxen (NAPROSYN) 500 mg tabletIndicati ons:Anti-infla mmatory,Pain Take 1 tablet (500 mg total) by mouth 2 (two) times a day with meals for 10 days Take 4 days of Ketorolac and then when this is complete start Naproxen for another 10 days. Do not take them at the same time. 20 tablet 09/24/19 22 025 Discontinued Active Problems Problem Noted Date Diagnosed Date Stage 3 chronic kidney disea se, unspecified whether stage 3a or 3b CKD 04/26/2024 Uterine leiomyoma 05/27/2021 Overview (06/09/2021): - Initially seen on 05/25 with desire for treatment for AUB-L. - Exam w/ 12cm mobile uterus - Endometrial biopsy benign - Pelvic US 06/08: 6cm right lateral anterior fibroid (intramural), 5cm left lateral fibroid (intramural), 4cm left lateral posterior fibroid (subserous), and a 3cm fundal intramural fibroid. - S/p counseling about options, desires to pursue [facility] - Ordered for MRI pelvis, IR consult. Patient to follow-up 2-4 wks after procedure. Retinal migraine 05/22/2020 Paresthesias 05/22/2020 Transient vision disturbance 02/14/2020 Hyperreflexia 02/14/2020 Dyslipidemia 10/02/2016 Hypertension 10/02/2016 Multiple sclerosis 10/02/2016 Immunizations Immunization Administration Dates Next Due Tdap 06/03/2019 Tetanus Toxoid, Unspecified 06/03/2019 Social History Tobacco Use Types Packs/Day Years Used Date Smoking Tobacco: Never Smokeless Tobacco: Never Alcohol Use Standard Drinks/Week Comments Yes 0 (1 standard drink = 0.6 oz pur e alcohol) rare AUDIT-C Answer Date Recorded Q1: How often do you have a drink containing alc ohol? Never 08/14/2020 Average Number of Drinks Not on file 021 Frequency of Binge Drinking Not on file 07/23 Hunger Vital Sign Answer Date Recorded Within the past 12 months, y ou worried that your food would run out before you got the money to buy more. Never true 01/15/20 23 Within the past 12 months, t he food you bought just didn't last and you didn't have money to get more. Never true 01/14/2023 Comments No Sex and Gender Information Value Date Recorded Sex Assigned at Not on file Legal Sex Female 2:02 PM CDT Gender Identity Not on file Sexual Orientation Not on file Last Filed Vital Signs Vital Sign Reading Time Taken Comments Blood Pressure 122/79 04/22/2024 2:30 PM STENCILING MACHINE TENDER Pulse 88 04/22/2024 2:30 PM STENCILING MACHINE TENDER Temperature 36.7 C (98 F) 01/14/2023 1:15 PM CDT Respiratory Rate 18 01/14/2023 1:15 PM CDT Oxygen Saturation 100% 04/22/2024 2:30 PM STENCILING MACHINE TENDER Inhaled Oxygen Concentration - - Weight 77.8 kg (171 lb 9.6 oz) 04/22/2024 2:30 P M STENCILING MACHINE TENDER Height 165.1 cm (5' 5 ) 01/14/2023 1:15 PM CDT Body Mass Index 28.56 01/14/2023 1:15 PM CDT Plan of Treatment Not on file Medical Devices Implanted Type Area Heat Sealing Machine Operator Device Identifier Shelf Expiration Date Model / Serial / Lot [employer] Embosphere Saline Syringe Compressible Nonaggregate Highly Target S620gh - [id number] Implanted:Qty: 2 on 09/19/2021 at [facility] [employer] 12/18/2023 S620GH / / [id number]. [employer] Embosphere Saline Syringe Compressible Nonaggregate Highly Target S620gh - [id number] Implanted:Qty: 1 on 09/19/2021 at [facility] [employer] 05/21/2024 S620GH / / [id number] [employer] Embosphere Saline Syringe Compressible Nonaggregate Highly Target S620gh - [id number] Implanted:Qty: 2 on 09/19/2021 at [facility] [employer] 12/18/2023 S620GH / / [id number]. [employer] Embosphere Saline Syringe Compressible Nonaggregate Highly Target S620gh - [id number] Implanted:Qty: 1 on 09/19/2021 at [facility] [employer] 05/21/2024 S620GH / / [id number] Angio-Seal Vip 6fr Closere Device [id number] - [id number] Implanted:Qty: 1 on 09/19/2021 at [facility] [employer] 06/21/2022 [id number] / / [id number] [employer] Marker Image Hydromark Plus T5 Titanium 15ga Radiological Implant Sterile 4009-05-08-T5 - [id number] Implanted:Qty: 1 on 04/14/2024 by Bryce Hale MD at [facility] Left: Breast Stat [id number] 03/11/2025 4010-02-1 5-T5 / / [id number] D Bard Peripheral Vascular Marker Breast Ring Shape Radiopaque Nitinol Ultracor Twirl 09iis80at Uctw17 - [id number] Implanted:Qty: 1 on 04/14/2024 by Bryce Hale MD at [facility] Left: Axilla Bard Peripheral Vascular [id number] / / Procedures Procedure Name Priority Date/Time Associated Diagnosis Comments PAP AND HIGH RISK HPV, REFLEX TO GENOTYPING Routine 04/22/2024 2:48 PM STENCILING MACHINE TENDER Well woman exam HIGH RISK HPV DNA DETECTION WITH GENOTYPING Routine 04/22/2024 2:48 PM STENCILING MACHINE TENDER CARLOS POST CLIP PLACEMENT LEFT Schedule Routine, Read Routine (OP Routine) 04/14/2024 3:23 PM STENCILING MACHINE TENDER Abnormal mammogram US GUIDED BREAST BIOPSY LEFT Schedule Routine, Read Routine (OP Routine) 04/14/2024 3:03 PM STENCILING MACHINE TENDER Abnormal mammogram SURGICAL PATHOLOGY Routine 04/14/2024 2: 42 PM STENCILING MACHINE TENDER Abnormal mammogram BREAST IMAGING MG DIAGNOSTIC OUTSIDE CONSULT Routine 03/31/2024 6:19 PM STENCILING MACHINE TENDER BREAST IMAGING US OUTSIDE REFERENCE Schedule Routine, Read Routine (OP Routine) 02/25/2024 12:05 AM STENCILING MACHINE TENDER BREAST IMAGING MG DIAGNOSTIC OUTSIDE REFERENCE Schedule Routine, Read Routine (OP Routine) 02/25/2024 12:00 AM STENCILING MACHINE TENDER from Last 3 Months Results * High Risk HPV DNA Detection with Genotyping (Molecular component) (04/22/2024 2:48 PM STENCILING MACHINE TENDER) Pathologist [facility] HPV HR 16 Not Detected Not Detected [facility] HPV HR 18 Not Detected Not Detected [facility] HPV HR Non 16/18 Not Detected Not Detected [facility] Comment: Interpretive Data Nucleic acid amplification for detection of high-risk Human Papilloma virus (HPV) is performed by the Rochelle Fei 6800 HPV test. This assay specifically detects HPV-16 and HPV-18 genotypes. The following HPV genotypes are detected as high-risk HPV: HPV-31, 33, 35, ,39, 45, 51, 52, 56, 58, 59, 66, and 68. This assay has been approved by the [place] Food and Drug Administration for detection of HPV in cervical specimens collected by a physician using an endocervical brush/spatula or cervical broom and placed in the ThinPrep Pap Test PreservCyt collection containers. The performance characteristics of this test have been verified by the [facility] Molecular Infectious Disease laboratory. Correlate with separately reported cytology results, as applicable. Interpretive data last revised 22 Endocervical 04/22/2024 2:48 PM STENCILING MACHINE TENDER 04/26/2024 2:59 PM STENCILING MACHINE TENDER Yadira Hanson MD LAB BODY FLUIDS AND STOOLS ORDERABLES Final Result [facility] Department [place] [address] [facility] * Pap and High Risk HPV and Genotyping (Cytology Component) (04/22/2024 2:48 PM STENCILING MACHINE TENDER) Thin prep (Pap test) 04/22/2024 2:48 PM STENCILING MACHINE TENDER 04/22/2024 5:22 PM STENCILING MACHINE TENDER Narrative PATHOLOGY [facility] - 04/30/2024 8:08 AM STENCILING MACHINE TENDER EPIC results best viewed via link to PDF [facility] [place] [address] Note to Patients: This report may contain a detailed description of human tissue sent by a health care provider to the laboratory for pathologic evaluation. The content of this report is essential for diagnosis and may provide important critical findings. This information may be unfamiliar to patients to review without a medical professional present. It is advised that the patient review this report in the presence of a health care provider who can answer questions and explain the details. CYTOPATHOLOGY REPORT FINAL Patient Name: ALEXANDRU CHOU Gender: F : 1970 (Age: 53) Address: [address] [place] [address] [place] [address] Hospital #: [id number] Service: SHRIMP PEELING MACHINE OPERATOR Location: Patient Type: [facility] SPECIMEN Taken: 04/22/2024 Received: 04/22/2024 Accessioned: 04/26/2024 Reported: 04/30/2024 Physician(s): Yadira Hanson M.D. FINAL INTERPRETATION SOURCE OF SPECIMEN Liquid based Thin Prep pap with HPV: STATEMENT OF ADEQUACY - Satisfactory for evaluation - No endocervical/transformation zone sample present in a post menopausal patient GENERAL CATEGORIZATION: - Negative for squamous intraepithelial lesion or malignancy Comments (Normal-Negative for High Risk HPV) HPV HR 16- Not detected HPV HR 18-Not detected HPV HR non 16/18- Not detected Interpretive Data Nucleic acid amplification for detection of high-risk Human Papilloma virus (HPV) is performed by the Rochelle Fei 6800 HPV test. This assay specifically detects HPV- 16 and HPV-18 genotypes. The following HPV genotypes are detected as high-risk HPV: HPV-31, 33, 35, 39, 45, 51, 52, 56, 58, 59, 66, and 68. This assay has been approved by the [place] Food and Drug Administration for detection of HPV in cervical specimens collected by a physician using an endocervical brush/spatula or cervical broom and placed in the ThinPrep Pap Test PreservCyt collection containers. The performance characteristics of this test have been verified by the [facility] Molecular Infectious Disease laboratory. Correlate with reported cytology results, as applicable. Interpretive data last revised 22 [facility]/04/30/2024 08:08 DAVID Luna(ASCP) Report Electronically Reviewed and Signed Out By DAVID Luna(ASC) 04/30/2024 08:08:27 Cervicovaginal Cytology (Pap Test) Disclaimer: The Pap test is a screening test used to detect cervical cancer and its precursors; it is not a diagnostic procedure. False negative and false positive results do occur. Pap test results should be interpreted in the context of pertinent clinical information and biopsy results as indicated. [facility] Clinical Laboratory Improvement Amendments (CLIA) mandate that cytologic and histologic results be correlated for laboratory quality tester & improvement standards. FOR ALL HIGH-GRADE CASES we request submission of follow-up histological material and/or reports that have not been previously provided so that we may fulfill said required standards. Gross Description A. Liquid based Thin Prep pap with HPV: Cervical/vaginal - Screening ThinPrep Clinical Diagnosis and History Last Menstrual Period: unknown The patient is a 53 year old female with cervical cancer screen. Report Images and scanned documents, if included only viewable in PDF version The performance characteristics of some immunohistochemical stains, in-situ hybridization and fluorescence in-situ hybridization tests and immunophenotyping by flow cytometry cited in this report (if any) were determined by the Surgical Pathology Department at [facility] as part of an ongoing quality assurance representative program and in compliance with federally mandated regulations drawn from the Clinical Laboratory Improvement Act of 1988 (CLIA '88). Some of these tests rely on the use of analyte specific reagents and are subject to specific labeling requirements by the [place] Food and Drug Administration. Such diagnostic tests may only be performed in a facility that is certified by the Department of Health and Human Services as a high complexity laboratory under CLIA '88. The FDA has determined that such clearance or approval is not necessary. This test is used for clinical purposes. It should not be regarded as investigational or for research. Nevertheless, federal rules concerning the medical use of analyte specific reagents require that the following disclaimer be attached to the report: This test was developed and its performance characteristics determined by the Surgical Pathology Department of [facility]. It has not been cleared or approved by the U. S. Food and Drug Administration. us Yadira Hanson MD LAB CYTOLOGY ORDERABLES Fi nal Result PATHOLOGY [facility] 3rd Floor [place], [place] [phone] * Carlos Post Clip Placement Left (04/14/2024 3:23 PM STENCILING MACHINE TENDER) Anatomical Region Laterality Modality Breast Left Mammography 04/14/2024 3:23 PM STENCILING MACHINE TENDER Addenda Addendum by Alem Grace MD on 04/15/2024 3:16 PM STENCILING MACHINE TENDER Pathology results of the left 1:30 mass shows a fibroadenoma. No atypia or malignancy. Although prebiopsy concern was high, the mixed hypoechoic and hyperechoic nature of the lesion was felt to be less concerning at time of biopsy. Pathology results are benign and concordant with imaging. Pathology results of the left axillary lymph node shows no evidence of malignancy. Pathology results are benign and concordant. Return for annual screening mammography. A [facility] breast nurse navigator will contact patient and PCP with these results and recommendation. A separate note will be placed in [facility]. Electronically signed by: Alem Grace MD Impressions 04/14/2024 3:28 PM STENCILING MACHINE TENDER 1. Successful biopsy of the LEFT breast (site A), 1:30 mass with accurate placement of dragonfly tissue marker clip. 2. Successful biopsy of LEFT axillary lymph node, with accurate placement of a twirl tissue marker clip. Pathology is pending. ASSESSMENT: Post Procedure Mammograms for Marker Placement The radiology attending physician has personally reviewed this study, and had reviewed and/or edited this written report and agrees with it. Electronically signed by: Alem Grace MD Narrative 04/14/2024 3:28 PM STENCILING MACHINE TENDER EXAMINATION: LEFT BREAST CORE BIOPSY UTILIZING SONOGRAPHIC GUIDANCE, LEFT AXILLARY LYMPH NODE CORE BIOPSY UTILIZING SONOGRAPHIC GUIDANCE, AND PLACEMENT OF TWO BIOPSY TISSUE MARKER CLIPS, AND LEFT FULL FIELD DIGITAL MAMMOGRAM WITH DIGITAL BREAST TOMOSYNTHESIS HISTORY: Abnormal breast imaging. 53-year-old female with recently discovered LEFT breast mass on screening mammogram with enlarged LEFT axillary lymph node. Ultrasound guided core needle biopsy is requested to evaluate for malignancy. COMPARISON: Outside mammogram from 02/25/2024, outside ultrasound report from 02/25/2024 BREAST PARENCHYMAL COMPOSITION: The breasts are heterogeneously dense, which may obscure small masses. PROCEDURE AND FINDINGS: The risks and potential benefits of the procedures were discussed with the patient and written informed consent was obtained. LESION/SITE A: LEFT breast lesion, 1:30 position, 11 cm from the nipple After sterile preparation of the skin, 1% lidocaine was utilized for local anesthesia. A 14G spring-loaded biopsy needle was then advanced through the skin incision to the edge of the lesion of interest at the 1:30 position, 11 cm from the nipple from a lateral approach utilizing sonographic guidance. A total of 4 tissue cores were obtained through the lesion. A Mammotome Hydromark dragonfly tissue marker clip was then placed at the biopsy site. Hemostasis was achieved. Dermabond and an ice pack were applied. The tissue cores were submitted to surgical pathology in formalin for histologic analysis. LESION/ SITE B: LEFT AXILLARY LYMPH NODE CORE BIOPSY After sterile preparation of the skin, 1% lidocaine was utilized for local anesthesia. A 14G spring-loaded biopsy needle was then advanced through the skin incision to the edge of the lesion of interest at the left axilla from a lateral approach utilizing sonographic guidance. A total of 3 tissue cores were obtained through the lymph node. A Stat Twirl tissue marker clip was then placed at the biopsy site. Hemostasis was achieved. The tissue core(s) were submitted to surgical pathology in formalin for histologic analysis. There was no evidence of significant immediate complication. The patient was given verbal as well as written post procedural instructions prior to release from the department. A two-view LEFT digital mammogram with digital breast tomosynthesis post procedure demonstrates that the tissue marker clips are in expected positionS. The attending radiologist, Dr. Alem Grace MD, was present throughout the entire procedure. Dr. Bryce Hale MD (diagnostic radiology director) also participated in this examination. Procedure Note Alem Grace MD - 04/14/2024 EXAMINATION: LEFT BREAST CORE BIOPSY UTILIZING SONOGRAPHIC GUIDANCE, LEFT AXILLARY LYMPH NODE CORE BIOPSY UTILIZING SONOGRAPHIC GUIDANCE, AND PLACEMENT OF TWO BIOPSY TISSUE MARKER CLIPS, AND LEFT FULL FIELD DIGITAL MAMMOGRAM WITH DIGITAL BREAST TOMOSYNTHESIS HISTORY: Abnormal breast imaging. 53-year-old female with recently discovered LEFT breast mass on screening mammogram with enlarged LEFT axillary lymph node. Ultrasound guided core needle biopsy is requested to evaluate for malignancy. COMPARISON: Outside mammogram from 02/25/2024, outside ultrasound report from 02/25/2024 BREAST PARENCHYMAL COMPOSITION: The breasts are heterogeneously dense, which may obscure small masses. PROCEDURE AND FINDINGS: The risks and potential benefits of the procedures were discussed with the patient and written informed consent was obtained. LESION/SITE A: LEFT breast lesion, 1:30 position, 11 cm from the nipple After sterile preparation of the skin, 1% lidocaine was utilized for local anesthesia. A 14G spring-loaded biopsy needle was then advanced through the skin incision to the edge of the lesion of interest at the 1:30 position, 11 cm from the nipple from a lateral approach utilizing sonographic guidance. A total of 4 tissue cores were obtained through the lesion. A Mammotome Hydromark dragonfly tissue marker clip was then placed at the biopsy site. Hemostasis was achieved. Dermabond and an ice pack were applied. The tissue cores were submitted to surgical pathology in formalin for histologic analysis. LESION/ SITE B: LEFT AXILLARY LYMPH NODE CORE BIOPSY After sterile preparation of the skin, 1% lidocaine was utilized for local anesthesia. A 14G spring-loaded biopsy needle was then advanced through the skin incision to the edge of the lesion of interest at the left axilla from a lateral approach utilizing sonographic guidance. A total of 3 tissue cores were obtained through the lymph node. A Bard Twirl tissue marker clip was then placed at the biopsy site. Hemostasis was achieved. The tissue core(s) were submitted to surgical pathology in formalin for histologic analysis. There was no evidence of significant immediate complication. The patient was given verbal as well as written post procedural instructions prior to release from the department. A two-view LEFT digital mammogram with digital breast tomosynthesis post procedure demonstrates that the tissue marker clips are in expected positionS. The attending radiologist, Dr. Alem Grace MD, was present throughout the entire procedure. Dr. Bryce Hale MD (diagnostic radiology director) also participated in this examination. IMPRESSION: 1. Successful biopsy of the LEFT breast (site A), 1:30 mass with accurate placement of dragonfly tissue marker clip. 2. Successful biopsy of LEFT axillary lymph node, with accurate placement of a twirl tissue marker clip. Pathology is pending. ASSESSMENT: Post Procedure Mammograms for Marker Placement The radiology attending physician has personally reviewed this study, and had reviewed and/or edited this written report and agrees with it. Electronically signed by: Alem Grace MD Humberto DOSS IMG MAMMO PROCEDURES Edite d Result - Final * US Guided Breast Biopsy Left (04/14/2024 3:03 PM STENCILING MACHINE TENDER) Anatomical Region Laterality Modality Breast Left Mammography 04/14/2024 3:23 PM STENCILING MACHINE TENDER Addenda Addendum by Alem Grace MD on 04/15/2024 3:16 PM STENCILING MACHINE TENDER Pathology results of the left 1:30 mass shows a fibroadenoma. No atypia or malignancy. Although prebiopsy concern was high, the mixed hypoechoic and hyperechoic nature of the lesion was felt to be less concerning at time of biopsy. Pathology results are benign and concordant with imaging. Pathology results of the left axillary lymph node shows no evidence of malignancy. Pathology results are benign and concordant. Return for annual screening mammography. A [facility] breast nurse navigator will contact patient and PCP with these results and recommendation. A separate note will be placed in [facility]. Electronically signed by: Alem Grace MD Impressions 04/14/2024 3:28 PM STENCILING MACHINE TENDER 1. Successful biopsy of the LEFT breast (site A), 1:30 mass with accurate placement of dragonfly tissue marker clip. 2. Successful biopsy of LEFT axillary lymph node, with accurate placement of a twirl tissue marker clip. Pathology is pending. ASSESSMENT: Post Procedure Mammograms for Marker Placement The radiology attending physician has personally reviewed this study, and had reviewed and/or edited this written report and agrees with it. Electronically signed by: Alem Grace MD Narrative 04/14/2024 3:28 PM STENCILING MACHINE TENDER EXAMINATION: LEFT BREAST CORE BIOPSY UTILIZING SONOGRAPHIC GUIDANCE, LEFT AXILLARY LYMPH NODE CORE BIOPSY UTILIZING SONOGRAPHIC GUIDANCE, AND PLACEMENT OF TWO BIOPSY TISSUE MARKER CLIPS, AND LEFT FULL FIELD DIGITAL MAMMOGRAM WITH DIGITAL BREAST TOMOSYNTHESIS HISTORY: Abnormal breast imaging. 53-year-old female with recently discovered LEFT breast mass on screening mammogram with enlarged LEFT axillary lymph node. Ultrasound guided core needle biopsy is requested to evaluate for malignancy. COMPARISON: Outside mammogram from 02/25/2024, outside ultrasound report from 02/25/2024 BREAST PARENCHYMAL COMPOSITION: The breasts are heterogeneously dense, which may obscure small masses. PROCEDURE AND FINDINGS: The risks and potential benefits of the procedures were discussed with the patient and written informed consent was obtained. LESION/SITE A: LEFT breast lesion, 1:30 position, 11 cm from the nipple After sterile preparation of the skin, 1% lidocaine was utilized for local anesthesia. A 14G spring-loaded biopsy needle was then advanced through the skin incision to the edge of the lesion of interest at the 1:30 position, 11 cm from the nipple from a lateral approach utilizing sonographic guidance. A total of 4 tissue cores were obtained through the lesion. A Mammotome [employer] dragonfly tissue marker clip was then placed at the biopsy site. Hemostasis was achieved. Dermabond and an ice pack were applied. The tissue cores were submitted to surgical pathology in formalin for histologic analysis. LESION/ SITE B: LEFT AXILLARY LYMPH NODE CORE BIOPSY After sterile preparation of the skin, 1% lidocaine was utilized for local anesthesia. A 14G spring-loaded biopsy needle was then advanced through the skin incision to the edge of the lesion of interest at the left axilla from a lateral approach utilizing sonographic guidance. A total of 3 tissue cores were obtained through the lymph node. A Bard Twirl tissue marker clip was then placed at the biopsy site. Hemostasis was achieved. The tissue core(s) were submitted to surgical pathology in formalin for histologic analysis. There was no evidence of significant immediate complication. The patient was given verbal as well as written post procedural instructions prior to release from the department. A two-view LEFT digital mammogram with digital breast tomosynthesis post procedure demonstrates that the tissue marker clips are in expected positionS. The attending radiologist, Dr. Alem Grace MD, was present throughout the entire procedure. Dr. Bryce Hale MD (diagnostic radiology director) also participated in this examination. Procedure Note Alem Grace MD - 04/14/2024 EXAMINATION: LEFT BREAST CORE BIOPSY UTILIZING SONOGRAPHIC GUIDANCE, LEFT AXILLARY LYMPH NODE CORE BIOPSY UTILIZING SONOGRAPHIC GUIDANCE, AND PLACEMENT OF TWO BIOPSY TISSUE MARKER CLIPS, AND LEFT FULL FIELD DIGITAL MAMMOGRAM WITH DIGITAL BREAST TOMOSYNTHESIS HISTORY: Abnormal breast imaging. 53-year-old female with recently discovered LEFT breast mass on screening mammogram with enlarged LEFT axillary lymph node. Ultrasound guided core needle biopsy is requested to evaluate for malignancy. COMPARISON: Outside mammogram from 02/25/2024, outside ultrasound report from 02/25/2024 BREAST PARENCHYMAL COMPOSITION: The breasts are heterogeneously dense, which may obscure small masses. PROCEDURE AND FINDINGS: The risks and potential benefits of the procedures were discussed with the patient and written informed consent was obtained. LESION/SITE A: LEFT breast lesion, 1:30 position, 11 cm from the nipple After sterile preparation of the skin, 1% lidocaine was utilized for local anesthesia. A 14G spring-loaded biopsy needle was then advanced through the skin incision to the edge of the lesion of interest at the 1:30 position, 11 cm from the nipple from a lateral approach utilizing sonographic guidance. A total of 4 tissue cores were obtained through the lesion. A Mammotome [employer] dragonfly tissue marker clip was then placed at the biopsy site. Hemostasis was achieved. Dermabond and an ice pack were applied. The tissue cores were submitted to surgical pathology in formalin for histologic analysis. LESION/ SITE B: LEFT AXILLARY LYMPH NODE CORE BIOPSY After sterile preparation of the skin, 1% lidocaine was utilized for local anesthesia. A 14G spring-loaded biopsy needle was then advanced through the skin incision to the edge of the lesion of interest at the left axilla from a lateral approach utilizing sonographic guidance. A total of 3 tissue cores were obtained through the lymph node. A Bard Twirl tissue marker clip was then placed at the biopsy site. Hemostasis was achieved. The tissue core(s) were submitted to surgical pathology in formalin for histologic analysis. There was no evidence of significant immediate complication. The patient was given verbal as well as written post procedural instructions prior to release from the department. A two-view LEFT digital mammogram with digital breast tomosynthesis post procedure demonstrates that the tissue marker clips are in expected positionS. The attending radiologist, Dr. Alem Grace MD, was present throughout the entire procedure. Dr. Bryce Hale MD (diagnostic radiology director) also participated in this examination. IMPRESSION: 1. Successful biopsy of the LEFT breast (site A), 1:30 mass with accurate placement of dragonfly tissue marker clip. 2. Successful biopsy of LEFT axillary lymph node, with accurate placement of a twirl tissue marker clip. Pathology is pending. ASSESSMENT: Post Procedure Mammograms for Marker Placement The radiology attending physician has personally reviewed this study, and had reviewed and/or edited this written report and agrees with it. Electronically signed by: Alem Grace MD Humberto DOSS [facility] MAMMO PROCEDURES Edite d Result - Final * Surgical pathology (04/14/2024 2:42 PM STENCILING MACHINE TENDER) Tissue (Breast biopsy, needle core) 04/14/2024 2:42 PM STENCILING MACHINE TENDER Comment:left breast 1:30 11 cm/fn, ultrasound biopsy, birads 5 Tissue (Lymph node, needle biopsy) 04/14/2024 2:49 PM STENCILING MACHINE TENDER Comment:left axilla lymph no de, ultrasound biopsy, birads 5 Narrative PATHOLOGY [facility] - 04/15/2024 2:16 PM STENCILING MACHINE TENDER EPIC results best viewed via link to PDF [facility] [place] [address] Note to Patients: This report may contain a detailed description of human tissue sent by a health care provider to the laboratory for pathologic evaluation. The content of this report is essential for diagnosis and may provide important critical findings. This information may be unfamiliar to patients to review without a medical professional present. It is advised that the patient review this report in the presence of a health care provider who can answer questions and explain the details. SURGICAL PATHOLOGY REPORT FINAL Patient Name: ALEXANDRU CHOU Gender: F : 1970 (Age: 53) Address: [address] [place] [id number] Hospital #: [id number] Taken:04/14/2024 Received:04/14/2024 Reported: 04/15/2024 Patient Type: [facility] Ancillary Service: UNKNOWN Location: Physician(s): Alem Grace M.D. ESTEFANIA Hidalgo PA-C Diagnosis: A. Breast, left, 1:30, 11 cm from nipple, ultrasound-guided core biopsy - Fibroadenoma - No atypical or malignant findings B. Lymph node, left axilla, ultrasound-guided core biopsy - Lymph node tissue with no evidence of malignancy lxs/04/15/2024 14:16 By this signature, I attest that the above diagnosis is based upon my personal examination of the slides(and/or other material indicated in the diagnosis). Gabbie Roper MD PhD Report Electronically Reviewed and Signed Out By Gabbie Roper MD PhD 04/15/2024 14:16:17 Microscopic Description and Comment: This case was internally reviewed. History: The patient is a 53-year-old woman presenting for abnormal mammogram. Operative procedure: Left breast ultrasound biopsy and left axilla lymph node ultrasound biopsy Bi- RADS 5. Specimen(s) Received: A: Left breast 1:30 11cmfn ultrasound bx birads 5 B: Left axilla lymph node ultrasound bx birads 5 Gross Description: Received in two formalin jars labeled with the patient's identifiers. A. Labeled left breast 1:30 11 cm FN ultrasound biopsy BI RADS 5 are five white yellow cores of fibrofatty tissue (measuring 0.7-1.8 cm in length by 0.2 cm in diameter. Labeled A1 to A3. Jar 0. Total fixation time= 6.5 hours. B. Labeled left axilla lymph node ultrasound biopsy BI RADS 5 are three yellow cores of fibrofatty tissue (measuring 0.8 to 1.9 cm in length by 0.2 cm in diameter. Labeled B1 to B2. Jar 0. Total fixation time= 6.0 hours. [facility]/04/14/2024 17:45 PA(s): Alem Aguero By this signature, I attest that the above diagnosis is based upon my personal examination of the slides(and/or other material). Addenda/Procedures The performance characteristics of some immunohistochemical stains, fluorescence in-situ hybridization tests and immunophenotyping by flow cytometry cited in this report (if any) were determined by the Surgical Pathology and Flow Cytometry Departments at [facility] as part of an ongoing quality assurance representative program and in compliance with federally mandated regulations drawn from the Clinical Laboratory Improvement Act of 1988 (CLIA '88). Some of these tests rely on the use of analyte specific reagents and are subject to specific labeling requirements by the US Food and Drug Administration. Such diagnostic tests may only be performed in a facility that is certified by the Department of Health and Human Services as a high complexity laboratory under CLIA '88. The FDA has determined that such clearance or approval is not necessary. This test is used for clinical purposes. It should not be regarded as investigational or for research. Nevertheless, federal rules concerning the medical use of analyte specific reagents require that the following disclaimer be attached to the report: This test was developed and its performance characteristics determined by the Surgical Pathology and Flow Cytometry Departments of [facility]. It has not been cleared or approved by the U. S. Food and Drug Administration. IMAGES AND SCANNED DOCUMENTS, IF INCLUDED, ONLY VIEWABLE IN PDF VERSION OF REPORT us Humberto DOSS LAB PATHOLOGY ORDERABLES F inal Result PATHOLOGY [facility] 3rd Floor [place], [place] [phone] * Breast Imaging DX Outside Consult (03/31/2024 6:19 PM STENCILING MACHINE TENDER) Anatomical Region Laterality Modality Breast N/A Mammography 04/01/2024 9:59 AM STENCILING MACHINE TENDER Impressions 04/01/2024 10:24 AM STENCILING MACHINE TENDER 1. Irregular 1.5 cm mass is present in the left breast 1:30 position 11 cm from the nipple, discovered on screening mammogram. This mass is highly suggestive of malignancy. Ultrasound-guided biopsy is recommended. 2. There is an abnormal left axillary lymph node with focal cortical thickening of up to 3.5 mm, this is highly suggestive of metastatic axillary disease. Ultrasound-guided biopsy is recommended. The method of initial detection of finding was 3D screening mammography (Sdbt). OVERALL FINAL ASSESSMENT: BI-RADS Category 5: Highly Suggestive of Malignancy. RECOMMENDATION: 1. Ultrasound-guided biopsy of the irregular left breast mass at the 1:30 region 11 cm from the nipple. 2. Ultrasound guided biopsy of the abnormally thickened left axillary lymph node (3.5 mm cortical thickening). NOTE: The findings, conclusions and recommendations within this report do not replace the initial findings, conclusions and recommendations made at the facility where the study was performed based upon the imaging and clinical condition at that time. Review of the prior report and correlation with the clinical history are necessary. The provided images may or may not represent the [place] source data set and thus may contain changes which may lower the sensitivity of the second opinion interpretation. Dictated by: Dallas Ramirez D.O. The radiology attending physician has personally reviewed this study, and had reviewed and/or edited this written report and agrees with it. Electronically signed by: Michelle Vargas M.D. Narrative 04/01/2024 10:24 AM STENCILING MACHINE TENDER EXAMINATION: REVIEW AND INTERPRETATION OF OUTSIDE IMAGING FACILITY PERFORMING OUTSIDE IMAGING: [place], [place] EXAM(S) REVIEWED: 1. BILATERAL SCREENING MAMMOGRAM WITH TOMOSYNTHESIS, 01/02/2024 2. LEFT UNILATERAL DIAGNOSTIC MAMMOGRAM WITH TOMOSYNTHESIS, 02/25/2024 DATE OF INTERPRETATION: 04/01/2024 HISTORY: 53-year-old woman presents for outside imaging interpretation with a recently discovered left breast mass by screening mammogram. The mass was designated a 4B on the subsequent diagnostic ultrasound and ultrasound-guided biopsy was recommended. COMPARISON: Multiple prior studies, most recently 02/25/2024 and dating back to 01/02/2024. BREAST PARENCHYMAL COMPOSITION: The breasts are heterogeneously dense, which may obscure small masses. FINDINGS: Bilateral screening mammogram: Note that the right CC tomosynthesis view is not available for interpretation on the screening mammogram dated 01/02/2024. Right: No suspicious masses, calcifications or architectural distortion is visualized in the right breast. Left: In the left upper outer breast at posterior depth there is a irregular microlobulated mass that measures 1.5 cm with no internal calcifications. Left diagnostic mammogram: Irregular microlobulated mass in the left upper outer breast measuring 2.1 cm persists on spot compression views and true lateral views and is approximately 11 cm from the nipple. Outside left breast ultrasound report: 1:30 position 11 cm from the nipple there is a heterogenous hypoechoic irregular circumscribed mass that measures 1.3 x 0.7 x 1.5 cm. This is suspicious. Left axilla: Numerous normal-appearing lymph nodes are identified. There is one lymph node with a thickened cortex measuring 3.5 mm. This is indeterminate. Procedure Note Michelle Vargas MD - 04/01/2024 EXAMINATION: REVIEW AND INTERPRETATION OF OUTSIDE IMAGING FACILITY PERFORMING OUTSIDE IMAGING: [place], [place] EXAM(S) REVIEWED: 1. BILATERAL SCREENING MAMMOGRAM WITH TOMOSYNTHESIS, 01/02/2024 2. LEFT UNILATERAL DIAGNOSTIC MAMMOGRAM WITH TOMOSYNTHESIS, 02/25/2024 DATE OF INTERPRETATION: 04/01/2024 HISTORY: 53-year-old woman presents for outside imaging interpretation with a recently discovered left breast mass by screening mammogram. The mass was designated a 4B on the subsequent diagnostic ultrasound and ultrasound-guided biopsy was recommended. COMPARISON: Multiple prior studies, most recently 02/25/2024 and dating back to 01/02/2024. BREAST PARENCHYMAL COMPOSITION: The breasts are heterogeneously dense, which may obscure small masses. FINDINGS: Bilateral screening mammogram: Note that the right CC tomosynthesis view is not available for interpretation on the screening mammogram dated 01/02/2024. Right: No suspicious masses, calcifications or architectural distortion is visualized in the right breast. Left: In the left upper outer breast at posterior depth there is a irregular microlobulated mass that measures 1.5 cm with no internal calcifications. Left diagnostic mammogram: Irregular microlobulated mass in the left upper outer breast measuring 2.1 cm persists on spot compression views and true lateral views and is approximately 11 cm from the nipple. Outside left breast ultrasound report: 1:30 position 11 cm from the nipple there is a heterogenous hypoechoic irregular circumscribed mass that measures 1.3 x 0.7 x 1.5 cm. This is suspicious. Left axilla: Numerous normal-appearing lymph nodes are identified. There is one lymph node with a thickened cortex measuring 3.5 mm. This is indeterminate. IMPRESSION: 1. Irregular 1.5 cm mass is present in the left breast 1:30 position 11 cm from the nipple, discovered on screening mammogram. This mass is highly suggestive of malignancy. Ultrasound-guided biopsy is recommended. 2. There is an abnormal left axillary lymph node with focal cortical thickening of up to 3.5 mm, this is highly suggestive of metastatic axillary disease. Ultrasound-guided biopsy is recommended. The method of initial detection of finding was 3D screening mammography (Sdbt). OVERALL FINAL ASSESSMENT: BI-RADS Category 5: Highly Suggestive of Malignancy. RECOMMENDATION: 1. Ultrasound-guided biopsy of the irregular left breast mass at the 1:30 region 11 cm from the nipple. 2. Ultrasound guided biopsy of the abnormally thickened left axillary lymph node (3.5 mm cortical thickening). NOTE: The findings, conclusions and recommendations within this report do not replace the initial findings, conclusions and recommendations made at the facility where the study was performed based upon the imaging and clinical condition at that time. Review of the prior report and correlation with the clinical history are necessary. The provided images may or may not represent the [place] source data set and thus may contain changes which may lower the sensitivity of the second opinion interpretation. Dictated by: Dallas Ramirez D.O. The radiology attending physician has personally reviewed this study, and had reviewed and/or edited this written report and agrees with it. Electronically signed by: Michelle Vargas M.D. Humberto DOSS IMG MAMMO PROCEDURES Final Result * Breast Imaging US Outside Reference (02/25/2024 12:05 AM STENCILING MACHINE TENDER) Impressions [email or web address] - 03/31/2024 6:09 PM STENCILING MACHINE TENDER These images are for Reference purposes only and have not been reviewed by [facility] Radiology. There will be no report generated by a [facility] Radiologist. Narrative [email or web address] - 03/31/2024 6:09 PM STENCILING MACHINE TENDER EXAMINATION: Images For Reference Purposes Only Humberto DOSS G MAMMO PROCEDURES Final Result Performing Organization Address [facility] Co de Phone Number [email or web address] * Breast Imaging Diagnostic Outside Reference (02/25/2024 12:00 AM STENCILING MACHINE TENDER) Impressions [email or web address] - 03/31/2024 6:07 PM STENCILING MACHINE TENDER These images are for Reference purposes only and have not been reviewed by [facility] Radiology. There will be no report generated by a [facility] Radiologist. Narrative [facility] - 03/31/2024 6:07 PM STENCILING MACHINE TENDER EXAMINATION: Images For Reference Purposes Only Humberto DOSS IMG MAMMO PROCEDURES Final Result Performing Organization Address City/State/[facility] Co de Phone Number [email or web address] from Last 3 Months Insurance [facility] Advance Directives For more information, please contact: [phone] * Full Code (Latest Code Status on File) Date Activated Date Inactivated Comments 09/19/2021 7:10 AM 09/20/2021 5:05 AM Care Teams Dinkey Press Operator Relationship Specialty Start Date End Date Bebe Yarbrough PA [address] [place] [id number] PCP - General Physician Treadle Cut Off Saw Operator 08/13/19
--- OUTSIDE RECORDS SUMMARY | 2024-05-09 21:32 | XMS_ITS | Encounter Summary ---
Author Organization [facility] Address [address] [place] [address] Care Team Providers Care Shop Teacher Name Role Phone Bebe Yarbrough PA-C Primary Care Provider + Encounter Details Date Type Department Care Team (Late Contact Info) Description 03/08/2024 Telephone [facility] - Rheumatology [address] [place] [address], [place] [address] Harshad Trevino MD [address] [place] [address] [place] [address] Social History Tobacco Use Types Packs/Day Years Used Date Smoking Tobacco: Never Smokeless Tobacco: Never Alcohol Use Standard Drinks/Week Comments Not Currently 0 (1 standard drink = 0.6 oz pur e alcohol) Sex and Gender Information Value Date Recorded Sex Assigned at Not on file Gender Identity Not on file Sexual Orientation Not on file documented as of this encounter Miscellaneous Notes * Telephone Encounter - Bushra Justice - 03/08/2024 10:14 AM CST Patient called and made new pt appt, currently scheduled 09/27/24. Patient is asking if she should continue just going to the ER when she is having a breakout? Asking for a call from the office to discuss. Call back number is [phone] ER OPERATOR documented in this encounter Plan of Treatment Upcoming Encounters Date Type Department Care Team (Late st Contact Info) Description 08/06/2024 9:40 AM CDT Office Visit [facility] - Dermatology [address] [place] [address], [place] [phone] Supa Jamil MD [address] [place] [address] [address] [place] [address] 09/27/2024 10:00 AM CDT Office Visit [facility] - Rheumatology [address] [place] [address], [place] [phone] Harshad Trevino MD [address] [place] [address] [address] [place] [id number] documented as of this encounter Visit Diagnoses Not on filedocumented in this encounter Care Teams Shop Teacher Relationship Specialty Start Date End Date Bebe Yarbrough PA-C [address] [place] [phone] PCP - General 05/03/22 documented as of this encounter
--- OUTSIDE RECORDS SUMMARY | 2024-05-09 21:32 | XMS_ITS | Clinical Summary ---
Author Organization [facility] Address [address] [place] [address] Care Team Providers Care Mining Captain Name Role Phone Bebe Yarbrough Primary Care Provider [phone] Allergies No known active allergies Medications acyclovir (ZOVIRAX) 400 mg tablet 10/27/19 20 Active lisinopril-hyd roCHLOROthiazi de (ZESTORETIC) 20-12.5 mg per tablet 08/12/19 21 Active omeprazole (PriLOSEC) 20 mg capsule TAKE 1 CAPSULE BY MOUTH ONCE DAILY IN THE MORNING 12/11/19 23 Active docusate sodium (COLACE) 100 mg capsule 12/17/19 23 Active fexofenadine (JOHN) 180 mg tablet TAKE 1 TABLET BY MOUTH ONCE DAILY AFTER A MEAL Active fluticasone propionate (FLONASE) 50 mcg/actuation nasal spray USE 1 SPRAY(S) IN EACH NOSTRIL ONCE DAILY Active polyethylene glycol (MIRALAX) 17 gram/dose bulk powder 11/13/19 23 Active tretinoin (RETIN-A) 0.05 % cream Apply pea-sized amount to ENTIRE face at NIGHT. 30 days supply. 12/21/19 23 Active triamcinolone (KENALOG) 0.1 % ointment Apply to affected areas over trunk & extremities up to twice daily as needed. Avoid on face/armpits/gr oin. Limit use to up to 2 weeks per month. 30 day supply. 12/21/19 23 Active famotidine (PEPCID) 20 mg tablet TAKE 1 TABLET BY MOUTH TWICE DAILY DIRECTED 12/24/19 23 Active clindamycin (CLEOCIN T) 1 % lotion [...] Dyslipidemia 10/02/2016 Hypertension 10/02/2016 Multiple sclerosis 10/02/2016 Encounters Date Type Department Care Team Description 04/22/2024 5:21 PM CUSTOM BOOKBINDER - 04/22/2024 11:59 PM CUSTOM BOOKBINDER Hospital Encounter [facility] [address] [place] [address] Well woman exam Discharge Disposition: Discharge to home or self care 04/22/2024 2:45 PM CUSTOM BOOKBINDER Office Visit [facility] [address] [facility] 3rd Floor [address] [place] [phone] Yadira Hanson MD Well woman exam (Primary Dx); Stage 3 chronic kidney disease, unspecified whether stage 3a or 3b CKD (HCC); Multiple sclerosis (HCC) 04/15/2024 Telephone [facility] ([facility]) [address] [place] [phone] Hue Fontanez Test Results (Left breast and left axillary lymph node biopsy 04/14/24) 04/14/2024 2:54 PM CUSTOM BOOKBINDER - 04/14/2024 11:59 PM CUSTOM BOOKBINDER Hospital Encounter [facility] ([facility]) [address] [place] [address] Abnormal mammogram Discharge Disposition: Discharge to home or self care 04/14/2024 2:03 PM CUSTOM BOOKBINDER - 04/14/2024 11:59 PM CUSTOM BOOKBINDER Hospital Encounter [facility] ([facility]) [address] [place] [address] Abnormal mammogram Discharge Disposition: Discharge to home or self care 04/07/2024 Telephone [facility] ([facility]) [address] [place] [phone] Aisha Seo RN 04/06/2024 Telephone [facility] ([facility]) [address] [place] [address] Macy Handy RN 04/01/2024 Telephone [facility] ([facility]) [address] [place] [address] Macy Handy RN 03/31/2024 6:19 PM CUSTOM BOOKBINDER - 03/31/2024 11:59 PM CUSTOM BOOKBINDER Hospital Encounter [facility] ([facility]) [address] [place] [address] Discharge Disposition: Discharge to home or self care 02/25/2024 12:05 AM CUSTOM BOOKBINDER - 02/25/2024 11:59 PM CUSTOM BOOKBINDER Hospital Encounter [facility] ([facility]) [address] [place] [phone] Discharge Disposition: Discharge to home or self care 02/25/2024 - 02/25/2024 11:59 PM CUSTOM BOOKBINDER Hospital Encounter [facility] ([facility]) [address] [place] [address] Discharge Disposition: Discharge to home or self care from Last 3 Months Immunizations Immunization Administration Dates Next Due Tdap 06/03/2019 Tetanus Toxoid, Unspecified 06/03/2019 Surgical History Surgery Date Site/Laterality Comments EMBOLIZATION ORGAN ISCHEMIA OR INFARCTION 09/19/2021 N/A BREAST BIOPSY 04/14/2024 Left CARPAL TUNNEL RELEASE Medical History Medical History Date Comments Hypertension High cholesterol Multiple sclerosis (HCC) Vinnie thyroiditis Family History Medical History Relation Name Comments No Known Problems Father No Known Problems Mother Relation Name Status Comments Father Mother Social History Tobacco Use Types Packs/Day Years [...] on file Sexual Orientation Not on file Obstetrics History Para Term AB IAB SAB Ectopic Multiple Livin g Live Births 2 2 2 2 Date Outcome GA Total Labor Labor/2nd/3rd Weight Sex Type Anes PTL Barbara A1 A5 Name Clin Term Term Last Filed Vital Signs Vital Sign Reading Time Taken Comments Blood Pressure 122/79 04/22/2024 2:30 PM CUSTOM BOOKBINDER Pulse 88 04/22/2024 2:30 PM CUSTOM BOOKBINDER Temperature 36.7 C (98 F) 01/14/2023 1:15 PM CDT Respiratory Rate 18 01/14/2023 1:15 PM CDT Oxygen Saturation 100% 04/22/2024 2:30 PM CUSTOM BOOKBINDER Inhaled Oxygen Concentration - - Weight 77.8 kg (171 lb 9.6 oz) 04/22/2024 2:30 P M CUSTOM BOOKBINDER Height 165.1 cm (5' 5 ) 01/14/2023 1:15 PM CDT Body Mass Index 28.56 01/14/2023 1:15 PM CDT Plan of Treatment Health Maintenance Due Date Last Done Comments Breast Cancer Screening-Mammogram 1968 Colon Cancer Screening-Colonoscopy 1968 Depression Screening 1968 Hepatitis C Screening 1968 Hepatitis B Screening 1986 Zoster Vaccine (1 of 2) 2018 Influenza Vaccine (#1) 2023 Cervical Cancer Screening 04/22/20252024, 04/22/2024 Regular Well Visit/Exam 18-64 04/22/2025 04/22/2024 DTaP/Tdap/Td Vaccine (2 - Td or Tdap) 06/02/2029 06/03/2019 Pneumococcal vaccine <65 Aged Out No longer eligible based on patient's age to complete this topic Medical Devices Implanted Type Area Skiing Teacher Device Identifier Shelf Expiration Date Model / Serial / Lot RetiDiag Embosphere Saline Syringe Compressible Nonaggregate Highly Target S620gh - [id number] Implanted:Qty: 2 on 09/19/2021 at [facility] RetiDiag 12/18/2023 S620GH / / [id number]. [facility] Embosphere Saline Syringe Compressible Nonaggregate Highly Target S620gh - [id number] Implanted:Qty: 1 on 09/19/2021 at [facility] 05/21/2024 S620GH / / [id number] [facility] Embosphere Saline Syringe Compressible Nonaggregate Highly Target S620gh - [id number] Implanted:Qty: 2 on 09/19/2021 at [facility] [employer] 12/18/2023 S620GH / / [id number]. [facility] Embosphere Saline Syringe Compressible Nonaggregate Highly Target S620gh - [id number] Implanted:Qty: 1 on 09/19/2021 at [facility] 05/21/2024 S620GH / / [id number] Angio-Seal Vip 6fr Closere Device [id number] - [id number] Implanted:Qty: 1 on 09/19/2021 at [facility] [employer] 06/21/2022 [id number] / / [id number] [employer] Marker Image Hydromark Plus T5 Titanium 15ga Radiological Implant Sterile 4009-05-08-T5 - [id number] Implanted:Qty: 1 on 04/14/2024 by Bryce Hale MD at [facility] Left: Breast [employer] [id number] 03/11/2025 4010-02-1 5-T5 / / [id number] Bard Peripheral Vascular Marker Breast Ring Shape Radiopaque Nitinol Ultracor Twirl [id number] Uctw17 - [id number] Implanted:Qty: 1 on 04/14/2024 by Bryce Hale MD at [facility] Left: Axilla Bard Peripheral Vascular [id number] / / Procedures Procedure Name Priority Date/Time Associated Diagnosis Comments PAP AND HIGH RISK HPV, REFLEX TO GENOTYPING Routine 04/22/2024 2:48 PM CUSTOM BOOKBINDER Well woman exam HIGH RISK HPV DNA DETECTION WITH GENOTYPING Routine 04/22/2024 2:48 PM CUSTOM BOOKBINDER CARLSO POST CLIP PLACEMENT LEFT Schedule Routine, Read Routine (OP Routine) 04/14/2024 3:23 PM CUSTOM BOOKBINDER Abnormal mammogram US GUIDED BREAST BIOPSY LEFT Schedule Routine, Read Routine (OP Routine) 04/14/2024 3:03 PM CUSTOM BOOKBINDER Abnormal mammogram SURGICAL PATHOLOGY Routine 04/14/2024 2: 42 PM CUSTOM BOOKBINDER Abnormal mammogram BREAST IMAGING MG DIAGNOSTIC OUTSIDE CONSULT Routine 03/31/2024 6:19 PM CUSTOM BOOKBINDER BREAST IMAGING US OUTSIDE REFERENCE Schedule Routine, Read Routine (OP Routine) 02/25/2024 12:05 AM CUSTOM BOOKBINDER BREAST IMAGING MG DIAGNOSTIC OUTSIDE REFERENCE Schedule Routine, Read Routine (OP Routine) 02/25/2024 12:00 AM CUSTOM BOOKBINDER from Last 3 Months Results * High Risk HPV DNA Detection with Genotyping (Molecular component) (04/22/2024 2:48 PM CUSTOM BOOKBINDER) Pathologist [facility] HPV HR 16 Not Detected Not Detected [facility] HPV HR 18 Not Detected Not Detected [facility] HPV HR Non 16/18 Not Detected Not Detected [facility] Comment: Interpretive Data Nucleic acid amplification [...] this test have been verified by the [facility] Molecular Infectious Disease laboratory. Correlate with separately reported cytology results, as applicable. Interpretive data last revised 22 Endocervical 04/22/2024 2:48 PM CUSTOM BOOKBINDER 04/26/2024 2:59 PM CUSTOM BOOKBINDER us Yadira Hanson MD LAB BODY FLUIDS AND STOOLS ORDERABLES Final Result [facility] Department [place] [address] [facility] * Pap and High Risk HPV and Genotyping (Cytology Component) (04/22/2024 2:48 PM CUSTOM BOOKBINDER) Thin prep (Pap test) 04/22/2024 2:48 PM CUSTOM BOOKBINDER 04/22/2024 5:22 PM CUSTOM BOOKBINDER Narrative PATHOLOGY [facility] - 04/30/2024 8:08 AM CUSTOM BOOKBINDER EPIC results best viewed via link to PDF [facility] Raegan Booker Laboratory of Surgical [place] [address] Note to Patients: This report may contain [...] REPORT FINAL Patient Name: ALEXANDRU CHOU Gender: Ralf : 1970 (Age: 53) Address: [address] [place] [phone] [facility] #: [id number] Service: WRINGER AND SETTER Location: Patient Type: [facility] SPECIMEN Taken: 04/22/2024 Received: 04/22/2024 Accessioned: 04/26/2024 [...] this test have been verified by the [facility] Molecular Infectious Disease laboratory. Correlate with reported cytology results, as applicable. Interpretive data last revised 22 [facility]/04/30/2024 08:08 DAVID Luna(ASCP) Report Electronically Reviewed and Signed Out By DAVID Luna(ASCP) 04/30/2024 08:08:27 Cervicovaginal Cytology (Pap Test) Disclaimer: The Pap test is a screening test used to detect cervical cancer and its precursors; it is not a diagnostic procedure. False negative and false positive results do occur. Pap test results should be interpreted in the context of pertinent clinical information and biopsy results as indicated. [facility] Clinical Laboratory Improvement Amendments (CLIA) mandate that cytologic and histologic results be correlated for laboratory dairy quality assurance officer & improvement standards. FOR ALL HIGH-GRADE CASES [...] determined by the Surgical Pathology Department at [facility] as part of an ongoing dairy quality assurance officer program and in compliance with federally mandated [...] determined by the Surgical Pathology Department of [facility]. It has not been cleared or approved by the U. S. Food and Drug Administration. Yadira Hanson MD LAB CYTOLOGY ORDERABLES Fi nal Result PATHOLOGY [facility] 3rd Floor [place], [place] [phone] * Carlos Post Clip Placement Left (04/14/2024 3:23 PM CUSTOM BOOKBINDER) Anatomical Region Laterality Modality Breast Left Mammography 04/14/2024 3:23 PM CUSTOM BOOKBINDER Addenda Addendum by Alem Grace MD on 04/15/2024 3:16 PM CUSTOM BOOKBINDER Pathology results of the left 1:30 mass [...] concordant. Return for annual screening mammography. A [facility] breast nurse navigator will contact patient and PCP with these results and recommendation. A separate note will be placed in [facility]. Electronically signed by: Alem Grace MD Impressions 04/14/2024 3:28 PM CUSTOM BOOKBINDER 1. Successful biopsy of the LEFT breast [...] Alem Grace MD Narrative 04/14/2024 3:28 PM CUSTOM BOOKBINDER EXAMINATION: LEFT BREAST CORE BIOPSY UTILIZING SONOGRAPHIC [...] were obtained through the lymph node. A InterResolve Twirl tissue marker clip was then placed [...] entire procedure. Dr. Bryce Hale MD (diagnostic student life vice president) also participated in this examination. Procedure Note [...] were obtained through the lesion. A Mammotome ZenDaymark dragonfly tissue marker clip was then placed [...] were obtained through the lymph node. A InterResolve Twirl tissue marker clip was then placed [...] entire procedure. Dr. Bryce Hale MD (diagnostic student life vice president) also participated in this examination. IMPRESSION: 1. [...] Guided Breast Biopsy Left (04/14/2024 3:03 PM CUSTOM BOOKBINDER) Anatomical Region Laterality Modality Breast Left Mammography 04/14/2024 3:23 PM CUSTOM BOOKBINDER Addenda Addendum by Alem Grace MD on 04/15/2024 3:16 PM CUSTOM BOOKBINDER Pathology results of the left 1:30 mass [...] concordant. Return for annual screening mammography. A [facility] breast nurse navigator will contact patient and PCP with these results and recommendation. A separate note will be placed in Epic. Electronically signed by: Alem Grace MD Impressions 04/14/2024 3:28 PM CUSTOM BOOKBINDER 1. Successful biopsy of the LEFT breast [...] Alem Grace MD Narrative 04/14/2024 3:28 PM CUSTOM BOOKBINDER EXAMINATION: LEFT BREAST CORE BIOPSY UTILIZING SONOGRAPHIC [...] were obtained through the lesion. A Mammotome ZenDaymark dragonfly tissue marker clip was then placed [...] were obtained through the lymph node. A InterResolve Twirl tissue marker clip was then placed [...] entire procedure. Dr. Bryce Hale MD (diagnostic student life vice president) also participated in this examination. Procedure Note [...] entire procedure. Dr. Bryce Hale MD (diagnostic student life vice president) also participated in this examination. IMPRESSION: 1. [...] Final * Surgical pathology (04/14/2024 2:42 PM CUSTOM BOOKBINDER) Tissue (Breast biopsy, needle core) 04/14/2024 2:42 PM CUSTOM BOOKBINDER Comment:left breast 1:30 11 cm/fn, ultrasound biopsy, birads 5 Tissue (Lymph node, needle biopsy) 04/14/2024 2:49 PM CUSTOM BOOKBINDER Comment:left axilla lymph no de, ultrasound biopsy, birads 5 Narrative PATHOLOGY [facility] - 04/15/2024 2:16 PM CUSTOM BOOKBINDER EPIC results best viewed via link to PDF [facility] Raegan Booker Laboratory of Surgical Pathology [place] [address] Note to Patients: This report may contain [...] Gender: F : 1970 (Age: 53) Address: [address] [place] [id number] Hospital #: [id number] Taken:04/14/2024 Received:04/14/2024 Reported: 04/15/2024 Patient Type: [facility] Ancillary Service: UNKNOWN Location: Physician(s): Romel Alvarez PA-C Taylor P. Bogue, PA-C Diagnosis: A. Breast, left, 1:30, 11 [...] Jar 0. Total fixation time= 6.0 hours. elsw/04/14/2024 17:45 PA(s): Alem Aguero By this signature, I attest that the above diagnosis is based upon my personal examination of the slides(and/or other material). Addenda/Procedures The performance characteristics of some immunohistochemical stains, fluorescence in-situ hybridization tests and immunophenotyping by flow cytometry cited in this report (if any) were determined by the Surgical Pathology and Flow Cytometry Departments at [facility] as part of an ongoing dairy quality assurance officer program and in compliance with federally mandated [...] Surgical Pathology and Flow Cytometry Departments of [facility]. It has not been cleared or approved by the U. S. Food and Drug Administration. IMAGES AND SCANNED DOCUMENTS, IF INCLUDED, ONLY VIEWABLE IN PDF VERSION OF REPORT Humberto DOSS LAB PATHOLOGY ORDERABLES F inal Result PATHOLOGY [facility] 3rd Floor [place], [place] [phone] * Breast Imaging DX Outside Consult (03/31/2024 6:19 PM CUSTOM BOOKBINDER) Anatomical Region Laterality Modality Breast N/A Mammography 04/01/2024 9:59 AM CUSTOM BOOKBINDER Impressions 04/01/2024 10:24 AM CUSTOM BOOKBINDER 1. Irregular 1.5 cm mass is present [...] images may or may not represent the [place] source data set and thus may contain changes which may lower the sensitivity of the second opinion interpretation. Dictated by: Dallas Ramirez D.O. The radiology attending physician has personally reviewed this study, and had reviewed and/or edited this written report and agrees with it. Electronically signed by: Michelle Vargas M.D. Narrative 04/01/2024 10:24 AM CUSTOM BOOKBINDER EXAMINATION: REVIEW AND INTERPRETATION OF OUTSIDE IMAGING FACILITY PERFORMING OUTSIDE IMAGING: [place], [place] EXAM(S) REVIEWED: 1. BILATERAL SCREENING MAMMOGRAM [...] OF OUTSIDE IMAGING FACILITY PERFORMING OUTSIDE IMAGING: [place], [place] EXAM(S) REVIEWED: 1. BILATERAL SCREENING MAMMOGRAM [...] images may or may not represent the [place] source data set and thus may contain changes which may lower the sensitivity of the second opinion interpretation. Dictated by: Dallas Ramirez D.O. The radiology attending physician has personally reviewed this study, and had reviewed and/or edited this written report and agrees with it. Electronically signed by: Michelle Vargas M.D. us Humberto DOSS IMG MAMMO PROCEDURES Final Result * Breast Imaging US Outside Reference (02/25/2024 12:05 AM CUSTOM BOOKBINDER) Impressions [facility] - 03/31/2024 6:09 PM CUSTOM BOOKBINDER These images are for Reference purposes only and have not been reviewed by [facility] Radiology. There will be no report generated by a [facility] Radiologist. Narrative [facility] - 03/31/2024 6:09 PM CUSTOM BOOKBINDER EXAMINATION: Images For Reference Purposes Only Humberto DOSS IMG MAMMO PROCEDURES Final Result Performing Organization Address City/[facility]/ZIP Co de Phone Number [email or web address] * Breast Imaging Diagnostic Outside Reference (02/25/2024 12:00 AM CUSTOM BOOKBINDER) Impressions [facility] - 03/31/2024 6:07 PM CUSTOM BOOKBINDER These images are for Reference purposes only and have not been reviewed by [facility] Radiology. There will be no report generated by a [facility] Radiologist. Narrative [facility] - 03/31/2024 6:07 PM CUSTOM BOOKBINDER EXAMINATION: Images For Reference Purposes Only Humberto DOSS IMG MAMMO PROCEDURES Final Result Performing Organization Address [facility] Co de Phone Number [facility] from Last 3 Months Insurance [facility] Advance Directives For more information, please contact: [phone] * Full Code (Latest Code Status on File) Date Activated Date Inactivated Comments 09/19/2021 7:10 AM 09/20/2021 5:05 AM Care Teams Mining Captain Relationship Specialty Start Date End Date Bebe Yarbrough PA [address] [place] [address] PCP - General Physician Airborne Operations Superintendent 08/13/19
--- OUTSIDE RECORDS SUMMARY | 2024-05-09 21:32 | XMS_ITS | Clinical Summary ---
Author Organization [facility] Address [address] [place] [phone] Phone Care Team Providers Care Head Paper Tester Name Role Phone Provider, Not On File Primary Care Provider Unav ailable Allergies No known active allergies Medications Lidocaine 4 % Patch 1 Patch by Transdermal route every 24 hours. 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 Gender Identity Female 09/09/2023 11:11 AM CDT Sexual Orientation Not on file Last Filed Vital Signs Vital Sign Reading Time Taken Comments Blood Pressure 129/89 06/16/2023 4:48 PM CDT Pulse 73 06/16/2023 4:48 PM CDT Temperature 37.2 C (98.9 F) 06/16/2023 4:48 PM CDT Respiratory Rate 18 06/16/2023 4:48 PM CDT Oxygen Saturation 100% 06/16/2023 4:48 PM CDT Inhaled Oxygen Concentration - - Weight 77.6 kg (171 lb) 06/16/2023 4:48 PM CDT Height - - Body Mass Index - - Plan of Treatment Health Maintenance Due Date Last Done Comments Hepatitis C Virus (HCV) Screening 1970 Hepatitis B Immunization (1 of 3 - 19+ 3-dose series) 10/24/1987 Pap Smear 1989 Cervical Cancer Screening (CCS) 1998 HPV/Cotest 1998 Colonoscopy 2013 Colorectal Cancer Screening 2013 Cologuard 2018 Immunochemical Fecal Occult Blood 2018 Mammogram 2018 Pneumococcal Immunization (5 0+ years) (1 of 1 - PCV) 2018 Zoster Immunization (1 of 2) 2018 Influenza Immunization (#1) 2023 SARS-COV-2 Immunization ( - 2023- season) 2023 Respiratory Syncytial Virus (RSV) Immunization (Adult) (1 - 1-dose 75+ series) 10/24/2043 DTaP/Tdap/Td Immunization Discontinued 06/03/2019 TdaP Immunization Completed 06/03/2019 Meningococcal Immunization (ACWY) Aged Out No longer eligible based on patient's age to complete this topic Pneumococcal Immunization Combined Aged Out No longer eligible based on patient's age to complete this topic Rotavirus Immunization Aged Out No lo nger eligible based on patient's age to complete this topic Insurance MEDICAID [facility] MEDICAID [facility] [place] [facility] Care Teams Head Paper Tester Relationship Specialty Start Date End Date Provider, Not On File [place] PCP - General 06/16/23
--- OUTSIDE RECORDS SUMMARY | 2024-05-09 21:32 | XMS_ITS | Data Portability ---
Author Organization [facility] Address [address] [place] [address] Care Team Providers Care Acupuncturist Name Role Phone HUMBERTO HERRING Primary Care Provider [phone] Assessment No assessment recorded. Plan of Treatment Reminders Order Date Submit Date Provider Last Modified By Organization Details Last Modified Time Details Appointments ANY 30 2024 03:00P M Adrián Wilcox MD Not available Not available Not available ANY 15 2024 10:30A M HUMBERTO HERRING PA-C Not available Not available Not available Lab cobalamin and folate panel, serum 2023 024 [facility], [address], [place], [address], 03/10/2024 06:20:05 iron + total iron-bind ing capacity (TIBC), serum 2023 024 [facility], [address], [place], [address], 03/10/2024 06:20:06 TSH + free T4, serum 2023 024 [facility], [address], [place], [address], 03/10/2024 06:20:03 T3, free, serum or plasma 2023 024 [facility], [address], [place], [address], 03/10/2024 06:20:07 urinalysi s, complete 2023 025 [facility], [address], [place], [address], 03/24/2024 03:12:26 protein:c reatinine ratio, urine 2023 024 randee [facility], [address], [place], [address], 03/12/2024 11:08:22 CBC w/ auto diff 2023 025 [facility], [address], [place], [address], 03/24/2024 03:12:27 PTH (parathyr oid hormone), intact + calcium, serum or plasma 2023 025 [facility], [address], [place], [address], 03/24/2024 03:12:27 vitamin D, 25-hydrox y, total, serum 2023 025 [facility], [address], [place], [address], 03/24/2024 03:12:27 immunoglo bulins iga+igg+i gm, quantitat cinthya, serum 2023 025 [facility], [address], [place], [address], 03/24/2024 03:12:28 immunofix ation, urine 2023 025 [facility], [address], [place], [address], 03/24/2024 03:12:28 allergy panel, serum or plasma 2023 024 [facility], [address], [place], [address], 01/25/2024 08:08:50 CMP, serum or plasma 2023 024 [facility], [address], [place], [address], 01/22/2024 06:20:40 rf (rheumato id factor), serum 2023 024 [facility], [address], [place], [address], 01/25/2024 08:08:51 FORTUNATO (antinucl ear antibodie s) screen, serum 2023 024 [facility], [address], [place], [address], 01/25/2024 08:08:48 Referral nutrition ist/dieti gasper referral [address] Nutrition/ Computer Applications Instructor, [address] [place] [address], [address], 05/06/2024 12:37:10 Procedures None recorded. Surgeries None recorded. Imaging XR, shoulder, 2 or more view 2024 025 [facility] (Im[facility]), [address], [place], [address], 05/07/2024 13:10:46 US, breast, unilatera l 2023 024 [email or web address] [facility] ([facility]), [address] [place], [address], 02/03/2024 16:14:19 MAMMO, diagnosti c, unilatera l 2023 024 [email or web address] [facility] ([facility]), [address] [place], [address], 02/03/2024 16:13:42 Medication Orders cetirizin e 10 mg tablet 2024 [facility] [address], [address] [place] [address], [address], 05/06/2024 12:37:19 famotidin e 20 mg tablet 2024 [facility] [address], [address] [place] [address], [address], 05/06/2024 12:37:17 prednison e 10 mg tablets in a dose pack 2024 [facility] [address], [address] [place] [address], [address], 05/06/2024 12:37:16 hydrochlo rothiazid e 12.5 mg tablet 2024 025 [facility] [address], [address] [place] [address], [address], 05/06/2024 15:41:10 amlodipin e 10 mg tablet 2024 025 [facility] [address], [address] [place] [address], [address], 05/06/2024 12:37:18 famotidin e 20 mg tablet 2023 024 [facility] [address], [address] [place] [address], [address], 03/09/2024 10:15:35 cetirizin e 10 mg tablet 2023 024 [facility] [address], [address] [place] [address], [address], 03/09/2024 10:15:37 Depo-Medr ol 40 mg/mL suspensio n for injection 10/30/ 2024 10/30/2 024 [email or web address] Not available 03/09/2024 10:05:54 cetirizin e 10 mg tablet 2023 024 [facility], [address] [place], [address], 01/21/2024 11:29:50 famotidin e 20 mg tablet 2023 024 [facility], [address] [place], [address], 01/21/2024 11:29:51 hydrocort isone 25 mg-pramox ine 18 mg rectal supposito ry [email or web address] [facility], [address] [place], [address], 01/06/2024 14:45:45 Patient TargetsNo targets recorded. Patient Instructions Encounter Date Encounter Id Patient Instructions Last Modified By Organization Details Last Modified Time 01/21/2024 [id number] A healthy lifestyle: care instructions [email or web address] Not available 01/21/2024 11:29:15 Core Needle Breast Biopsy: About This Test [email or web address] Not available 01/21/2024 11:26:31 multiple sclerosis (MS): care instructions [email or web address] Not available 01/21/2024 11:27:56 03/09/2024 [id number] A healthy lifestyle: care instructions [email or web address] Not available 03/09/2024 10:20:11 05/06/2024 [id number] A healthy lifestyle: care instructions Not available 05/06/2024 12:37:10 learning about high blood pressure [email or web address] Not available 05/06/2024 12:37:10 dash diet: care instructions [email or web address] Not available 05/06/2024 12:37:10 Reason for Referral Beck Tender/dietitian Refer ral for Overweight Referring Physician: Humberto Herring, Family Medicine, Encounter Date: 05/06/2024 Results Created Date Observation Date Name Description Value Unit Range Abnormal Flag Note LastModifiedBy Organization Detail LastModifiedTime 01/21/20 24 01/22/2024 COMP. METAB OLIC PANEL (14) glucose 78 mg/dL 70-99 Not Available [facility] ([facility]) [address] [place], [address], 01/22/2024 06:20:40 01/21/20 24 01/22/2024 COMP. METAB OLIC PANEL (14) BUN 19 mg/dL 6-24 Not Available [facility] ([facility]) [address] [place], [address], 01/22/2024 06:20:40 01/21/20 24 01/22/2024 COMP. METAB OLIC PANEL (14) creatinine 1.14 mg/dL 0.57-1 .00 above high normal Not Available [facility] ([facility]) [address] [place], [address], 01/22/2024 06:20:40 01/21/20 24 01/22/2024 COMP. METAB OLIC PANEL (14) eGFR 57 mL/mi n/1.7 3 >59 below low normal Not Available [facility] ([facility]) [address] [place], [address], 01/22/2024 06:20:40 01/21/20 24 01/22/2024 COMP. METAB OLIC PANEL (14) BUN/creatini ne ratio 17 9-23 Not Available [facility] ([facility]) [address] [place], [address], 01/22/2024 06:20:40 01/21/20 24 01/22/2024 COMP. METAB OLIC PANEL (14) sodium 139 mmol/ L 134-14 4 Not Available [facility] ([facility]) [address] [place], [address], 01/22/2024 06:20:40 01/21/20 24 01/22/2024 COMP. METAB OLIC PANEL (14) potassium 4.2 mmol/ L 3.5-5. 2 Not Available [facility] ([facility]) [address] [place], [address], 01/22/2024 06:20:40 01/21/20 24 01/22/2024 COMP. METAB OLIC PANEL (14) chloride 100 mmol/ L 96-106 Not Available [facility] ([facility]) [address] [place], [address], 01/22/2024 06:20:40 01/21/20 24 01/22/2024 COMP. METAB OLIC PANEL (14) carbon dioxide, total 22 mmol/ L 20-29 Not Available [facility] ([facility]) [address] [place], [address], 01/22/2024 06:20:40 01/21/20 24 01/22/2024 COMP. METAB OLIC PANEL (14) calcium 10.3 mg/dL 8.7-10 .2 above high normal Not Available [facility] ([facility]) [address] [place], [address], 01/22/2024 06:20:40 01/21/20 24 01/22/2024 COMP. METAB OLIC PANEL (14) protein, total 7.8 g/dL 6.0-8. 5 Not Available [facility] ([facility]) [address] [place], [address], 01/22/2024 06:20:40 01/21/20 24 01/22/2024 COMP. METAB OLIC PANEL (14) albumin 4.4 g/dL 3.8-4. 9 Not Available [facility] ([facility]) [address] [place], [address], 01/22/2024 06:20:40 01/21/20 24 01/22/2024 COMP. METAB OLIC PANEL (14) globulin, total 3.4 g/dL 1.5-4. 5 Not Available [facility] ([facility]) [address] [place], [address], 01/22/2024 06:20:40 01/21/20 24 01/22/2024 COMP. METAB OLIC PANEL (14) bilirubin, total 0.3 mg/dL 0.0-1. 2 Not Available [facility] ([facility]) [address] [facility], [place], [address], 01/22/2024 06:20:40 01/21/20 24 01/22/2024 COMP. METAB OLIC PANEL (14) alkaline phosphatase 112 IU/L 44-121 Not Available [facility] ([facility]) [address] [facility], [place], [address], 01/22/2024 06:20:40 01/21/20 24 01/22/2024 COMP. METAB OLIC PANEL (14) AST (SGOT) 24 IU/L 0-40 Not Available [facility] ([facility]) [address] [facility], [place], [address], 01/22/2024 06:20:40 01/21/20 24 01/22/2024 COMP. METAB OLIC PANEL (14) ALT (SGPT) 18 IU/L 0-32 Not Available [facility] ([facility]) [address] [place], [address], 01/22/2024 06:20:40 01/21/20 24 01/22/2024 BHAVANA+C 3+C4+ RA QN+DN A/DS+ CARD. .. complement C3, serum 189 mg/dL 82-167 above high normal Not Available [facility] ([facility]) [address] [place], [address], 01/25/2024 08:08:47 01/21/2001/22/2024 BHAVANA+C 3+C4+ RA QN+DN A/DS+ CARD. .. complement C4, serum 31 mg/dL 12-38 Not Available [facility] ([facility]) [address] [place], [address], 01/25/2024 08:08:47 01/21/20 24 01/22/2024 BHAVANA+C 3+C4+ RA QN+DN A/DS+ CARD. .. anti-DNA (ds) Ab qn 1 IU/mL 0-9 Negat cinthya <5 Equiv ocal 5 - 9 Posit cinthya >9 Not Available [facility] ([facility]) [address] [place], [address], 01/25/2024 08:08:47 01/21/20 24 01/22/2024 BHAVANA+C 3+C4+ RA QN+DN A/DS+ CARD. .. order fulfillment specialist antibodies 3.5 ai 0.0-0. 9 above high normal Not Available [facility] ([facility]) [address] [place], [address], 01/25/2024 08:08:47 01/21/20 24 01/22/2024 BHAVANA+C 3+C4+ RA QN+DN A/DS+ CARD. .. valerio antibodies 0.3 ai 0.0-0. 9 Not Available [facility] ([facility]) [address] [place], [address], 01/25/2024 08:08:47 01/21/20 24 01/22/2024 BHAVANA+C 3+C4+ RA QN+DN A/DS+ CARD. .. antisclerode rma-70 antibodies <0.2 ai 0.0-0. 9 Not Available [facility] ([facility]) [address] [place], [address], 01/25/2024 08:08:47 01/21/20 24 01/22/2024 BHAVANA+C 3+C4+ RA QN+DN A/DS+ CARD. .. sjogren's anti-ss-A <0.2 Not Available [facility] ([facility]) [address] [place], [address], 01/25/2024 08:08:47 01/21/20 24 01/22/2024 BHAVANA+C 3+C4+ RA QN+DN A/DS+ CARD. .. sjogren's anti-ss-B <0.2 Not Available [facility] ([facility]) [address] [place], [address], 01/25/2024 08:08:47 01/21/20 24 01/22/2024 BHAVANA+C 3+C4+ RA QN+DN A/DS+ CARD. .. antichromati n antibodies 2.3 ai 0.0-0. 9 above high normal Not Available [facility] ([facility]) [address] [place], [address], 01/25/2024 08:08:47 01/21/20 24 01/22/2024 BHAVANA+C 3+C4+ RA QN+DN A/DS+ CARD. .. anti-centrom ere B antibodies <0.2 ai 0.0-0. 9 Not Available [facility] ([facility]) [address] [place], [address], 01/25/2024 08:08:47 01/21/20 24 01/23/2024 HBAVANA+C 3+C4+ RA QN+DN A/DS+ CARD. .. thyroid peroxidase (tpo) Ab 209 IU/mL 0-34 above high normal Not Available [facility] ([facility]) [address] [place], [address], 01/25/2024 08:08:47 01/21/2001/23/2024 BHAVANA+C 3+C4+ RA QN+DN A/DS+ CARD. .. anti-ccp Ab, IgG/IgA 12 units 0-19 Negat cinthya <20 Weak posit cinthya 20 - 39 Moder ate posit cinthya 40 - 59 Stron g posit cinthya >59 Not Available [facility] ([facility]) [address] [place], [address], 01/25/2024 08:08:47 01/21/20 24 01/23/2024 BHAVANA+C 3+C4+ RA QN+DN A/DS+ CARD. .. anticardioli pin Ab,IgG,qn <9 gpl_U /mL 0-14 Negat cinthya: <15 Indet ermin ate: 15 - 20 Low-M ed Posit cinthya: >20 - 80 High Posit cinthya: >80 Not Available [facility] ([facility]) [address] [place], [address], 01/25/2024 08:08:47 01/21/20 24 01/23/2024 BHAVANA+C 3+C4+ RA QN+DN A/DS+ CARD. .. anticardioli pin Ab,IgM,qn <9 Negat cinthya: <13 Indet ermin ate: 13 - 20 Low-M ed Posit cinthya: >20 - 80 High Posit cinthya: >80 Not Available [facility] ([facility]) [address] [place], [address], 01/25/2024 08:08:47 01/21/20 24 01/23/2024 BHAVANA+C 3+C4+ RA QN+DN A/DS+ CARD. .. anticardioli pin Ab,IgA,qn <9 Negat cinthya: <12 Indet ermin ate: 12 - 20 Low-M ed Posit cinthya: >20 - 80 High Posit cinthya: >80 Not Available [facility] ([facility]) [address] [place], [address], 01/25/2024 08:08:47 01/21/20 24 01/22/2024 FORTUNATO W/REF LAURA FORTUNATO direct POSITI VE negati ve abnormal Not Available [facility] ([facility]) [address] [place], [address], 01/25/2024 08:08:48 01/21/20 24 01/21/2024 ALLER GENS, ZONE 8 class description COMMEN T Level s of Speci fic IgE Class Descr iptio n of Class ----- ----- ----- ----- ----- -- ----- ----- ----- ----- ----- < 0.10 0 Negat cinthya 0.10 - 0.31 0/I Equiv ocal/ Low 0.32 - 0.55 I Low 0.56 - 1.40 II Moder ate 1.41 - 3.90 III High 3.91 - 19.00 IV Very High 19.01 - 100.0 0 V Very High >100. 00 Very High Not Available [facility] ([facility]) [address] [place], [address], 01/25/2024 08:08:49 01/21/2001/25/2024 ALLER GENS, ZONE 8 H446-LqR D pteronyssinu s <0.10 Not Available [facility] ([facility]) [address] [place], [address], 01/25/2024 08:08:49 01/21/2001/25/2024 ALLER GENS, ZONE 8 Q905-FdV D farinae <0.10 Not Available [facility] ([facility]) [address] [place], [address], 01/25/2024 08:08:49 01/21/2001/25/2024 ALLER GENS, ZONE 8 T212-GyD CAT dander <0.10 Not Available [facility] ([facility]) [address] [place], [address], 01/25/2024 08:08:49 01/21/2001/25/2024 ALLER GENS, ZONE 8 C149-NfJ dog dander <0.10 Not Available [facility] ([facility]) [address] [place], [address], 01/25/2024 08:08:49 01/21/2014 0201/25/2024 ALLER GENS, ZONE 8 t144-QzJ bermuda grass <0.10 Not Available [facility] ([facility]) [address] [facility], [place], [address], 01/25/2024 08:08:49 01/21/20 24 01/25/2024 ALLER GENS, ZONE 8 g386-MuW bluegrass, [place] <0.10 Not Available [facility] ([facility]) [address] [facility], [place], [address], 01/25/2024 08:08:49 01/21/2001/25/2024 ALLER GENS, ZONE 8 y780-BaF nora grass <0.10 Not Available [facility] ([facility]) [address] [facility], [place], [address], 01/25/2024 08:08:49 01/21/2001/25/2024 ALLER GENS, ZONE 8 x114-SfC bahia grass <0.10 Not Available [facility] ([facility]) [address] [facility], [place], [address], 01/25/2024 08:08:49 01/21/20 24 01/25/2024 ALLER GENS, ZONE 8 S898-QsJ cockroach, malaysian <0.10 Not Available [facility] ([facility]) [address] [facility], [place], [address], 01/25/2024 08:08:49 01/21/2001/25/2024 ALLER GENS, ZONE 8 M169-DxL penicillium chrysogen <0.10 Not Available [facility] ([facility]) [address] [facility], [place], [address], 01/25/2024 08:08:49 01/21/20 24 01/25/2024 ALLER GENS, ZONE 8 L118-ZxI cladosporium herbarum <0.10 Not Available [facility] ([facility]) [address] [facility], [place], [address], 01/25/2024 08:08:49 01/21/2001/25/2024 ALLER GENS, ZONE 8 L308-UaC aspergillus fumigatus <0.10 Not Available [facility] ([facility]) [address] [facility], [place], [address], 01/25/2024 08:08:49 01/21/2001/25/2024 ALLER GENS, ZONE 8 Z459-PjI mucor racemosus <0.10 Not Available [facility] ([facility]) [address] [facility], [place], [address], 01/25/2024 08:08:49 01/21/2001/25/2024 ALLER GENS, ZONE 8 W137-DnP alternaria alternata 12.00 kU/L classi v abnormal Not Available [facility] ([facility]) [address] [facility], [place], [address], 01/25/2024 08:08:49 01/21/2001/25/2024 ALLER GENS, ZONE 8 K182-HnO stemphylium herbarum 0.72 kU/L classi i abnormal Not Available [facility] ([facility]) [address] [place], [address], 01/25/2024 08:08:49 01/21/2001/25/2024 ALLER GENS, ZONE 8 E479-DwV oak, white <0.10 kU/L class0 Not Available [facility] ([facility]) [address] [place], [address], 01/25/2024 08:08:49 01/21/2001/25/2024 ALLER GENS, ZONE 8 A138-QfS elm, malaysian <0.10 Not Available [facility] ([facility]) [address] [place], [address], 01/25/2024 08:08:49 01/21/2001/25/2024 ALLER GENS, ZONE 8 V808-TvD maple/box elder <0.10 Not Available [facility] ([place] [facility]) [address], [place], [address], 01/25/2024 08:08:49 01/21/2001/25/2024 ALLER GENS, ZONE 8 L453-VsO hazelnut tree <0.10 Not Available [facility] ([facility]) [address], [place], [address], 01/25/2024 08:08:49 01/21/2001/25/2024 ALLER GENS, ZONE 8 Z605-UhE hickory, white <0.10 Not Available [facility] ([facility]) [address], [place], [address], 01/25/2024 08:08:49 01/21/20 24 01/25/2024 ALLER GENS, ZONE 8 P268-HyL maple leaf sycamore <0.10 Not Available [facility] ([place] [facility]) [address], [place], [address], 01/25/2024 08:08:49 01/21/20 24 01/25/2024 ALLER GENS, ZONE 8 M761-JpZ white mulberry <0.10 Not Available [facility] ([facility]) [address], [place], [address], 01/25/2024 08:08:49 01/21/2001/25/2024 ALLER GENS, ZONE 8 R796-IqE cedar, mountain <0.10 Not Available [facility] ([facility]) [address], [place], [address], 01/25/2024 08:08:49 01/21/20 24 01/25/2024 ALLER GENS, ZONE 8 Y992-FgF sweet gum <0.10 Not Available [facility] ([facility]) [address] [facility], [place], [address], 01/25/2024 08:08:49 01/21/20 24 01/25/2024 ALLER GENS, ZONE 8 V444-VeE ragweed, short 1.96 kU/L classi ii abnormal Not Available [facility] ([facility]) [address] [facility], [place], [address], 01/25/2024 08:08:49 01/21/20 24 01/25/2024 ALLER GENS, ZONE 8 O872-OhH mugwort <0.10 kU/L class0 Not Available [facility] ([facility]) [address] [facility], [place], [address], 01/25/2024 08:08:49 01/21/20 24 01/25/2024 ALLER GENS, ZONE 8 K651-AtE plantain, korean <0.10 Not Available [facility] ([facility]) [address] [facility], [place], [address], 01/25/2024 08:08:49 01/21/20 24 01/25/2024 ALLER GENS, ZONE 8 V342-XbF pigweed, common <0.10 Not Available [facility] ([facility]) [address] [facility], [place], [address], 01/25/2024 08:08:49 01/21/20 24 01/25/2024 ALLER GENS, ZONE 8 D505-ZwX sheep sorrel <0.10 Not Available [facility] ([facility]) [address] [facility], [place], [address], 01/25/2024 08:08:49 01/21/20 24 01/25/2024 ALLER GENS, ZONE 8 G588-LiE nettle <0.10 Not Available [facility] ([facility]) [address] [facility], [place], [address], 01/25/2024 08:08:49 01/21/20 24 01/22/2024 RHEUM ATOID FACTO R (RF) rheumatoid factor (rf) <10.0 IU/mL <14.0 Not Available [facility] [address] [facility], [place], [address], 01/25/2024 08:08:51 03/09/20 24 03/10/2024 TSH+F REE T4 TSH 0.491 uIU/m L 0.450- 4.500 Not Available [facility] ([facility]) [address] [facility], [place], [address], 03/10/2024 06:20:03 03/09/20 24 03/10/2024 TSH+F REE T4 T4,free(dire ct) 0.93 NG/dL 0.82-1 .77 Not Available [facility] ([facility]) [address] [facility], [place], [address], 03/10/2024 06:20:03 03/09/20 24 03/10/2024 VITAM IN B12 AND FOLAT E vitamin B12 >2000 pg/mL 232-12 45 above high normal Not Available [facility] ([facility]) [address] [facility], [place], [address], 03/10/2024 06:20:04 03/09/20 24 03/10/2024 VITAM IN B12 AND FOLAT E folate (folic acid), serum >20.0 A serum folat e ankit ntrat ion of less than 3.1 ng/mL is consi dered to repre sent clini kimmy defic iency . Not Available [facility] ([facility]) [address] [facility], [place], [address], 03/10/2024 06:20:04 03/09/20 24 03/10/2024 IRON AND TIBC iron bind.cap.(TI BC) 424 ug/dL 250-45 0 Not Available [facility] ([facility]) [address] [facility], [place], [address], 03/10/2024 06:20:06 03/09/20 24 03/10/2024 IRON AND TIBC UIBC 352 ug/dL 131-42 5 Not Available [facility] ([facility]) [address] [facility], [place], [address], 03/10/2024 06:20:06 03/09/20 24 03/10/2024 IRON AND TIBC iron 72 ug/dL 27-159 Not Available [facility] ([facility]) [address] [facility], [place], [address], 03/10/2024 06:20:06 03/09/20 24 03/10/2024 IRON AND TIBC iron saturation 17 % 15-55 Not Available [facility] ([facility]) [address] [facility], [place], [address], 03/10/2024 06:20:06 03/09/20 24 03/10/2024 TRIIO DOTHY YAMILE E (T3), FREE triiodothyro nine (T3), free 2.1 pg/mL 2.0-4. 4 Not Available [facility] ([facility]) [address] [facility], [place], [address], 03/10/2024 06:20:07 01/19/20 24 01/02/2024 MAMMO , scree kalpesh, digit al, bilat eral No observ ation record ed. [email or web address] [facility] [address] [facility], [place], [address], 01/21/2024 11:32:34 02/16/20 24 02/16/2024 US, renal No observ ation record ed. [facility] [address] [place], [address], 03/08/2024 08:50:45 02/25/20 24 02/25/2024 MAMMO , diagn ostic , unila teral No observ ation record ed. [facility] ([facility]) [address] [place], [address], 03/04/2024 15:37:12 04/01/19 25 03/26/2024 MAMMO , diagn ostic , unila teral No observ ation record ed. [facility] [address] [place], [address], 04/22/2024 09:24:02 04/14/19 25 04/14/2024 biops y, breas t, w/ ultra sound drake nce (PROC ) No observ ation record ed. [facility] [address] [place], [address], 04/14/2024 16:46:56 04/15/19 25 04/14/2024 biops y, breas t, w/ ultra sound drake nce (PROC ) No observ ation record ed. [facility] [address] [place], [address], 04/26/2024 14:15:07 Result Notes None recorded. Problems Name Problem SNOMED Code Status Onset Date Resolution Date Notes Provider Name and Address Organization Details Recorded Time Mass of joint of right knee 9099334415 4111050 Active 2018 Maulik Bowser MD Attn: Accounting, [address] [place], [address], [facility] [place] 11:06:16 Inguinal pain 700070945 Active 2018 R>L Maulik Bowser MD Attn: Accounting, [address] [place], [address], [facility] [place] [facility] 11:08:29 Rupture of anterior cruciate ligament 347317845 Active 2018 Left knee. Occured 09/2018. Included L medial meniscus tear. Xray 11/23/2019 : mild degenera tive changes. Injectio n complete d 11/23/2019 . ROMARIO WOLF Attn: Accounting, [address] [place], [place], [address] [place] [address], [place] - [facility] 0 12:58:31 Recurren t aphthous ulcer 582597642 Active 2019 Has appointm ent with [facility] 10/2019 ROMARIO WOLF Attn: Accounting, [address] [facility], [place], [place], [address] [place] [address], [place] [facility] 0 10:21:36 Atypical squamous cells of undeterm ined signific ance on cervical Papanico laou smear 942423910 Active 2019 + ASCUS, HPV negative 12/2019. Due again for pap 12/2022. ROMARIO WOLF Attn: Accounting, [address] [place], [place], [address] [place] [address], [place] - [facility] 0 08:16:22 Thyroid nodule 679525065 Active 2021 R lobe: 2 nodules, L lobe: 1 non-calc ified nodule, moderate suspicio us, rec US at 1, 2, 3, and 3 year ROMARIO WOLF Attn: Accounting, [address] [place], [place], [address] [place] [address], [place] [facility] 2 09:28:36 Arthriti s of knee [id number] Active 2023 HUMBERTO HERRING PA-C Attn: Accounting, [address] [place], [place], [address] [place] [address], [place] [facility] 4 15:12:23 Multiple sclerosi s [id number] Active Followin g with Dr. Dangelo. No current tx. Dr. Dangelo ordered new MRI. ROMARIO WOLF Attn: Accounting, [address] [place], [place], [address] [place] [address], [place] [facility] 9 16:25:07 Cyst of Bartholi n's gland duct 55000143 Active Shalini Mackey [place], [place] [facility] 6 10:36:54 Upper respirat ory infectio n 28185617 Completed 02/08/2019 ROMARIO WOLF Attn: Accounting, [address] [place], [address], [place] [facility] 9 12:31:05 Allergic disorder of skin 756753685 Completed 02/08/2019 ROMARIO WOLF Attn: Accounting, [address] [place], [address], [place] [facility] 9 12:30:01 Cyst of vulva 46308639 Active Shalini Mackey [place] [facility] 6 10:36:54 Generali zed aches and pains 40305731 Completed 02/08/2019 ROMARIO WOLF Attn: Accounting, [address] [place], [address], [place] [facility] 9 12:30:43 Strain of neck muscle 529293487 Completed 02/08/2019 ROMARIO WOLF Attn: Accounting, [address] [place], [address], [place] [facility] 9 12:31:10 Menopaus e Active Shalini Mac[place] [facility] 6 10:36:54 Knee pain Active Shalini [place] [facility] 6 10:36:54 Myelitis 31549829 Active Shalini [place] [facility] 6 10:36:54 Menorrha mandy 180318973 Completed 02/08/2019 ROMARIO WOLF Attn: Accounting, [address] [place], [address], [place] [facility] 9 12:31:37 Breast lump 86349458 Completed 02/08/2019 ROMARIO WOLF Attn: Accounting, [address] [place], [address], [place] [facility] 9 12:30:35 Bacteria l vaginosi s 743352772 Completed 02/08/2019 ROMAROI WOLF Attn: Accounting, [address] [facility], [place], [address], [place] [facility] 9 12:30:05 Fibroade noma of breast 244799287 Active Concepción Mcconnell MD Attn: Accounting, [address] [facility], [place], [place], [address] [place] [address], [place] [facility] 6 15:41:34 Genital herpes simplex 29850703 Active Concepción Mcconnell MD Attn: Accounting, [address] [facility], [place], [address] [place] [address], [place] [facility] 6 15:41:34 External hemorrho ids 39434235 Active Alem Bradshaw PA-C Attn: Accounting, [address] [place], [place], [address] [place] [address], [place] [facility] 6 10:49:06 Essentia l hyperten eran 32201488 Active HUMBERTO HERRING PA-C Attn: Accounting, [address] [facility], [place], [place], [address] [place] [address], [place] [facility] 4 09:58:32 Hyperlip idemia 08841240 Active Alem Bradshaw PA-C Attn: Accounting, [address] [place], [place], [address] [place] [address], [place] [facility] 6 10:49:06 Insomnia 333952554 Active 2016 Alem Bradshaw PA-C Attn: Accounting, [address] [facility], [place], [place], [address] [place] [address], [place] [facility] 7 11:49:10 Numbness of hand 352632118 Active 2016 Alem Bradshaw PA-C Attn: Accounting, [address] [place], [place], [address] [place] [address], [place] [facility] 7 13:29:22 Allergic rhinitis 86229983 Active 2016 Alem Bradshaw PA-C Attn: Accounting, [address] [place], [address], [place] [facility] 7 13:29:48 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 Procedures Surgical History Date Name Laterality Status Provider Name and Address Organization Details Recorded Time 023 Hemorrhoidectomy completed Myriam Sanchez LPN PA - [facility] 04/22/2022 16:25:40 020 Date of Last Pap Smear completed Adina Wadsworth MA PA - [facility] 12/23/2022 10:52:18 019 Date of Last Mammogram completed ROMARIO WOLF Attn: Accounting,[address] [facility], [place], [address], [facility] - [facility] 02/08/2019 12:35:07 019 Most Recent Mammogram completed ROMARIO WOLF Attn: Accounting,[address] [facility], [place], [address], [facility] - [facility] 02/08/2019 12:35:44 018 IUD Removal completed Concepción Mcconnell MD Attn: Accounting,[address] [facility], [place], [address], [place] [facility] 05/16/2017 10:50:50 018 Endometrial Biopsy completed Concepción Mcconnell MD Attn: Accounting,[address] [facility], [place], [address], [place] [facility] 05/16/2017 10:50:37 993 Other completed Julio Cesar Morales MA PA - [facility] 02/01/2015 16:09:00 Imaging Results Imaging Date Name Status LastModified by Organiz ation Details LastModified Time 01/02/2024 MAMMO, screening, digital, bilateral completed [email or web address] [facility] [address] [place], [address], 01/21/2024 11:32:34 02/16/2024 US, renal completed [facility] [address] [place], [address], 03/08/2024 08:50:45 02/25/2024 MAMMO, diagnostic, unilateral completed [facility] (Rad) [address] [place], [address], 03/04/2024 15:37:12 03/26/2024 MAMMO, diagnostic, unilateral completed [facility] [address] [place] [address], [address], 04/22/2024 09:24:02 04/14/2024 biopsy, breast, w/ ultrasound guidance (PROC) completed [facility] [address] [place] [address], [address], 04/14/2024 16:46:56 04/14/2024 biopsy, breast, w/ ultrasound guidance (PROC) completed [facility] [address] [place] [address], [id number], 04/26/2024 14:15:07 Procedure Notes None recorded. Medical Equipment None Reported. Allergies No known drug allergies Medications Name Sig Start Date Stop Date Status Note LastModified by Organization Details LastModified Time cyclobenzap rine 10 mg tablet TAKE 1 TABLET BY MOUTH ONCE DAILY AT BEDTIME 05/06 completed Not Available Not Available Not Available amoxicillin 500 mg capsule Take 1 capsule every 12 hours by oral route around the clock for 5 days. 05/18 completed Not Available Not Available Not Available azelastine 0.05 % eye drops 06/03 completed Not Available Not Available Not Available nystatin 100,000 unit/mL oral suspension 06/27 completed Not Available Not Available Not Available prednisone 10 mg tablet Take 1 tablet every day by oral route for 10 days. 2024 active Not Available Not Available Not Avai lable doxycycline hyclate 100 mg capsule 05/02 completed Not Available Not Available Not Available venlafaxine 75 mg tablet Take 1 tablet twice a day by oral route for 30 days. 06/27 completed Not Available Not Available Not Available Depo-Medrol 40 mg/mL suspension for injection Take 2 mL every day by injection route. 03/09 completed Not Available Not Available Not Available trazodone 50 mg tablet Take 1 tablet every day by oral route. 08/05 completed Not Available Not Available Not Available triamcinolo ne acetonide 0.5 % topical cream APPLY CREAM TOPICALLY TWICE DAILY 05/06 completed Not Available Not Available Not Available cetirizine 10 mg tablet Take 1 tablet every day by oral route as needed for 30 days. 2024 active Not Available Not Available Not Avai lable lisinopril 20 mg-hydrochl orothiazide 12.5 mg tablet Take 1 tablet every day by oral route in the morning for 30 days. 10/26 completed Not Available Not Available Not Available ibuprofen 800 mg tablet TAKE 1 TABLET BY MOUTH THREE TIMES DAILY NEEDED FOR PAIN active Not Available Not Available No t Available Lidocaine Viscous 2 % mucosal solution Take 15 mL every 3 hours by oral route as needed for 7 days. 07/03 completed Not Available Not Available Not Available fluconazole 150 mg tablet Take 1 tablet every day by oral route as directed for 1 day. 04/29 completed Not Available Not Available Not Available hydrocodone 5 mg-acetamin ophen 325 mg tablet TAKE 1 TABLET BY MOUTH EVERY 6 HOURS NEEDED FOR PAIN 05/09 completed Not Available Not Available Not Available tretinoin 0.025 % topical cream APPLY TO THE AFFECTED AREA(S) BY TOPICAL ROUTE ONCE DAILY AT BEDTIME 05/06 completed Not Available Not Available Not Available ondansetron HCl 8 mg tablet TAKE 1 TABLET BY MOUTH EVERY 12 HOURS NEEDED FOR NAUSEA OR VOMITING 11/29 completed Not Available Not Available Not Available meloxicam 15 mg tablet Take 1 tablet every day by oral route for 30 days. active Not Available Not Available No t Available lisinopril 20 mg tablet TAKE ONE TABLET BY MOUTH ONCE DAILY 06/27 completed Not Available Not Available Not Available ceftriaxone 250 mg solution for injection Take 250 mg by injection route. 04/15 completed Not Available Not Available Not Available Anucort-HC 25 mg suppository INSERT 1 SUPPOSITO RY RECTALLY TWICE DAILY FOR 12 DAYS 2023 active Not Available Not Available Not Avai lable naproxen 250 mg tablet Take 1 tablet twice a day by oral route as needed. 05/15 completed Not Available Not Available Not Available triamcinolo ne acetonide 0.5 % topical ointment APPLY A THIN LAYER TO THE AFFECTED AREA(S) BY TOPICAL ROUTE 2 TIMES PER DAY FOR 7 DAYS 03/04 completed Not Available Not Available Not Available metronidazo le 500 mg tablet Take 1 tablet twice a day by oral route as directed for 14 days. 05/09 completed Not Available Not Available Not Available acetaminoph en 300 mg-codeine 30 mg tablet 02/13 completed Not Available Not Available Not Available fexofenadin e 180 mg tablet TAKE 1 TABLET BY MOUTH ONCE DAILY AFTER A MEAL active Not Available Not Available No t Available acyclovir 400 mg tablet TAKE 1 TABLET BY MOUTH TWICE DAILY active Not Available Not Available No t Available tretinoin 0.05 % topical cream APPLY A PEA-SIZED AMOUNT TO ENTIRE FACE AT NIGHT 05/06 completed Not Available Not Available Not Available ciprofloxac in 500 mg tablet TAKE 1 TABLET BY MOUTH TWICE DAILY FOR 10 DAYS 11/29 completed Not Available Not Available Not Available doxycycline monohydrate 100 mg tablet Take 1 tablet twice a day by oral route for 14 days. 04/15 completed Not Available Not Available Not Available tramadol 50 mg tablet 01/04 completed Not Available Not Available Not Available triamcinolo ne acetonide 0.1 % topical cream APPLY A THIN LAYER TO THE AFFECTED AREA(S) BY TOPICAL ROUTE 2 TIMES PER DAY X 7 DAYS 07/03 completed Not Available Not Available Not Available ketorolac 10 mg tablet TAKE 1 TABLET BY MOUTH EVERY 6 HOURS FOR 4 DAYS AND THEN WHEN COMPLETE START NAPROXEN FOR ANOHER 10 DAYS. DO NOT TAKE THEM AT THE SAME TIME. 11/29 completed Not Available Not Available Not Available prednisone 10 mg tablets in a dose pack Take as directed on package 2024 active Not Available Not Available Not Avai lable cyproheptad ine 4 mg tablet 08/09 completed Not Available Not Available Not Available oxycodone-a cetaminophe n 5 mg-325 mg tablet TAKE 1 TABLET BY MOUTH EVERY 6 HOURS NEEDED FOR PAIN 11/29 completed Not Available Not Available Not Available hydrocortis one 2.5 % topical cream with perineal applicator APPLY A THIN LAYER TO THE AFFECTED AREA(S) BY TOPICAL ROUTE 2-4 TIMES DAILY X 2 WEEKS 09/17 completed Not Available Not Available Not Available amoxicillin 875 mg tablet TAKE 1 TABLET BY MOUTH EVERY 8 HOURS WITH MEALS FOR 5 DAYS 11/28 completed Not Available Not Available Not Available famotidine 20 mg tablet Take 1 tablet twice a day by oral route as directed for 90 days, for urticaria . 2024 active Not Available Not Available Not Avai lable metoclopram callie 5 mg tablet TAKE 1 TABLET BY MOUTH TWICE DAILY NEEDED FOR NAUSEA 11/29 completed Not Available Not Available Not Available amlodipine 10 mg tablet Take 1 tablet every day by oral route for 30 days, for blood pressure. 2024 active Not Available Not Available Not Avai lable cephalexin 500 mg capsule TAKE 1 CAPSULE BY MOUTH EVERY 6 HOURS FOR 7 DAYS 01/20 completed Not Available Not Available Not Available triamcinolo ne acetonide 0.1 % topical ointment APPLY OINTMENT TOPICALLY UP TO TWICE DAILY TO AFFECTED AREAS OVER TRUNK AND EXTREMITI ES NEEDED. AVOID ON FACE, ARMPITS AND GROIN. LIMIT USE UP TO 2 WEEKS PER MONTH 05/06 completed Not Available Not Available Not Available ranitidine 150 mg tablet Take 1 tablet twice a day by oral route. 05/15 completed Not Available Not Available Not Available promethazin e 25 mg tablet 06/27 completed Not Available Not Available Not Available FML Forte 0.25 % eye drops,suspe nsion 06/03 completed Not Available Not Available Not Available hydrochloro thiazide 12.5 mg capsule Take 1 capsule every day by oral route. 03/04 completed Not Available Not Available Not Available lisinopril 30 mg tablet Take 1 tablet by mouth once daily 07/03 completed Not Available Not Available Not Available docusate sodium 100 mg capsule Take 1 capsule twice a day by oral route as directed for 90 days. active Not Available Not Available No t Available gabapentin 300 mg capsule Take 1 capsule 3 times a day by oral route for 30 days. 05/15 completed Not Available Not Available Not Available omeprazole 20 mg capsule,del ayed release TAKE 1 CAPSULE BY MOUTH ONCE DAILY IN THE MORNING active Not Available Not Available No t Available lisinopril 20 mg-hydrochl orothiazide 25 mg tablet TAKE 1 TABLET BY MOUTH ONCE DAILY IN THE MORNING FOR 90 DAYS 08/11 completed Not Available Not Available Not Available diclofenac sodium 75 mg tablet,dominique yed release Take 1 tablet twice a day by oral route as needed for 30 days. 02/11 completed Not Available Not Available Not Available hydroxyzine HCl 25 mg tablet 08/09 completed Not Available Not Available Not Available zolpidem 5 mg tablet Take 1 tablet every day by oral route at bedtime. 02/08 completed Not Available Not Available Not Available lisinopril 10 mg-hydrochl orothiazide 12.5 mg tablet TAKE 1 TABLET BY MOUTH ONCE DAILY DIRECTED 05/06 completed Not Available Not Available Not Available ibuprofen 600 mg tablet TAKE 1 TABLET BY MOUTH THREE TIMES DAILY NEEDED FOR PAIN 12/02 completed Not Available Not Available Not Available polyethylen e glycol 3350 17 gram/dose oral powder DISSOLVE 1 CAPFUL OF POWDER AND DRINK BY MOUTH ONCE DAILY active Not Available Not Available No t Available methylpredn isolone 4 mg tablets in a dose pack TAKE BY MOUTH DIRECTED ON INSIDE OF PACKAGE FOR 6 DAYS active Not Available Not Available No t Available albuterol sulfate HFA 90 mcg/actuati on aerosol inhaler Inhale 2 puffs every 4 hours by inhalatio n route. 08/05 completed Not Available Not Available Not Available oxybutynin chloride 5 mg tablet 02/13 completed Not Available Not Available Not Available fluticasone propionate 50 mcg/actuati on nasal spray,suspe nsion USE 1 SPRAY(S) IN EACH NOSTRIL ONCE DAILY active Not Available Not Available No t Available finasteride 5 mg tablet TAKE 1 TABLET BY MOUTH ONCE DAILY 05/06 completed Not Available Not Available Not Available loratadine 10 mg tablet Take 1 tablet every day by oral route. 05/15 completed Not Available Not Available Not Available naproxen 500 mg tablet TAKE 1 TABLET BY MOUTH TWICE DAILY WITH MEALS FOR 10 DAYS (TAKE 4 DAYS OF KETOROLAC AND THEN WHEN COMPLETE START NAPROXEN FOR ANOTHER 10 DAYS. DO NOT TAKE THEM AT THE SAME TIME. 06/30 completed Not Available Not Available Not Available amoxicillin 875 mg-potassiu m clavulanate 125 mg tablet TAKE 1 TABLET BY MOUTH EVERY 12 HOURS WITH MEALS FOR 7 DAYS 01/20 completed Not Available Not Available Not Available amoxicillin 500 mg-potassiu m clavulanate 125 mg tablet Take 1 tablet every 12 hours by oral route after meals for 10 days. 05/22 completed Not Available Not Available Not Available neomycin 3.5 mg/g-polymy suresh B 10,000 unit/g-dexa meth 0.1 % eye oint APPLY TO SKIN OF UPPER AND LOWER EYELID 3 TIMES DAILY UNTIL REDOLUTIO N. 01/20 completed Not Available Not Available Not Available clindamycin 1 % lotion APPLY LOTION EXTERNALL Y ONCE DAILY IN THE MORNING ON FACE AND NECK 05/06 completed Not Available Not Available Not Available cyclobenzap rine 5 mg tablet TAKE 1 TABLET BY MOUTH TWICE DAILY FOR 5 DAYS 11/29 completed Not Available Not Available Not Available lidocaine 3 %-hydrocort isone 0.5 % rectal cream Insert 1 applicato rful twice a day by rectal route. 09/17 completed Not Available Not Available Not Available nitrofurant oin monohydrate /macrocryst als 100 mg capsule Take 1 capsule every 12 hours by oral route for 7 days. 05/15 completed Not Available Not Available Not Available hydrochloro thiazide 12.5 mg tablet Take 1 tablet every day by oral route for 30 days, for blood pressure. 2024 active Not Available Not Available Not Avai lable GaviLyte-N 420 gram oral solution 08/05 completed Not Available Not Available Not Available hydrocortis one 25 mg-pramoxin e 18 mg rectal suppository Insert 1 supposito ry twice a day by rectal route for 7 days. 2023 active Not Available Not Available Not Avai lable Vitals Date Recorded Body height Body mass index (BMI) Body weight Heart rate Body temperature Pain severity - 0-10 verbal numeric rating [Score] - Reported Oxygen saturation Oxygen saturation in Arterial blood by Pulse oximetry Systolic blood pressure Diastolic blood pressure Provider Name and Address Organization Details Last Updated DateTime 4 165.1 cm 27.7 kg/m2 81972.0 5 g 89 /min 98.2 [degF] 0 99 % 99 % 116 mm[Hg] 75 mm[Hg] Lukas Maria MA PA - [facility] 4 11:07:57 Date Recorded Body height Body mass index (BMI) Body weight Oxygen saturation Oxygen saturation in Arterial blood by Pulse oximetry Heart rate Systolic blood pressure Diastolic blood pressure Provider Name and Address Organization Details Last Updated DateTime 4 165.1 cm 27.1 kg/m2 52506.5 6 g 99 % 99 % 73 /min 94 mm[Hg] 68 mm[Hg] India Sanchez MA PA - [facility] 4 11:05:15 Date Recorded Body height Pain severity - 0-10 verbal numeric rating [Score] - Reported Respiratory rate Body temperature Body mass index (BMI) Body weight Oxygen saturation Oxygen saturation in Arterial blood by Pulse oximetry Heart rate Systolic blood pressure Diastolic blood pressure Provider Name and Address Organization Details Last Updated DateTime 4 165.1 cm 0 18 /min 95.3 [degF] 27.9 kg/m2 18493.0 8 g 98 % 98 % 67 /min 121 mm[Hg] 73 mm[Hg] Shalini Oleary MA PA - [facility] 4 11:14:12 Date Recorded Body height Body mass index (BMI) Body weight Body temperature Oxygen saturation Oxygen saturation in Arterial blood by Pulse oximetry Heart rate Systolic blood pressure Diastolic blood pressure Provider Name and Address Organization Details Last Updated DateTime 4 165.1 cm 28.1 kg/m2 30107.1 1 g 97.2 [degF] 97 % 97 % 89 /min 132 mm[Hg] 76 mm[Hg] Gabrielle Issa MA [facility] 4 09:56:42 Date Recorded Body height Body mass index (BMI) Body weight Oxygen saturation Oxygen saturation in Arterial blood by Pulse oximetry Heart rate Systolic blood pressure Diastolic blood pressure Provider Name and Address Organization Details Last Updated DateTime 5 165.1 cm 29 kg/m2 75509.0 7 g 99 % 99 % 91 /min 128 mm[Hg] 80 mm[Hg] Adina Wadsworth MA PA - [facility] 5 12:11:05 Social History Question Answer Notes LastModified by Organizat ion Details LastModified Time Tobacco Smoking Status Never Smoker Julio Cesar Morales MA null, [place] - [facility] 02/01/2015 16:08:59 Do You Have An Advance Directive? No Information not available 02/01/2015 What Is Your Level Of Alcohol Consumption? None [email or web address] Information not available 02/01/2015 Is Blood Transfusion Acceptable In An Emergency? Yes Information not available 11/10/2015 What Is Your Level Of Caffeine Consumption? None [email or web address] Information not available 02/01/2015 How Much Tobacco Do You Chew? None [email or web address] Information not available 02/01/2015 In The 14 Days Before Symptom Onset, Have You Had Close Contact With A Laboratory-confir med COVID-19 While That Case Was Ill? No Information not available 07/03/2020 In The 14 Days Before Symptom Onset, Have You Had Close Contact With A Person Who Is Under Investigation For COVID-19 While That Person Was Ill? No Information not available 07/03/2020 Have You Been To An Area Known To Be High Risk For COVID-19? No Information not available 07/03/2020 Are You Currently Employed? No Information not available 11/10/2015 What Type Of Diet Are You Following? REGULAR [email or web address] Information not available 02/01/2015 Which Illicit Or Recreational Drugs Have You Used? 0 [email or web address] Information not available 02/01/2015 Do You Or Have You Ever Used E-cigarettes Or Vape? Never Used Electronic Cigarettes Information not available 08/10/2019 Education 2 Year College Informatio n not available 11/10/2015 What Is Your Occupation? [employer] Information not available 04/15/2018 Are There Any Guns Present In Your Home? No Information not available 02/01/2015 Hard Of Hearing Or Deaf In One Or Both Ears? No [email or web address] Information not available 02/01/2015 Legally Blind In One Or Both Eyes? No [email or web address] Information no t available 02/01/2015 Live Alone Or With Others? With Others [email or web address] Information not available 02/01/2015 Do You Have A High School Diploma Or Higher Education? Yes Information not available 07/03/2020 Do You Sometimes Have To Miss Your Medical Appointments Due To Difficult Getting Transportation? No Information not available 07/03/2020 Do You Feel Unfairly Treated Due To Things Such As Race, Age, Gender, Disability Or Some Other Reason? No Information not available 07/03/2020 Do You Feel Physically And Emotionally Safe While Living At Home? Yes Information not available 07/03/2020 Do You Feel Physically And Emotionally Safe In Your Neighborhood Or Other Public Places? Yes Information not available 07/03/2020 Do You Have A Medical Power Of Engineering Documentation Specialist? No [email or web address] Information not available 04/18/2022 What Was The Date Of Your Most Recent Tobacco Screening? 05/06/2024 [email or web address] Information not available 05/06/2024 How Many Children Do You Have? 2 [email or web address] Information not available 02/01/2015 Performs Monthly Self-breast Exam? Yes Information no t available 11/10/2015 Do You Use Protection During Sex? No Information not available 11/10/2015 What Is Your Relationship Status? Single Information not available 11/10/2015 Seat Belts Used Routinely Yes [email or web address] Information not available 02/01/2015 Are You Sexually Active? No Information not available 11/10/2015 Smoke Alarm In Home Yes [email or web address] Information not available 02/01/2015 At What Age Did You Start Smoking Tobacco? 1 [email or web address] Information not available 02/01/2015 Are You Passively Exposed To Smoke? No Information no t available 02/01/2015 Do You Or Have You Ever Used Smokeless Tobacco? Never Used Smokeless Tobacco Information not available 08/10/2019 How Much Tobacco Do You Smoke? No [email or web address] Information not available 02/01/2015 General Stress Level Low [email or web address] Information not available 02/01/2015 Do You Use Any Illicit Or Recreational Drugs? Yes Information not available 04/23/2021 Do You Use Sunscreen Routinely? No Information not available 11/10/2015 Has Tobacco Cessation Counseling Been Provided? Yes Information not available 01/21/2024 On What Date Was Tobacco Cessation Counseling Provided? 01/21/2024 Information not available 01/21/2024 How Many Years Have You Smoked Tobacco? 0 [email or web address] Information not available 02/01/2015 Do You Or Have You Ever Used Any Other Forms Of Tobacco Or Nicotine? No [email or web address] Information not available 01/01/2024 Sex: Female Functional Status Question Answer Note LastModified by [employer] ion Details LastModified Time Are you able to care for yourself? Yes [email or web address] Information not available 02/01/2015 What is your exercise level? Occasional [email or web address] Information not available 03/04/2018 Mental Status None recorded. Family History Relationship Description Onset Age of this Age Resolved Age Notes LastModified by Organization Details LastModified Time Mother Scoliosis deformity of spine [email or web address] Not available 2015 10:19:00 Brother Scoliosis deformity of spine [email or web address] Not available 2015 10:19:00 Medical History Condition Response Coronary Artery Disease N Other Y High Blood Pressure Y Atrial Fibrillation N Breast Cancer N Lung Disease N Depression N COPD N Blood Clots N Breast Problem N Anesthesia Complications N Headaches/Migraines N Anxiety Disorder N Muscle, Joint, or Bone Problems Y Infertility N Polyps N Acid Reflux (GERD) N Cancer N Stroke N Endometriosis N High Cholesterol Y Liver Disease N Headaches N Thyroid Problems N Kidney or Bladder Problems N GI Problems N Acne N Eating Disorder N Skin Problems Y Anemia N Heart Attack (AR) N Diabetes N Ovarian Cancer N Blood Transfusions N Seizures/Epilepsy N Abuse/Domestic Violence N Asthma N Allergies N Hepatitis N Heart Disease N Pre-Eclampsia N Heart Failure N Osteoporosis N Gynecological History Statement/Question Response Abnormal Pap N Date of Last Mammogram 06/11/2018 Flow Moderate Date of LMP 02/27/2022 On BCP's at Conception? N STIs/STDs Y HPV Vaccine N Duration of Flow (days) 4 Most Recent Mammogram 06/11/2018 Age at Menarche 11 Current Control Method None Age at First Child 21 Frequency of Cycle (Q days) 28 Sexually Active? N Menses Monthly N Date of Last Pap Smear 02/15/2020 Sexual Problems? N LMP Approximate Desired Control Method None Obstetrics History GPAL:G 2 P 2 0 0 2 Type Value Multiple Births 0 Full Term 2 Induced 0 Spontaneous 0 Premature 0 Living 2 Ectopics 0 Total 2 Immunizations Vaccine Type Date Status Note Provider Nam e and Address Organization Details Recorded Time tetanus toxoid, unspecified formulation 06/03/2019 completed ROMARIO WOLF Attn: Accounting,[address] [facility], [place], [address], [facility] - [place] 06/04/2019 12:10:59 Tdap 06/03/2019 completed Myriam Sanchez LPN [facility], [place] - [place] 06/21/2022 17:40:33 Past Encounters Encounter ID Performer Location Encounter Start Date Encounter Closed Date Diagnosis/Indication Diagnosis SNOMED-CT Code Diagnosis ICD10 Code Diagnosis Note [id number] ESTEFANIA Matias (Adult Med) [address] [place] [address] [id number] 0 02/01/2015 15:47:20 02/02/2015 08:18:34 Adult health examination 597070220 Z00.00 Venereal d isease screening 679918989 Z11.3 Multiple sclerosis 28498 007 G35 States there is imaging that shows plaques - she will sign POOL [id number] ESTEFANIA Matias (Adult Med) [address] [place] [address] [id number] 0 04/14/2015 11:22:29 04/14/2015 13:28:13 Venereal disease screening 282214649 Z11.3 After discussion about her HSV-2 serum test, I believe that she is now paranoid that she possibly is having a herpes outbreak. We discussed at length that the HSV-2 serum test only tests exposure She appeared to be much more calm after discussion Still requesting culture of vagina. Cyst of Ba rtholin's gland duct 66880733 N75.0 Will begin with stiz baths No need for abx at this time If cyst grows or persists, RTC 2 weeks Upper resp iratory infection 74205385 J06.9 Allergic d isorder of skin 520534259 L23.9 [id number] ESTEFANIA Matias (Adult Med) [address] [place] [address] [id number] 05/05/2015 12:09:13 05/08/2015 13:06:24 Cyst of vulva 26134223 N90.7 Likely left vulvar cyst - not bartholin' s gland cust upon further evaluation . Patient would like to f/u with an OBGYN to be certain and to discuss that if it causes too much pain to have this removed Advised to make an appointmen t with Dr. Romero or Dr. Oliva [id number] ESTEFANIA Matias (Adult Med) [address] [place] [address] [id number] 0 10/13/2015 09:56:13 10/13/2015 12:29:58 Generalized aches and pains 60358698 R52 Strain of neck muscle 36 9200741 S16.1XXA Menopause 334631237 N95. 1 Knee pain 36588783 M25.5 61 Will begin with knee xray - abnormalit y palpated for the protrusion of right knee - will refer to ortho once imaging received [id number] MICHELLE Gee (TRENCH DIGGER HELPER) [address] [place] [address] [id number] 0 11/10/2015 10:09:15 11/10/2015 15:14:02 [id number] MD Lulu Rivera (TRENCH DIGGER HELPER) [address] [place] [address] [id number] 0 12/01/2015 11:13:04 12/01/2015 15:16:36 Menorrhagia 599873792 N92.0 Gynecologi c examination 64641278 Z01.411 Breast lump 52042925 N63 Bacterial vaginosis 4197 35704 N76.0 [id number] MICHELLE Masters (TRENCH DIGGER HELPER) [address] [place] [address] [id number] 0 12/29/2015 10:16:57 01/02/2016 12:53:50 Bacterial vaginosis 538929877 N76.0 Fibroadeno ma of breast 296914009 D24.9 counseled about it. Genital he rpes simplex 10158563 A60.9 [id number] ESTEFANIA Matias (Adult Med) [address] [place] [address] [id number] 01/05/2016 09:40:02 01/05/2016 10:54:17 External hemorrhoids 25307173 K64.4 Will refer to GI Essential hypertension 59246044 I10 Patient states that she has taken BP medication in the past - and feels that she needs to begin againWill initiate lisinopril 20mg QDDiscusse d a low salt diet, staying away from lunch meats, canned foodsAdvis ed to walk 30 minutes/da y 5 days/week RTC 2 weeks for Hyperlipidemia 48926502 E78.5 No ASCVD benefit at this time Allergic rhinitis 453429 04 J30.9 [id number] ESTEFANIA Matias (Adult Med) [address] [place] [address] [id number] 0 02/12/2016 13:50:07 02/13/2016 13:09:07 Body mass index 25-29 - overweight 399967833 Z68.29 Advised 30 minutes of exercise 5 days/week Advised to not drink her calories Advised 3 balanced meals/day with plenty of fruits and vegetables External hemorrhoids 239 58565 K64.4 Followed by GI 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 Spoke with Neli Crooks PA-C and advised to refer to dentist - no oral surgeron takes Medicaid Advised that lisinopril likely is not causing this and she should f/u with her dentist concerning this issueAdvis ed to try [employer] [facility] Multiple sclerosis 69366 007 G35 States that she needs to see neurologis t still and make an appointmen t [id number] MD Lulu Rivera (TRENCH DIGGER HELPER) [address] [place] [address] [id number] 0 03/26/2016 15:08:57 04/16/2016 16:15:04 Pain in pelvis 25811461 R10.2 [id number] ESTEFANIA Matias (Adult Med) [address] [place] [address] [id number] 0 06/27/2016 09:09:42 06/27/2016 09:42:21 Essential hypertension 66705113 I10 138/90 - basically WNL and NAD, but based on BP at home will increase to lisinopril 30mg Discussed a low salt diet, staying away from lunch meats, canned foodsAdvis ed to walk 30 minutes/da y 5 days/week RTC 2-3 weeks for BP check Multiple sclerosis 61260 007 G35 Given new referral to neurology and advised to make an appointmen tWill restart gabapentin Advised that she really needs to see neurology - her pain is likely 2/2 MS Insomnia 535933189 G47.0 0 Will initiate trazodone qPMRTC 2-3 weeks for f/Hebert screen time within an hour of bedNo caffeine close to bed timeTalked about good sleep hygeine and going to bed at the same time every night and waking up at the same time every morningFin d calming activies to do at night like crafting, reading, meditation [id number] ESTEFANIA Matias [facility] (Peds) [address] [place] [address] [phone] 0 08/05/2016 09:05:06 08/07/2016 15:48:02 Multiple sclerosis 74105654 G35 Given new referral to neurology and advised to make an appointmen t - attached documents neededc/w gabapentin Advised that she really needs to see neurology - her pain is likely 2/2 MS Patient states that Dr. Hernandez needs per previous records - will send those right now as well Numbness of hand 5983394 04 R20.0 Will begin with wrist splints and nerve conduction Advised to RTC after completing nerve conduction Essential hypertension 50406498 I10 98/76 WNL and NAD - patient states that PB at home running 120s/80s Discussed a low salt diet, staying away from lunch meats, canned foodsAdvis ed to walk 30 minutes/da y 5 days/week External hemorrhoids 239 66780 K64.4 Followed by GI Allergic rhinitis 448628 04 J30.9 [id number] MD Lulu Rivera [facility] (TRENCH DIGGER HELPER) [address] [place] [address] [id number] 0 09/17/2016 12:47:10 09/17/2016 13:31:38 Menorrhagia 256155206 N92.0 d/w patient PAP, Nuswab result, lab work and ultrasound result. Uterine leiomyoma 770716 05 D25.9 Counseled about it. Since IUD not working. Counseled patient about different forms of treatment methods including Depo Provera, Nexplanon, Depo lupron -- etc.She refused any form of hormonal treatment because of h/o MS. Counseled about myomectomy vs hysterecto my. Counseled about surgical options. She say she is done with kids. She say she is not decided AND SHE WILL COME BACK IN 1 WEEK AND LET US KNOW AT THAT TIME.. She wanted to think about it. Counseled thoroughly about the above mentioned procedures and its risks. Will check CBC. [id number] MD Lulu Rivera (TRENCH DIGGER HELPER) [address] [place] [address] [phone] 0 09/27/2016 11:01:04 09/27/2016 11:31:21 Follow-up consultation 349169780 Z71.2 Uterine leiomyoma 601203 05 D25.9 Today counselled patient again with options of surgical treatment since she is refusing medical management . Discussed about uterine artery embolizati on, endometria l ablation. Counselled thoroughly about both procedures . She decided to go for [place]. Refer to interventi onal radiologis t.Offered doing endometria l biopsy. Counselled about it. She agreed. RTC in 1 week for EMB. Leukocytes in urine 2757 55435 R82.71 [id number] ESTEFANIA Matias (Adult Med) [address] [place] [address] [id number] 0 10/01/2016 10:59:45 10/01/2016 18:04:10 Overweight 058530101 E66.3 Advised 30 minutes of exercise 5 days/week Advised to not drink her calories Advised 3 balanced meals/day with plenty of fruits and vegetables Multiple sclerosis 54288 007 G35 Patient has an appointmen t at end of October for eval Patient states that Dr. Hernandez needs per previous records - will send those right now as well Essential hypertension 03832481 I10 124/78 WNL and NAD Discussed a low salt diet, staying away from lunch meats, canned foodsAdvis ed to walk 30 minutes/da y 5 days/week Will refer to cardiology at this time - per patient's request Ulnar neuropathy 5809384 05 G56.20 mild - will EMG results to neurology referral - she is already referred for MS [id number] MD Lulu Rivera (TRENCH DIGGER HELPER) [address] [place] [address] [phone] 0 05/02/2017 10:02:43 05/02/2017 11:58:32 Vaginal discharge 194015523 N89.8 Uterine leiomyoma 014793 05 D25.9 Patient referred to interventi onal radiologis t. Counseled patient about importance of following with interventi onal radiologis t. Also counseled about importance of doing endometria l biopsy . Patient say she will be back in 2 weeks for endometria l biopsy and she say she also wanted to get IUD removal at that time. Urinary tr act infectious disease 45392465 N39.0 Counseled about it. Bacterial vaginosis 4197 91876 N76.0 Counseled about it. Increased blood pressure 72816923 R03.0 Advised patient to go to ER since patient c/o GUERRERO. Patient verbalized understand ing. [id number] ESTEFANIA Matias (Adult Med) [address] [place] [address] [phone] 0 05/15/2017 10:44:36 05/15/2017 11:22:59 Essential hypertension 55243482 I10 144/88 - not WNL and NADWill add HCTZ 12.5mg to lisinopril 30mg Discussed a low salt diet, staying away from lunch meats, canned foodsAdvis ed to walk 30 minutes/da y 5 days/week Check BP QDDiscusse d DASH diet Advised 30 minutes of exercise minimum dailyAdvis ed tobacco, alcohol, caffeine all increase BPAdvised goal for BP is <140/90 Atopic dermatitis 407599 01 L20.9 Apply plenty of lotion on your skin at least 3 times every day regardless if there are any dry spots or not. Eucerin, Aveeno, Lubriderm, and Vaseline Intensive Care are examples of good lotions to use; but any lotion that is fragrance free may be acceptable . Use the prescribed steroid cream twice daily for one week for excessivel y dry areas. You must stop applying the steroid cream after one week and give your skin a one week break before apply it again. RTC if no improvemen t [id number] MD Lulu Rivera (TRENCH DIGGER HELPER) [address] [place] [address] [phone] 0 05/16/2017 10:03:22 05/16/2017 11:02:50 Removal of intrauterine device 43299706 Z30.432 Refer to procedure note. Abnormal u terine bleeding 2388595064 9100 N93.9 Counseled about the procedure EMB and its risks including infection, bleeding, damage to internal organs, indicated procedures . Patient verbalized understand ing. Consent signed which is in chart. Advised patient to go to ER if bleeding more than a pad per hour, fever > 100.4, and severe pain. Uterine leiomyoma 927168 05 D25.9 Patient referred to interventi onal radiologis t. Counseled patient about importance of following with interventi onal radiologis t. [id number] Candace Sutherland MA [facility] (TRENCH DIGGER HELPER) [address] [place] [address] [phone] 0 03/04/2018 12:14:41 03/05/2018 11:09:57 Gynecologic examination 85012445 Z01.411 Age appropriat e counseling done. Uterine leiomyoma 771002 05 D25.9 Patient referred to interventi onal radiologis t. Counseled patient about importance of following with interventi onal radiologis t. Female pel reuben inflammatory disease 544484910 N73.9 Counseled about it. Safe sex counseling and use of condoms. Advised patient no intercours e until treatment. Notified patient that Partner need to be treated.No tified patient to stay in room to get ceftriaxon e shot. She left with out getting shot. Called patient at her phone number and notified patient to come back to get ceftriaxon e shot. Patient say she will be back around 1300. Waited but patient did not come back.Urine test negative in office today, Breast lump 67522449 N63 .0 Counseled about it. Abnormal u terine bleeding 2939898810 9100 N93.9 d/w patient pathology report. She say her bleeding decreased after removal of IUD. [id number] MICHELLE Belcher (TRENCH DIGGER HELPER) [address] [place] [address] [id number] 03/05/2018 12:12:30 03/09/2018 14:37:34 Female pelvic inflammatory disease 885968400 N73.9 [id number] ESTEFANIA Matias (Adult Med) [address] [place] [address] [id number] 0 03/05/2018 12:39:47 03/06/2018 10:21:29 Essential hypertension 90963099 I10 120/82 - WNL and NADc/w lisinopril 30mg Discussed a low salt diet, staying away from lunch meats, canned foodsAdvis ed to walk 30 minutes/da y 5 days/week Check BP QDDiscusse d DASH diet Advised 30 minutes of exercise minimum dailyAdvis ed tobacco, alcohol, caffeine all increase BPAdvised goal for BP is <140/90 Pain in right knee 46790 27219 72516 M25.561 Inguinal pain 649102550 R10.2 right side [id number] MD Lulu Rivera (TRENCH DIGGER HELPER) [address] [place] [address] [id number] 0 04/15/2018 10:36:21 04/15/2018 15:40:51 Female pelvic inflammatory disease 417764795 N73.9 Improved. Counseled about it. Safe sex counseling and use of condoms. Candidiasis of vagina 72 876465 B37.3 Counseled about it. Uterine leiomyoma 337063 05 D25.9 Patient referred to interventi onal radiologis t. Counseled patient about importance of following with interventi onal radiologis t. [id number] MD Lulu Wong (Adult Med) [address] [place] [address] [id number] 0 07/07/2018 10:28:08 07/08/2018 11:40:19 Essential hypertension 50789448 I10 Cont meds [place] int of right knee 7825061359 0275095 M25.861 Multiple sclerosis 43925 007 G35 Generalize d aches and pains 15412959 R52 Insomnia 002786784 G47.0 0 Inguinal pain 928883947 R10.2 [id number] ROMARIO WOLF (Adult Med) [address] [place] [address] 02/08/2019 12:15:04 02/09/2019 11:23:14 Multiple sclerosis 79292650 G35 Hx of MS, states she was diagnosed back in 2012.Saw a neurologis t for awhile after initial diagnosis but doesn't tend to have flare-ups so was lost to follow-up these past couple years.She feels like she would like to get back in touch with neurologis t.- Neurology referral sent [place] int of right knee 3633947219 8787239 M25.861 Hx of right knee pain and bony deformity of right knee x years.Righ t knee xray 05/2018 showed exostosis/ osteochond real coming off the medial femoral condyle, MRI recommende d but was never ordered Was supposed to see Ortho but never made it to the appointmen t.On PE: Bony, mobile deformity palpated medial to the medial femoral epicondyle . TTP- Ortho referral sent for issue of both L and R knee Rupture of anterior cruciate ligament 716902564 S83.511D September 2018, she fell at work directly on her left knee. She was worked up initially by her work for [employer] was told she tore her ACL and medial meniscus. Court is now telling her that her injury is no longer going to be covered by [employer]. and that she needs to have issue handled by her own insurance. Complains of anterior, medial left knee pain.Compl ains of swelling and instabilit y.Wears knee brace to help with stability. Completed 4-6 weeks of PT after injury, continues to do knee exercises at home.On PE: L Knee. Anterior, medial aspect TTP with mild-moder ate swelling. Slightly decreased ROM. Slightly positive anterior drawer sign.- Will put in referral for orthopedic s- Will start naproxen 500 mg BID- COntinue to do stretches and exercises at home- Continue to wear brace for stability- Continue to ice and elevate leg when at rest Acute pharyngitis 004423 003 J02.9 Complainin g mostly of a sore throat x 2 weeks.Her grandson, who she spends lots of time with, was just diagnosed with strep throat so patient is concerned. Admits to nasal congestion , clear/yell ow rhinorrhea , pressure in her ears bilaterall y, and muscle aches.Rapi d strep test is negative in the office- Will start amoxicilli ng x 5 days due to length of symptoms- Provided her with care instructio shi for home [id number] ROMARIO WOLF (Adult Med) [address] [place] [address] 05/18/2019 12:50:14 05/19/2019 11:41:32 Multiple sclerosis 30037383 G35 Hx of MS, states she was diagnosed back in 2012.Saw a neurologis t for awhile after initial diagnosis but doesn't tend to have flare-ups so was lost to follow-up these past couple years.She feels like she would like to get back in touch with neurologis t.Saw Dr. Dangelo 03/11, MRI was ordered Rupture of anterior cruciate ligament 306404357 S83.511D September 2018, she fell at work directly on her left knee. She was worked up initially by her work for [employer] was told she tore her ACL and medial meniscus. Court later told her that her injury is no longer going to be covered by [employer]. and that she needs to have issue handled by her own insurance. Complains of anterior, medial left knee pain.Compl ains of swelling and instabilit y.Wears knee brace to help with stability. Completed 4-6 weeks of PT after injury, continues to do knee exercises at home.Ortho pedics would not see her regarding her L knee sine that was not on the original orderOn PE: L Knee. Anterior, medial aspect TTP with mild-moder ate swelling. Slightly decreased ROM. Slightly positive anterior drawer sign.- provided her with new referral, advised her to call and schedule apt.- d/c naproxen, take IBU 800 PRN for pain and swelling- COntinue to do stretches and exercises at home- Continue to wear brace for stability- Continue to ice and elevate leg when at rest [place] int of right knee [id number] 6260956 M25.861 Hx of right knee pain and bony deformity of right knee x years.Righ t knee xray 05/2018 showed exostosis/ osteochond real coming off the medial femoral condyle, MRI recommende d but was never ordered Saw Ortho for this issue, was told she will likely require a surgery but patient wants her L knee issue dealt with first since more problemati cOn PE: Bony, mobile deformity palpated medial to the medial femoral epicondyle . TTP- f/u with orthopedic s Acquired pes planus 5 22285 M21.40 Complainin g of right medial arch painOn PE: slight decrease in arch of feet bilaterall yLikely due to putting more pressure on R knee since L knee injury 8 months ago- advised her to wear arch supports- advised her to wear good house shoes around the house- apply ice to the area PRN- consider imaging in future if no improvemen t Adult heal th examination 022296050 Z00.00 PHQ 05/02 was negative in office today (1 out of 27) [id number] ROMARIO WOLF (Adult Med) [facility] [place] [address] 06/04/2019 11:10:26 06/07/2019 11:15:45 Recurrent aphthous stomatitis 745840987 K12.0 Reports recurrent, painful mouth lesions. On exam: aphthous ulcer present to left side of tongue past last molar. Pt has phone images of multiple ulcers across the left side of her tongue and on her right side gingiva which are resolved today. Multiple dental caries. - Will check vitamin B12 and folate levels today, in addition to HIV, transgluta minase, sed rate, CBC, iron, TIBC, and ferritin - Will provide pt viscous lidocaine to help with pain. - Advised pt to f/u with dentist regarding the issue. Multiple sclerosis 59670 007 G35 Hx of MS, states she was diagnosed back in 2012.S[address] Dangelo 03/11, MRI was ordered. Pt states she completed this but we do not have results. Pt states she will call and have results sent to her and our office. Laceration of finger 274 283235 S61.011A Finger laceration yesterday after handling craft cutter.1 suture placed in ED yesterday. On exam: 1cm laceration across medial aspect of left thumb over DIP joint (in anatomic position). Clean, dry, intact, and healing well. [address].- Pt to f/u in 1 week for suture removal. [id number] ROMARIO WOLF (Adult Med) [address] [place] [address] [id number] 0 08/10/2019 10:26:19 08/11/2019 16:08:47 Localized eruption of skin 137494070 R21 Complainin g of rash x 1 day.She first noticed the rash while taking a shower yesterday. The rash is located on the left side of her abdomen going towards her back.She described the rash as multiple fluid filled blisters, the blisters are tense when palpated.T he rash is not painful or pruritic. Admits to mild tingling.P er picture she sent: 1 large tense fluid filled blister lucero 3-5 smaller blisters nearbyRece ntrasheeda Sellers has also been complainin g of recurrent mouth ulcersLabs completed: + Sed rateDdx: shingles, contact dermatitis from poison juvencio, bug/spider bite, bullous pemphigoid , mucous membrane pemphigoid - please come to office to complete additional rheumatolo gy labs including FORTUNATO and CRP- will send oral steroids, anti-hista mine, and topical steroids to pharmacy- advised her to not pop or drain the blister- will place referral for rheumatolo gy- f/u in 1 week [id number] ROMARIO WOLF (Adult Med) [address] [place] [address] [phone] 0 08/18/2019 10:14:06 08/19/2019 19:16:29 Recurrent aphthous stomatitis 118823602 K12.0 Reports recurrent, painful mouth lesions.Al so now complainin g of rash on trunk with tense blisters Labs: Normal CBC, VIt. B12, folate, HIV, TG, Iron levelsSed Rate elevated, + FORTUNATO, + ARC WELDER APPRENTICE, + Valerio, and + antichroma tin - referral for rheumatolo gy already placed, provided her with the referral, she is to call and get appointmen t scheduled Localized eruption of skin 698657071 R21 At last visit, complainin g of rash in the LLQ of abdomen, tense fluid filled blisters.S he took oral steroids and is using topical steroid creamToday , she states the rash seems to be improving. The tense blisters popped on their own and drained clear fluid. There is no new developmen t of other blisters in the same area or elsewhere on her body. Admits to surroundin g skin being pruritic now after the blistered opened up.Recentl gloria Sellers has also been complainin g of recurrent mouth ulcersLabs : Normal CBC, VIt. B12, folate, HIV, TG, Iron levels Sed Rate elevated, + FORTUNATO, + ARC WELDER APPRENTICE, + Valerio, and + antichroma tinDdx: lupus, shingles, contact dermatitis from poison juvencio, bug/spider bite, bullous pemphigoid , mucous membrane pemphigoid - take cetirizine and use cool washcloth to help with pruritus- provided her copies of her most recent labs work- encouraged her to call and make appointmen t with rheumatolo gy- continue to monitor area affected by rash, make sure skin continues to heal Rupture of anterior cruciate ligament 996882228 S83.511D September 2018, she fell at work directly on her left knee. She was worked up initially by her work for [employer] was told she tore her ACL and medial meniscus. Court later told her that her injury is no longer going to be covered by [employer]. and that she needs to have issue handled by her own insurance. Complains of anterior, medial left knee pain. Complains of swelling and instabilit y.Wears knee brace to help with stability. Currently following with Ortho and completing PT again, she is to f/u again with Ortho 08/2019 Screening for malignant neoplasm of breast [id number] Z12.39 06/11/18: Mammogram abnormal, f/u US normal and rec. annual screening- provided Verito with new mammogram order today in the office, she is to call and get appointmen t scheduled Uterine leiomyoma 454365 05 D25.9 Hx of uterine leiomyomaU sed to follow with Dr. Davis of having 2 menstrual cycles per month right now, denies menorrhagi a or pain- discussed US of uterus and possible referral to OBGYN for tx discussion , patient would like to wait for now Essential hypertension 53917412 I10 BP Today: 102/70c/w lisinopril 30 mg Discussed DASH diet Advised 30 minutes of exercise minimum daily Advised tobacco, alcohol, caffeine all increase BP Advised goal for BP is <140/90 Contact office if BP is > 140/90 consistent ly DIscussed consequenc es of HTN including kidney, eye, heart damage, stroke, and even - Refills already sent- if BP remains low at f/u visit, consider decreasing dose [id number] ROMARIO WOLF (Adult Med) [address] [place] [address] 02/15/2020 09:03:54 02/16/2020 12:02:44 Screening for malignant neoplasm of breast [id number] Z12.39 06/11/18: Mammogram abnormal, f/u US normal and rec. annual screening- provided Verito with new mammogram order today in the office, she is to call and get appointmen t scheduled Gynecologi c examination 80008050 Z01.419 Patient states having thin white to off white discharge daily for 2 months. Denies pruritis, dysuria, burning, discomfort , and being sexually active.Pre viously had BV and vaginal candidiasi s in the past.Physi kimmy exam pertinent for moderate amount of thin white discharge in the vaginal canal.Ddx: Leukorrhea vs Vaginal Candidiasi s vs. Bacterial vaginosisP atient also has not had a pap done since 2016. -Nuswab done and will call patient with results; if positive will prescribe medication -Cervical cancer screening with co-testing done Acne [id number] L70.9 Patient has had increasing slightly inflamed closed comedones around the perioral area in the mask distributi on. She has tried several remedies including benzoyl peroxide without any relief.-Or dered tretinoin topical cream to be applied once at night-Educ ated patient to continue using the benzoyl peroxide in the morning along with a moisturizi ng cream-Info rmed patient that it can take up to 3 months for the acne to clear. [id number] ROMARIO WOLF (Adult Med) [address] [place] [address] 07/03/2020 09:33:36 07/04/2020 10:48:32 Essential hypertension 37949871 I10 BP Today: 150/96 and 158/100 Currently taking lisinopril 30 mg She does not check BP at home but is asymptomat ic. Admits to gaining 15-20 pounds over the last 1-2 years due to knee injury, not currently working, and eating less healthy. Discussed DASH diet Advised 30 minutes of exercise minimum daily Advised tobacco, alcohol, caffeine all increase BP Advised goal for BP is <140/90 Contact office if BP is > 140/90 consistent ly DIscussed consequenc es of HTN including kidney, eye, heart damage, stroke, and even - change lisinopril 30 mg to lisinopril 20 mg-hctz 25 mg QD - BP kit sent to pharmacy, encouraged to check daily, contact office if BP remains high - encourage healthy eating and exercise to help with weight loss - f/u in 1 month Allergic disposition 609 071636 T78.40XA Requesting allergy testing due to hx of skin reactions to unknown substances - referral placed Acne 54552701 L70.9 Requesting referral to see Dermatolog y for her acne She has tried several remedies including benzoyl peroxide and tretinoin which have only provided mild relief. - dermatolog y referral sent Overweight 714936115 E66 .3 Advised decreased portion sizes, good food choices, limited eating out or fast food and eliminate soda and juice from diet. Advised physical activity daily and offered encouragem ent to continue with positive changes made so far. Adult heal th examination [id number] Z00.00 PHQ 2 was negative in office today (0 out of 27) [id number] ROMARIO WOLF (Adult Med) [address] [place] [address] 08/11/2020 12:07:13 08/14/2020 10:35:31 Essential hypertension 50561251 I10 BP Today: 110/74 Currently taking lisinopril 20 - hctz 25 mg Was unable to get BP cuff after our last visit Complainin g of dizziness upon standing and with fast head movements x 1 month Discussed DASH diet Advised 30 minutes of exercise minimum daily Advised tobacco, alcohol, caffeine all increase BP Advised goal for BP is <140/90 Contact office if BP is > 140/90 consistent ly DIscussed consequenc es of HTN including kidney, eye, heart damage, stroke, and even - change lisinopril 20 mg-hctz 25 mg QD to lisinopril 20 - hctz 12.5 mg due to slightly low BP - BP kit order printed today and given to patient to take to pharmacy - encourage healthy eating and exercise to help with weight loss Visual impairment 740708 003 H54.7 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, complains of intermitte nt blurriness to the visual field Seeing neurology at [facility], has a lumbar puncture planned next week as they are completing a work-up for MS Admits to having some memory issues over the past 6 months, states nothing too serious but will notice herself forgetting to accomplish things or misplacing things often - discussed memory loss in detail with patient today including possible causes, she states her mood is overall decent and not currently depressed, admits to mild inattentio n at times - encouraged her to mention this to neurology at her f/u visit [id number] ROMARIO WOLF (Adult Med) [address] [place] [address] 10/26/2020 14:36:29 10/30/2020 12:16:56 Essential hypertension 68531045 I10 BP Today: 118/80 Currently taking lisinopril 20 - hctz 12.5 mgRange at home: 95-120/70- 80.Complai kalpesh of dizziness upon standing and with fast head movements Discussed DASH diet Advised 30 minutes of exercise minimum daily Advised tobacco, alcohol, caffeine all increase BP Advised goal for BP is <140/90 Contact office if BP is > 140/90 consistent ly DIscussed consequenc es of HTN including kidney, eye, heart damage, stroke, and even - change to lisinopril 10 mg-hctz 12. 5 mg QD- return to office or call if dizziness does not get better [id number] ROMARIO WOLF (Adult Med) [address] [place] [address] 02/13/2021 09:39:50 02/14/2021 08:15:22 Atypical squamous cells of undetermined significance on cervical Papanicolaou smear 656190473 R87.610 Last pap in 01/2020 with ASCUS, negative HPV. Patient here today for repeat pap smear.- Discussed need for repeat in 3 years (2022) rather than annually today Vaginal di scharge problem 100924826 N89.9 Pt states her last Pap in 01/2020 was abnormal. Showed ASCUS with negative HPV. She endorses vaginal discharge and pelvic pain x 1.5 months. Discharge is thin, white, and non-odorou s. She notes her discharge is greater in volume than normal. - Check nuswab today to r/o any infection Uterine leiomyoma 075237 05 D25.9 Hx of uterine leiomyomaU sed to follow with Dr. Schreiber notes a history of fibroids as well. Menstrual cycles are regular, but heavy. She is not currently on any contracept ion. She would like to have imaging to see if fibroids have grown. - Will order TVUS to monitor fibroid growth- CBC and iron studies to check for any anemia given heavy periods Adult heal th examination 469087091 Z00.00 - due for annual screening labs- Pt would like ABO and COVID antibody levels Dizziness 312774737 R42 She also complains of increasing episodes of vision changes. She notes a history of MS, diagnosed many years ago at [facility]. She states for example, when trying to read the word dog , she cannot see the d but is able to see the og . She endorses feeling out of it when these episodes occur, but denies feeling off balance or syncopal. She sometimes gets headaches with these episodes. Episodes previously occurred every 3-6 months, however, she had 2 episodes in December and another yesterday. She took her blood pressure while symptomati c yesterday which was normal. Denies any loss of vision, chest pain, palpitatio ns, SOB, or syncope with these episodes. Denies any history of heart issues and gets her eyes checked regularly by optometry. She has previously seen Neurology for these symptoms and had a brain MRI done. She was supposed to have a lumbar puncture but did not complete due to fear of the procedure. - Instructed patient to call Neurology and schedule follow up with possible lumbar puncture- Will obtain brain MRI result from [facility]- If no Neuro follow up for several months, consider referral to cardiology for holter monitor to r/o arrhythmia as cause of these episodes. Screening for malignant neoplasm of breast [id number] Z12.39 06/11/18: Mammogram abnormal, f/u US normal and rec. annual screening - provided Verito with new mammogram order today in the office, she is to call and get appointmen t scheduled [id number] ROMARIO WOLF (Adult Med) [address] [place] [address] 03/30/2021 10:30:05 04/02/2021 11:25:11 Uterine leiomyoma 72482095 D25.9 Hx of uterine leiomyoma, Used to follow with VMenstrual cycles are regular, but heavy. She is not currently on any contracept ion.Recent ly completed US of uterus to evaluate fibroids, Wants to discuss treatment options today.- discussed treatment options including hormone therapy to help with heavy bleeding/c ramping, non-hormon al therapy to help decrease size of fibroids, and possible surgical treatment for therapy- she wants to speak with credentialing specialist further before making an option, she is not interested in started control again- referral placed Acute sinusitis 74941079 J01.90 Complainin g of nasal congestion , yellow rhinorrhea , ear pressure and popping x 1.5 weeks. Has tested negative for COVID. Supportive care at home not helping.- medication s sent to pharmacy to treat sinusitis - Drink lots of fluids, whatever you like except for alcoholic beverages. - Run a cool-mist humidifier in your room at night. - For sore throat, gargle warm salt water. - Get extra rest and do not over-exert yourself. Rupture of anterior cruciate ligament 894577090 S83.511D Work injury on September 2018, she fell at work directly on her left knee. She was worked up initially by her work for workman's comp., was told she tore her ACL and medial meniscus. Court later told her that her injury is no longer going to be covered by workman's comp. and that she needs to have issue handled by her own insurance. Complains of anterior, medial left knee pain. Complains of swelling and instabilit y. Wears knee brace to help with stability. Currently following with Ortho, did not end up having surgery due to Ortho's recommenda tions. Requesting new parking placard, last parking placard was from orthopedic s.- will provide 6 month temporary and then reassess if still needed [id number] MD Lulu Deluca (Adult Med) [address] [place] [address] 04/11/2021 15:25:26 04/12/2021 08:51:26 Serous otitis media of bilateral ears [id number] 323434 H65.93 Left ear apperas to be normal, right era has perfortion with minimal congestion . She agreed ENT referral and continue ABO, F/U with ENT or PCP. [id number] MD Lulu Deluca (Adult Med) [address] [place] [address] 04/18/2021 11:08:53 04/19/2021 16:51:56 Serous otitis media of bilateral ears [id number] 558725 H65.93 Left ear apperas to be normal, right era has perfortion with minimal congestion . She agreed ENT referral and continue ABO, F/U with ENT or PCP. [id number] ROMARIO WOLF (Adult Med) [address] [place] [address] 04/23/2021 10:33:47 04/23/2021 19:55:17 Serous otitis media of bilateral ears 8407607214 290307 H65.93 F/u from severe sinus infection and ear infection with complicati on of R TM ruptureER visit to [facility] a 1-2 weeks agoSarahi saw another physician in the office for a f/u appointmen t, she was still having issues with ear pain and pressure so her antibiotic s were extended at that time.She is still taking the antibiotic s currently, the ear pain has mostly resolved but still having issues with intermitte nt pressure and popping of her R ear. She takes daily allergy medication including cetirizine and flonase. She has a referral to ENT, plans on scheduling appointmen t with them soon.- c/w abx until gone, start short course of steroids to help with inflammati on- schedule ENT f/u- c/w allergy medication Insomnia 739300727 G47.0 0 Admits to having issues falling asleep and staying asleep over the last few months, wonders if it has something to do with being lakisha-menop ausal since her menstrual cycle is starting to skip monthsShhuey has not tried anything to help her sleep, denies other reasons for insomnia including pain, racing thoughts, anxiety, depression , and nocturiaAd mits to snoring at night, waking up feeling like she is gasping for air, and daytime somnolence - encouraged her to try melatonin OTC to start, either 5 or 10 mg tablets- discussed referral for sleep study, she wants to try medication first, will f/u with me if medication does not help- Take bedtime medication before or at 10 PM- Turn off all electronic s (TV, computers, cell phone, Ipads.) an hour before bedtime- Develop bedtime rituals (e.g., reading relaxing materials) - Avoid anything that will energize you or activate you- Remove clocks from bedroom or turn clocks around out of sight- Sleep 6-8 hours a night (this is when short-term memory turns into long-term memory) [id number] Rufus Gasca MD [facility] [address] [place] [address] 05/22/2021 09:56:17 05/22/2021 13:30:17 External hemorrhoids 03219158 K64.4 1) less time on toilet2) sitz baths daily and PRN3) increase water intake4) miralax daily5) fiber daily6) no phone/read ing on toilet7) return to office 8 weeks if no improvemen t. Internal h emorrhoids grade II 800807236 K64.1 [id number] ROMARIO WOLF [facility] (Adult Med) [address] [place] [address] 05/29/2021 09:18:32 05/30/2021 05:45:52 Rupture of anterior cruciate ligament 876342609 S83.511D Hx of L ACL and meniscus tear s/p fall at work back in 2019, worked up initially by her work for [employer]., Court later told her that her injury is no longer going to be covered by [employer]. and that she needs to have issue handled by her own insurance. Was following with Ortho, did not end up having surgery due to Ortho's recommenda tions. Last saw ortho in 2019.Now complainin g of new L knee pain and swelling x2 weeks. It was very painful to walk and put weight on, she rates the initial pain 10/10. She denies any new injury at that time. The pain and swelling have decreased but she still rates her pain a 5/10. She is able to walk with minimal pain now, but still painful to walk up stairs. She denies redness or warmth of the joint.PE: TTP over medial and lateral joint lines, +Hector's and +anterior drawer - short course steroids for inflammati on- discussed exercises that may not cause as much knee pain (may want to avoid bike and stair stepper)- f/u with ortho if pain does not improve or worsens Candidal vulvovaginitis 37302802 B37.3 Pt complains of vaginal itching and thick vaginal discharge, was just recently on abx for an ear infection in the last few months- rx sent to [facility] [id number] ROMARIO WOLF ([facility]) [address] [place] [address] 07/16/2021 09:19:11 07/17/2021 17:30:53 Allergic disposition 355581959 T78.40XA 2 weeks ago she developed pressure and popping in both ears, postnasal drainage, scratchy throat. She called the office and was started on cetirizine daily and feels like it hasn't helped. Denies ear pain, congestion , runny nose, cough, fever, itchy or watery eyes, hearing changes. Right TM perf in March.PE : bilateral TM opacified with possible fluid behind the ears- start fexofenadi ne 180 mg, stop cetirizine - renew flonase- medrol 4 mg dose pack for acute nasal mucosol swelling- amoxicilli n- advised patient to begin w/ fexofenadi ne, flonase, and medrol dose pack. if symptoms do not resolve, can begin abx. [id number] Rufus Gasca MD [facility] [address] [place] [address] 07/24/2021 10:05:13 07/27/2021 13:56:45 Internal hemorrhoids grade I 451739825 K64.0 continued improvemen t with lifestyle changes. Only occasional flares of irritiatio n. No indication to go to OR at this juncture, will continue on lifestyle modificati on and fiber/denia lax. Return to office should her symptoms change. [id number] ROMARIO WOLF (Adult Med) [address] [place] [address] 11/29/2021 09:35:03 11/30/2021 14:53:48 Gastroesophageal reflux disease without esophagitis 476207965 K21.9 Pt reporting bi-weekly episodes of night-time dysphagia and pyrosis.Guerrero s not tried any OTC treatments for sxDenies odynophagi a, CP, SOB, n/v, coughing, abdominal pain, diarrhea, constipati on, dysuria, frequency. -Start famotidine 20mg for sx relief-Pt educated about food/drink to avoid, avoid eating before bed, elevate head of bed, alcohol and smoking avoidance- RTC if sx do not improve with this med Dysfunctio n of eustachian tube 39593986 H69.93 Pt presenting with ear pain R>L x 3 weeks in addition to associated sinus pressure and nasal congestion On PE, fluid noted behind TM's bilaterall y in addition to erythemato us and edematous nasal mucosaPt denying fever, mucopurule nt nasal discharge; not concerned for active sinus infection at this time and will avoid abx-Start flonase for ETD-Start medrol dose pack to relieve inflammati on and congestion -RTC if sx do not improve Goiter 0624910 E04.9 Remembers being told she had a goiter in the past, had US done on neck over 10 years agoAdmits to choking sensation when eating/swa llowing-Th yroid US ordered; will contact pt with results and will proceed accordingl y [id number] ROMRAIO WOLF (Adult Med) [address] [place] [address] 05/09/2022 12:22:59 05/13/2022 15:00:52 Overweight 624472981 E66.3 BMI today: 28.7Advise d decreased portion sizes, good food choices, limited eating out or fast food and eliminate soda and juice from diet. Advised physical activity daily and offered encouragem ent to continue with positive changes made so far. External hemorrhoids 239 90716 K64.4 Hemorrhoid ectomy on 04/22/2022 , has not followed up with surgeon because lost contact informatio n. Doing well overall, pain only present with bowel movements still. Requesting IBU- patient need F/u with the surgeon- pain management : removal of Hydrocodon , substituti ng with Ibuprofen 800mg tablets Hypothyroidism 19164865 E03.9 Patient had a visit with endocrinol ogist on 04/29/2022 US shows multinodul ar goiter, not big enough for biopsy, F/u Us in 6 monthsPati ent still tired, low energy at this time, started Purely Holistic Thyroid capsule with iodine yesterday- c/w medication , get labs completed in 6 weeks Gastroesop hageal reflux disease without esophagitis 632116480 K21.9 Her episodes of night-time dysphagia are getting better.Den ies odynophagi a, CP, SOB, n/v, coughing, abdominal pain, diarrhea, constipati on, dysuria, frequency. - c/w famotidine 20mg for sx relief-Pt educated about food/drink to avoid, avoid eating before bed, elevate head of bed, alcohol and smoking avoidance Acute pancreatitis 64836 6007 K85.91 Acute pancreatit is and possible gallstones found accidental ly while at the hospitalUS normal, CT showed possible gallstones , HIDA scan normal-GI referral for F/u- patient education an pancreatit is and gallstones Genital he rpes simplex 78870732 A60.9 Requesting refill today, doing well on maintenanc e medication Allergic disposition 609 273315 T78.40XA Well controlled with Flonase-re filling today Allergic rhinitis 698373 04 J30.9 Patient says it is mild at this moment-ref ill today Essential hypertension 19510714 I10 BP 100/66 today- has been on the lower side but not this low at prior visits- encouraged to keep an eye on BP at home and if levels continue to be this low, consider decrease in medication Depression screening 171 769635 Z13.31 PHQ 2/9 was negative in office today (0 out of 27) [id number] ROMARIO WOLF (Adult Med) [address] [place] [address] 04/12/2022 08:32:47 04/16/2022 10:18:47 Overweight 043578581 E66.3 Advised decreased portion sizes, good food choices, limited eating out or fast food and eliminate soda and juice from diet. Advised physical activity daily and offered encouragem ent to continue with positive changes made so far. Vaginal di scharge problem 728755241 N89.9 Complainin g of vaginal discharge, foul vaginal odor and a tingling/b urning sensation x 2 months. Has had history of BV in the past but does not seem to get it often. Hx of HSV but no current outbreak. Denies urinary symptoms. No concern for STDs.- urine dipstick with LE and blood, will send for culture- swab to check for vaginal infections completed today- rx for metronidaz ole over the weekend to tx empiricall y for BV until results are back Hemorrhoids 99286295 K64 .9 Hx of hemorrhoid s, saw Dr. Gasca and discussed surgery but wanted to try supportive care first with sitz baths, OTC topical medication , fiber and miralax. At least one a month she is having a flare of a large hemorrhoid that seems to be falling out of the rectum. It is very painful even when passing gas.- can send prescripti on strength topical medication , use TUCKS- c/w supportive care- get back to see Dr. Gasca if that severe, surgery may be the best option since impacting her daily life [id number] Rufus Gasca MD [facility] [address] [place] [address] 04/18/2022 10:46:11 04/18/2022 14:44:18 Bleeding external hemorrhoids 12451047 K64.4 patient with symptomati c hemorrhoid s despite best medical therapy. In need of resection. Risks include bleeding and sphincter injury. Patient in agreement with plan of care. Will proceed as soon as is convenient . [id number] ROMARIO WOLF (Adult Med) [address] [place] [address] 09/17/2022 09:25:48 09/18/2022 13:45:55 Depression screening 904368422 Z13.31 PHQ was negative in office today (0 out of 27) Pain of bi lateral hands [id number] 1967502 M79.641 Advised to follow-up with rheumatolo gy for previous positive results and to investigat e current symptoms. Cramp in lower limb 1356 29752 R25.2 Advised to follow-up with neurology for continued MS observatio n and to see if beginning treatment would be appropriat e.- already on multiple medication s, rec. to increase her water consumptio n and can try 1 tbsp of pickle juice a day to help Low back strain 29658457 1 S39.012A Has outstandin g order for xray, discussed completing that as well as continuing supportive measures of muscle relaxants, applying heat, and massages/s tretches. Will RTC if worsens to consider further work-up and PT.-contin ue cyclobenza herb Gastroesop hageal reflux disease without esophagitis 213757980 K21.9 Her episodes of night-time dysphagia are getting worse. - c/w famotidine 20mg BID- start omeprazole 20mg QAM, 6 wk prescripti on to gain control of current exacerbati on-Pt educated about food/drink to avoid, avoid eating before bed, elevate head of bed, alcohol and smoking avoidance Constipation 87047141 K5 9.00 Requesting refills on her docusate sodium which helps her constipati on greatly Multiple sclerosis 18850 007 G35 Hx of MS, states she was diagnosed back in 2012.Saw [address] Dangelo 03/11, MRI was ordered. Pt states she completed this but we do not have results.[facility]rology at [facility] 05/2020 for temporary vision loss, notes a lumbar puncture was recommende d but declined due to prior bad experience . Lost to f/uAdmits to generalize d weakness and intermitte nt paresthesi as- rec. f/u with MS, likely needs new work-up Anti-nucle ar factor detected 374432965 R76.8 Labs in 2019 showed + FORTUNATO, ARC WELDER APPRENTICE, Valerio and antichroma tin after patient complainin g of new rash, joint pain, and ulcers within the mouth. Saw rheumatbernardo sethi who recommende d for her to f/u in 6 months after getting labs completed but was lost to f/u- referral placed today Overweight [id number] E66 .3 BMI today: 28.5Advise d decreased portion sizes, good food choices, limited eating out or fast food and eliminate soda and juice from diet. Advised physical activity daily and offered encouragem ent to continue with positive changes made so far. [id number] ROM[facility] WOLF (Adult Med) [address] [place] [phone] 12/23/2022 10:41:03 12/27/2022 15:03:31 Abdominal bloating [id number] R14.0 Complainin g of abdominal bloating and stiffness in the epigastric region after eating food, even small amounts. Feels like this started months ago but feels like it is getting gradually worse. Takes famotidine and omeprazole for GERD.- will get records from [facility]- c.w GERD and constipati on medication - discussed concern for possible food intoleranc e, rec. eliminatio n diet Constipation [id number] K5 9.00 Doing better on medication - Requesting refills on her docusate sodium which helps her constipati on greatly- request colonoscop y records Hypothyroidism 86548315 E03.9 Patient had a visit with endocrinol ogist on 04/29/2022 US shows multinodul ar goiter, not big enough for biopsy, F/u Us in 6 monthsPati ent still tired, low energy at this time, started on Purely Holistic Thyroid capsule with iodine but never started medication - recheck and then likely start medication Overweight 612300136 E66 .3 BMI today: 28.1Advise d decreased portion sizes, good food choices, limited eating out or fast food and eliminate soda and juice from diet. Advised physical activity daily and offered encouragem ent to continue with positive changes made so far. Gastroesop hageal reflux disease without esophagitis 721561388 K21.9 Her episodes of night-time dysphagia are getting better.Den ies odynophagi a, CP, SOB, n/v, coughing, abdominal pain, diarrhea, constipati on, dysuria, frequency. - c/w famotidine 20mg for sx relief-Pt educated about food/drink to avoid, avoid eating before bed, elevate head of bed, alcohol and smoking avoidance Genital he rpes simplex 84785445 A60.9 Requesting refill today, doing well on maintenanc e medication Allergic disposition 609 350388 T78.40XA Well controlled with Flonase-re filling today Allergic rhinitis 588127 04 J30.9 Patient says it is mild at this moment-ref ill today Essential hypertension 29379867 I10 BP 114/74- has been on the lower side but not this low at prior visits- encouraged to keep an eye on BP at home and if levels continue to be this low, consider decrease in medication Perimenopa usal disorder 539824887 N95.9 LMP was 02/2023, admits to start of hot flashes and night sweats the last few months plus decreased mood, anhedonia, and nightmares . She finds herself feeling more down with no specific cause, she worries she was not a good enough mother for her children even though she knows she did the best she could. Her mood worsened after she injured her leg and stopped working due to the injury, feels like she is lacking purpose right now. Trying to lean on her yarsanism to help. Denies active SI/HI.- labs ordered today- had long discussion about her mood changes since those seem most severe at this time, not interested in starting medication at this time but will think about it- return if symptoms do not improve Acute pancreatitis 898249 5664 K85.91 Acute pancreatit is and possible gallstones found accidental ly while at the hospital in the pastUS normal, CT showed possible gallstones ,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
--- OUTSIDE RECORDS SUMMARY | 2024-05-09 21:32 | XMS_ITS | Clinical Summary ---
Author Organization [facility] Address [address] [place] [id number] Care Team Providers Care Industrial Energy Engineer Name Role Phone Maulik Bowser MD Primary Care Provider [phone] Allergies No known active allergies Medications lisinopril 30 MG tablet 02/28/2019 Active acyclovir 400 MG tablet 06/04/2019 Active Active Problems Problem Noted Date Diagnosed Date Right knee pain 01/08/2016 Social History Tobacco Use Types Packs/Day Years Used Date Smoking Tobacco: Never Smokeless Tobacco: Never Alcohol Use Standard Drinks/Week Comments No 0 (1 standard drink = 0.6 oz pur e alcohol) AUDIT-C Answer Date Recorded Frequency of Alcohol Consumption Never 03/04/2019 Average Number of Drinks Not on file 019 Frequency of Binge Drinking Not on file 02/21 Comments Unknown Sex and Gender Information Value Date Recorded Sex Assigned at Not on file Legal Sex Female 9:41 PM CDT Gender Identity Not on file Sexual Orientation Not on file Last Filed Vital Signs Vital Sign Reading Time Taken Comments Blood Pressure 140/88 09/22/2019 9:13 AM CDT Pulse 82 09/22/2019 9:13 AM CDT Temperature - - Respiratory Rate - - Oxygen Saturation - - Inhaled Oxygen Concentration - - Weight 73.9 kg (163 lb) 09/22/2019 9:13 AM CDT Height 165.1 cm (5' 5 ) 06/21/2019 10:27 AM CDT Body Mass Index 27.12 06/21/2019 10:27 AM CDT Plan of Treatment Health Maintenance Due Date Last Done Comments Cervical Cancer Screening Pa p Smear (Age 30 to 64) Every 3 Years 1968 Colorectal Cancer Screening Colonoscopy (10 Years) 1968 Annual Physical 10/24/1971 Hepatitis C 1986 DTaP, Tdap and Td Vaccines ( 1 - Tdap) 10/24/1987 Hepatitis B Vaccines (1 of 3 - 19+ 3-dose series) 10/24/1987 Cervical Cancer Screening Pa p with HPV Testing (Age 30 to 64) Every 5 Years 1998 Cervical Cancer Screening with HPV 1998 Mammogram Screening 2008 Zoster Vaccines (1 of 2) 2018 COVID-19 Vaccine ( - 2023-2 5 season) 2023 Influenza Adult (#1) 2023 Meningococcal B Vaccine Aged Out No l onger eligible based on patient's age to complete this topic Meningococcal Vaccine Aged Out No leon devon eligible based on patient's age to complete this topic Pneumococcal Vaccine: Pediat rics (0 to 5 Years) and At-Risk Patients (6 to 64 Years) Aged Out No longer eligible b ased on patient's age to complete this topic RSV Immunizations Under 20 Months Aged Out No longer eligible based on patient's age to complete this topic Insurance Advance Directives Documents on File Type Date Recorded Patient Electronic Pagination System Operator Expl anation Legal Documents 02/14/2020 12:50 PM RECVD & CMPLTD ON 12/21/19 ATTY REQ. FOR HB BILLS FOR [employer] FOR XEBEE RECORDS Care Teams Industrial Energy Engineer Relationship Specialty Start Date End Date Maulik Bowser MD [address] [phone] PCP - General INTERNAL MEDICINE 09/23/18
--- OUTSIDE RECORDS SUMMARY | 2024-05-09 21:32 | XMS_ITS | Referral Summary ---
Author Organization [facility] Address [address] [place] [address] Care Team Providers Care Calker Name Role Phone Iván Poole MD Primary Care Provider [phone] Allergies No known active allergies Medications Medication Sig Dispensed Refills Start Date End Date Status hydrOXYzine (ATARAX) 25 MG tabletIndications:Bed bug bite, initial encounter TAKE 1 TABLET BY MOUTH TWICE DAILY FOR 7 DAYS 14 tablet 12/15/2018 Active Active Problems No known active problems Social History Tobacco Use Types Packs/Day Years Used Date Smoking Tobacco: Never Smokeless Tobacco: Never Alcohol Use Standard Drinks/Week Comments Yes 0 (1 standard drink = 0.6 oz pur e alcohol) social Inadequate Housing Answer Date Recorded Social Determinants: Housing (Overall Score Help er) 0 11/04/2018 Sexually Active Control Partners Comments Not Currently Sex and Gender Information Value Date Recorded Sex Assigned at Not on file Gender Identity Not on file Sexual Orientation Not on file Last Filed Vital Signs Vital Sign Reading Time Taken Comments Blood Pressure 135/86 08/27/2018 10:43 AM CDT Pulse 73 08/27/2018 10:43 AM CDT Temperature 36.6 C (97.8 F) 08/27/2018 10:43 AM CDT Respiratory Rate 14 08/27/2018 10:43 AM CDT Oxygen Saturation 100% 08/27/2018 10:43 AM CDT Inhaled Oxygen Concentration - - Weight 71.9 kg (158 lb 6.4 oz) 08/27/2018 10:43 AM CDT Height 165.1 cm (5' 5 ) 08/27/2018 10:43 AM CDT Body Mass Index 26.36 08/27/2018 10:43 AM CDT Plan of Treatment Not on file Care Teams Calker Relationship Specialty Start Date End Date Iván Poole MD [address] [place], [place] [id number] PCP - General 09/26/21
--- OUTSIDE RECORDS SUMMARY | 2024-05-09 21:32 | XMS_ITS | Patient Health Summary ---
Author Organization [facility] [employer] Address [address] [place] [address] Care Team Providers Care Commercial Producer Name Role Phone Bebe Yarbrough PA-C Primary Care Provider + Note from [facility],non-owned Affiliates and Associated Physician Practices is amultiple site organization consisting of ambulatory clinics and hospital sitesin [place], [place], [place] and [place]. This disclosure is being madepursuant to the Care Everywhere program and may not contain all information available regarding this patient. Last updated 17.[facility] Allergies No known active allergies Medications * Be aware that medications may not be up to date on this document. Alwaysverify current medications with the patient. * lisinopril (PRINIVIL; ZESTRIL) 30 MG tablet(Started 02/28/2019) * acyclovir (Zovirax) 400 MG tablet(Started 11/27/2022) Take 1 (one) tablet by mouth 2 times daily * docusate sodium (Colace) 100 MG capsule(Started 12/16/2022) * fexofenadine (Debbi) 180 MG tablet(Started 11/27/2022) TAKE 1 TABLET BY MOUTH ONCE DAILY AFTER A MEAL FOR 30 DAYS * fluticasone propionate (Flonase) 50 MCG/ACT nasal spray(Started 05/09/2022) * omeprazole (PriLOSEC) 20 MG capsule(Started 12/10/2022) TAKE 1 CAPSULE BY MOUTH ONCE DAILY IN THE MORNING * polyethylene glycol 3350 (Miralax) 17 GM/SCOOP powder(Started 11/12/2022) * amLODIPine (Norvasc) 10 MG tablet(Started 05/06/2024) Take 1 tablet every day by oral route for 30 days, for blood pressure. * cetirizine (ZyrTEC) 10 MG tablet(Started 05/06/2024) Take 1 tablet every day by oral route as needed for 30 days. * famotidine (Pepcid) 20 MG tablet(Started 05/06/2024) Take 1 tablet twice a day by oral route as directed for 90 days, for urticaria. * hydroCHLOROthiazide 12.5 MG(Started 05/06/2024) Take 1 tablet every day by oral route for 30 days, for blood pressure. * predniSONE (Deltasone) 10 MG tablet(Started 05/06/2024) * clindamycin (Cleocin) 1 % lotion(Started 05/07/2024) Apply to affected area on face and neck every MORNING. 30 day supply. 11 refills by 05/07/2025 * tretinoin (Retin-A) 0.05 % cream(Started 05/07/2024) Apply pea-sized amount to ENTIRE face at NIGHT. 30 days supply. 11 refills by 05/07/2025 * triamcinolone acetonide (Kenalog) 0.1 % ointment(Started 05/07/2024) Apply to affected areas over trunk & extremities up to twice daily as needed. Avoid on face/armpits/groin. Limit use to up to 2 weeks per month. 30 day supply. 11 refills by 05/07/2025 * finasteride (Proscar) 5 MG tablet(Started 05/07/2024) Take 1 (one) tablet by mouth once daily 30 day supply. 3 refills by 05/07/2025 Ended Medications* tretinoin (Retin-A) 0.05 % cream(Started 12/20/2022) (Discontinued) Apply pea-sized amount to ENTIRE face at NIGHT. 30 days supply. 5 refills by 12/20/2023 * triamcinolone acetonide (Kenalog) 0.1 % ointment(Started 12/20/2022) (Discontinued) Apply to affected areas over trunk & extremities up to twice daily as needed. Avoid on face/armpits/groin. Limit use to up to 2 weeks per month. 30 day supply. 1 refill by 12/20/2023 * clindamycin (Cleocin) 1 % lotion(Started 12/20/2022)(Discontinued) Apply to affected area on face and neck every MORNING. 30 day supply. 5 refills by 12/20/2023 * finasteride (Proscar) 5 MG tablet(Started 05/02/2023)(Discontinued) Take 1 (one) tablet by mouth once daily 30 day supply. 11 refills by 05/01/2024 * tretinoin (Retin-A) 0.025 % cream(Started 05/03/2023)(Discontinued) Pea sized amount to entire face at night. 30 days supply. 11 refills by 05/02/2024 Active Problems Problem Noted Date Diagnosed Date Hirsutism 05/03/2023 Post-inflammatory hyperpigmentation 12/26/2022 Other specified dermatitis 12/26/2022 Genital herpes simplex 12/20/2022 Acne vulgaris 12/20/2022 Paresthesias 05/22/2020 12/20/2022 Recurrent aphthous ulcer 08/20/2019 023 Multiple sclerosis 10/02/2016 12/20/2022 Social History Tobacco Use Types Packs/Day Years Used Date Smoking Tobacco: Never Smokeless Tobacco: Never Tobacco Cessation:Counseling Given: Not Answered Alcohol Use Standard Drinks/Week Comments Not Currently 0 (1 standard drink = 0.6 oz pur e alcohol) Sex and Gender Information Value Date Recorded Sex Assigned at Not on file Gender Identity Not on file Sexual Orientation Not on file Last Filed Vital Signs Vital Sign Reading Time Taken Comments Blood Pressure - - Pulse - - Temperature - - Respiratory Rate - - Oxygen Saturation - - Inhaled Oxygen Concentration - - Weight 74.8 kg (165 lb) 11/23/2019 3:26 PM CDT Height 165.1 cm (5' 5 ) 11/23/2019 3:26 PM CDT Body Mass Index 27.46 11/23/2019 3:26 PM CDT Procedures * VITAMIN D 25-HYDROXY(Performed 05/07/2024) Performed for Chronic idiopathic urticaria * MS DRAIN/INJECT LARGE JOINT/BURSA(Performed 11/23/2019) Performed for Chronic pain of left knee * XR KNEE LEFT 4VW OR MORE(Performed 11/23/2019) Performed for Left knee pain, unspecified chronicity Results * (ABNORMAL) VITAMIN D 25-HYDROXY (05/07/2024 10:52 AM FLOOR [employer]) Vitamin D, 25 Hydroxy 14.1(L) 30.0 - 80.0 ng/mL 05/07/2024 12:12 PM [employer]LO[employer] [facility] Comment: The recommendations for 25-Hydroxy Vitamin D clinical decision points are as follows: Deficient: <20.0 ng/mL Insufficient: 20.0 - 29.9 ng/mL Sufficient: 30.0 - 100.0 ng/mL Potential Toxicity: >100 ng/mL Reference: The Endocrine Society Clinical Practice Guidelines. 2011 If the 25-Hydroxy Vitamin D results are inconsitent with clinical evidence, it is recommended that follow-up testing using a method such as LC/MS/MS be performed to confirm the result. Blood BLOOD SPECIMEN / Unknown Lab Venipuncture / Unknown 05/07/2024 10:52 AM [employer]LO[employer] 05/07/2024 11:25 AM [employer]LO[employer] Supa Jamil MD LAB - CHEMISTRY [facility] Organization Address City/State/ZIP Co de Phone Number [facility] [address] [place] [phone], [facility] [phone] * MS DRAIN/INJECT LARGE JOINT/BURSA (11/23/2019 5:02 PM CDT) Narrative Malcolm Andrew PA-C - 11/23/2019 5:02 PM CDT Malcolm Andrew PA-C 11/24/2019 9:35 AM Orthopaedic Surgery Procedure Note Diagnosis: Left knee osteoarthritis Procedure: Injection of Corticosteroid into the left knee. Indications: Verito Sanchez is a 49 year old female who has left knee pain and arthritis. Procedure Details: Ms. Sanchez was informed of her condition, and the potential benefits of injection of steroid. The patient was counseled as to the risks of the procedure. She was understanding and agreeable. The patient was placed into the seated position. The area was prepped with beta-dine. Utilizing the anterolateral portal, the patient's left knee was injected with 2 cc of 3 mg/ml Celestone and 3 cc 1% Lidocaine without epinephrine into the joint. The needle was removed and the needle site dressed with a semi-sterile bandage. The patient tolerated the procedure well. Remainder of plan per note. Malcolm Andrew PA-C 11/23/2019 5:03 PM Malcolm Andrew PA-C PROCEDURE/MINOR S URGICAL ORDERABLES * XR KNEE LEFT 4VW OR MORE (11/23/2019 3:18 PM CDT) Anatomical Region Laterality Modality Lower Extremity Radiographic Rosa ging 11/23/2019 3:19 PM CDT Impressions 11/23/2019 3:20 PM CDT Mild degenerative change. *Reading Radiologist: Nancy Trejo on 11/23/2019 at 3:20 PM Narrative 11/23/2019 3:20 PM CDT Left knee 4 views INDICATION: Left knee pain 4 views of the left knee are provided including AP weightbearing, nonweightbearing, lateral and sunrise views. AP weightbearing and nonweightbearing views of the right knee included as well. There is medial compartment and patellofemoral compartment narrowing on the left. No fracture nor effusion is noted. There is no subluxation of the patella. No destructive lesion is noted. Similar mild degenerative changes are seen on the right with focal exostosis of the distal right medial femur. Procedure Note Nancy Trejo MD - 11/23/2019 Left knee 4 views INDICATION: Left knee pain 4 views of the left knee are provided including AP weightbearing, nonweightbearing, lateral and sunrise views. AP weightbearing and nonweightbearing views of the right knee included as well. There is medial compartment and patellofemoral compartment narrowing on the left. No fracture nor effusion is noted. There is no subluxation of the patella. No destructive lesion is noted. Similar mild degenerative changes are seen on the right with focal exostosis of the distal right medial femur. IMPRESSION Mild degenerative change. *Reading Radiologist: Nancy Trejo on 11/23/2019 at 3:20 PM Malcolm Andrew PA-C DIAGNOSTIC IMAGIN G ORDERABLES Care Teams Commercial Producer Relationship Specialty Start Date End Date Bebe Yarbrough PA-C [address] [place] [phone] PCP - General 05/03/22
--- OUTSIDE RECORDS SUMMARY | 2024-05-09 21:32 | XMS_ITS | Encounter Summary ---
Author Organization [facility] Address [address] [place] [address] Care Team Providers Care French Lecturer Name Role Phone Bebe Yarbrough PA-C Primary Care Provider + Encounter Details Date Type Department Care Team (Latest Contact Info) Description 05/07/2024 10:35 AM SENIOR BACKUP ADMINISTRATOR - 05/07/2024 11:59 PM [facility] Hospital Encounter [facility] OP DRAW STATION [address] [place] [phone] Discharge Disposition: Home or Self Care Social History Tobacco Use Types Packs/Day Years Used Date Smoking Tobacco: Never Smokeless Tobacco: Never Alcohol Use Standard Drinks/Week Comments Not Currently 0 (1 standard drink = 0.6 oz pur e alcohol) Sex and Gender Information Value Date Recorded Sex Assigned at Not on file Gender Identity Not on file Sexual Orientation Not on file documented as of this encounter Medications at Time of Discharge Medication Sig Dispensed Refills Start Date End Date acyclovir (Zovirax) 400 MG tablet Take 1 (one) tablet by mouth 2 times daily 11/27/2022 amLODIPine (Norvasc) 10 MG tablet Take 1 tablet every day by oral route for 30 days, for blood pressure. 05/06/2024 cetirizine (ZyrTEC) 10 MG tablet Take 1 tablet every day by oral route as needed for 30 days. 05/06/2024 clindamycin (Cleocin) 1 % lotionIndications:Acn e vulgaris Apply to affected area on face and neck every MORNING. 30 day supply. 60 mL 11 05/07/2024 docusate sodium (Colace) 100 MG capsule 12/16/2022 famotidine (Pepcid) 20 MG tablet Take 1 tablet twice a day by oral route as directed for 90 days, for urticaria. 05/06/2024 fexofenadine (Debbi) 180 MG tablet TAKE 1 TABLET BY MOUTH ONCE DAILY AFTER A MEAL FOR 30 DAYS 11/27/2022 finasteride (Proscar) 5 MG tabletIndications:Hir sutism Take 1 (one) tablet by mouth once daily 30 day supply. 90 tablet 3 05/07/2024 05/02/2025 fluticasone propionate (Flonase) 50 MCG/ACT nasal spray 05/09/2022 hydroCHLOROthiazide 12.5 MG Take 1 tablet every day by oral route for 30 days, for blood pressure. 05/06/2024 lisinopril (PRINIVIL; ZESTRIL) 30 MG tablet 02/28/2019 omeprazole (PriLOSEC) 20 MG capsule TAKE 1 CAPSULE BY MOUTH ONCE DAILY IN THE MORNING 12/10/2022 polyethylene glycol 3350 (Miralax) 17 GM/SCOOP powder 11/12/2022 predniSONE (Deltasone) 10 MG tablet 05/06/2024 tretinoin (Retin-A) 0.05 % creamIndications:Acne vulgaris Apply pea-sized amount to ENTIRE face at NIGHT. 30 days supply. 45 g 11 05/07/2024 triamcinolone acetonide (Kenalog) 0.1 % ointmentIndications:O ther eczema Apply to affected areas over trunk & extremities up to twice daily as needed. Avoid on face/armpits/groin. Limit use to up to 2 weeks per month. 30 day supply. 80 g 11 05/07/2024 documented as of this encounter Plan of Treatment Upcoming Encounters Date Type Department Care Team (Late st Contact Info) Description 08/06/2024 9:40 AM CDT Office Visit [facility] - Dermatology [address] [place] [address], [place] [phone] Supa Jamil MD [address] [place] [address] [place] [address] 09/27/2024 10:00 AM CDT Office Visit [facility] - Rheumatology [address] [place] [address], [place] [phone] Harshad Trevino MD [address] [place] [phone] documented as of this encounter Visit Diagnoses Not on filedocumented in this encounter Care Teams French Lecturer Relationship Specialty Start Date End Date Bebe Yarbrough PA-C [address] [place] [phone] PCP - General 05/03/22 documented as of this encounter
--- OUTSIDE RECORDS SUMMARY | 2024-05-09 21:32 | XMS_ITS | Clinical Summary ---
Author Organization [facility] Address [address] [place] [address] Care Team Providers Care Channeling Machine Runner Name Role Phone Iván Poole MD Primary Care Provider +1- [phone] Allergies No known active allergies Medications Medication [...] Sexual Orientation Not on file Obstetrics History Last Filed Vital Signs Vital Sign Reading [...] 08/27/2018 10:43 AM CDT Plan of Treatment Health Maintenance Due Date Last Done Comments Depression Screening 1980 DTaP/Tdap/Td Vaccine (1 - Tdap) 10/24/1987 Hepatitis B Vaccine (1 of 3 - 19+ 3-dose series) 10/24/1987 Breast Cancer Screening 2008 CT Colonography 2013 Cologuard 2013 Colonoscopy 2013 Colorectal Cancer Screen 2013 Fecal Occult Blood 2013 Sigmoidoscopy 2013 Pneumococcal Vaccine 50+ (1 of 1 - PCV) 2018 Shingles Vaccine (1 of 2) 2018 COVID-19 Vaccine (1 - 2023-2 5 season) 2023 Influenza Vaccine (#1) 2023 HPV Vaccine Aged Out No longer eligi ble based on patient's age to complete this topic Hepatitis A Vaccine Aged Out No longe r eligible based on patient's age to complete this topic Meningococcal Serogroup B Vaccine Aged Out No longer eligible based on patient's age to complete this topic Meningococcal Vaccine Aged Out No leon devon eligible based on patient's age to complete this topic Care Teams Channeling Machine Runner Relationship Specialty Start Date End Date Iván Poole MD [address] [place] [address] PCP - General 09/26/21
--- OUTSIDE RECORDS SUMMARY | 2024-05-09 21:32 | XMS_ITS | Clinical Summary ---
Author Organization [facility] Address [address] [place] [address] Care Team Providers Care Clinical Services Director Name Role Phone Bebe Yarbrough PA-C Primary Care Provider + Source Comments [facility],non-owned Affiliates and Associated Physician Practices is amultiple site organization consisting of ambulatory clinics and hospital sitesin [place], [place], [place] and [place]. This disclosure is being madepursuant to the Care Everywhere program and may not contain all information available regarding this patient. Last updated 17.[facility] Allergies No known active allergies Medications * Be aware that medications may not be up to date on this document. Alwaysverify current medications with the patient. Medication Sig Dispensed Refills Start Date End Date Status lisinopril (PRINIVIL; ZESTRIL) 30 MG tablet 02/28/2019 Active acyclovir (Zovirax) 400 MG tablet Take 1 (one) tablet by mouth 2 times daily 11/27/2022 Active docusate sodium (Colace) 100 MG capsule 12/16/2022 Active fexofenadine (Debbi) 180 MG tablet TAKE 1 TABLET BY MOUTH ONCE DAILY AFTER A MEAL FOR 30 DAYS 11/27/2022 Active fluticasone propionate (Flonase) 50 MCG/ACT nasal spray 05/09/2022 Active omeprazole (PriLOSEC) 20 MG capsule TAKE 1 CAPSULE BY MOUTH ONCE DAILY IN THE MORNING 12/10/2022 Active polyethylene glycol 3350 (Miralax) 17 GM/SCOOP powder 11/12/2022 Active amLODIPine (Norvasc) 10 MG tablet Take 1 tablet every day by oral route for 30 days, for blood pressure. 05/06/2024 Active cetirizine (ZyrTEC) 10 MG tablet Take 1 tablet every day by oral route as needed for 30 days. 05/06/2024 Active famotidine (Pepcid) 20 MG tablet Take 1 tablet twice a day by oral route as directed for 90 days, for urticaria. 05/06/2024 Active hydroCHLOROthiaz callie 12.5 MG Take 1 tablet every day by oral route for 30 days, for blood pressure. 05/06/2024 Active predniSONE (Deltasone) 10 MG tablet 05/06/2024 Active clindamycin (Cleocin) 1 % lotionIndication s:Acne vulgaris Apply to affected area on face and neck every MORNING. 30 day supply. 60 mL 11 05/07/2024 Active tretinoin (Retin-A) 0.05 % creamIndications :Acne vulgaris Apply pea-sized amount to ENTIRE face at NIGHT. 30 days supply. 45 g 11 05/07/2024 Active triamcinolone acetonide (Kenalog) 0.1 % ointmentIndicati ons:Other eczema Apply to affected areas over trunk & extremities up to twice daily as needed. Avoid on face/armpits/groi n. Limit use to up to 2 weeks per month. 30 day supply. 80 g 11 05/07/2024 Active finasteride (Proscar) 5 MG tabletIndication s:Hirsutism Take 1 (one) tablet by mouth once daily 30 day supply. 90 tablet 3 05/07/2024 05/02/2025 Active tretinoin (Retin-A) 0.05 % creamIndications :Acne vulgaris Apply pea-sized amount to ENTIRE face at NIGHT. 30 days supply. 45 g 5 12/20/2022 05/07/2024 Discontinue d(Reorder) triamcinolone acetonide (Kenalog) 0.1 % ointmentIndicati ons:Other eczema Apply to affected areas over trunk & extremities up to twice daily as needed. Avoid on face/armpits/groi n. Limit use to up to 2 weeks per month. 30 day supply. 454 g 1 12/20/2022 05/07/2024 Discontinue d(Reorder) clindamycin (Cleocin) 1 % lotionIndication s:Acne vulgaris Apply to affected area on face and neck every MORNING. 30 day supply. 60 mL 5 12/20/2022 05/07/2024 Discontinue d(Reorder) finasteride (Proscar) 5 MG tabletIndication s:Hirsutism Take 1 (one) tablet by mouth once daily 30 day supply. 30 tablet 11 05/02/2023 05/07/2024 Discontinue d(Reorder) tretinoin (Retin-A) 0.025 % cream Pea sized amount to entire face at night. 30 days supply. 20 g 11 05/03/2023 05/07/2024 Discontinue d(Tx Complete) Active Problems Problem Noted Date Diagnosed Date Hirsutism 05/03/2023 Post-inflammatory hyperpigmentation 12/26/2022 Other specified dermatitis 12/26/2022 Genital herpes simplex 12/20/2022 Acne vulgaris 12/20/2022 Paresthesias 05/22/2020 12/20/2022 Recurrent aphthous ulcer 08/20/2019 023 Multiple sclerosis 10/02/2016 12/20/2022 Encounters Date Type Department Care Team Description 05/07/2024 10:35 AM BRAIN PICKER - 05/07/2024 11:59 PM [facility] Hospital Encounter [facility] OP DRAW STATION [address] [place] [address] Discharge Disposition: Home or Self Care 05/07/2024 9:20 AM BRAIN PICKER Office Visit [facility] - Dermat[facility] [address] [place] [phone] Supa Jamil MD Acne vulgaris (Primary Dx); Hirsutism; Other eczema; Chronic idiopathic urticaria 05/07/2024 Travel 05/06/2024 Telephone [facility] [address] [place] [phone] Supa Jamil MD Appointment 03/08/2024 Telephone [facility] [address] [place] [phone] Harshad Trevino MD Appointment 03/08/2024 Telephone [facility] [address] [place] [phone] Harshad Trevino MD from Last 3 Months Social History Tobacco Use Types Packs/Day Years [...] Mass Index 27.46 11/23/2019 3:26 PM CDT Plan of Treatment Upcoming Encounters Date Type Department Care Team (Late st Contact Info) Description 08/06/2024 9:40 AM CDT Office Visit [facility] [address] [place] [phone] Supa Jamil MD [address] [place] [address] [address] [place] [address] 09/27/2024 10:00 AM CDT Office Visit [facility] - Rheumatology [address] [place] [phone] Harshad Trevino MD [address] [place] [address] [address] [place] [address] Health Maintenance Due Date Last Done Comments COLOGUARD (AGES 45-75) - COL ON CA SCREENING 1968 COLON MONITORING 1968 COLONOSCOPY - COLON CA SCREENING 1968 CT COLONOGRAPHY - COLON CA SCREENING 1968 Colorectal Cancer Screening 1968 FIT - COLON CA SCREENING 1968 FLEX SIG - COLON CA SCREENING 1968 LIPID TESTING 1968 PAP SMEAR 1968 HIV SCREENING 10/24/1983 HEPATITIS C SCREENING 10/19/1986 DTAP/TDAP/TD VACCINES (1 - Tdap) 10/24/1987 HEPATITIS B VACCINE (1 of 3 - 19+ 3-dose series) 10/24/1987 PNEUMOCOCCAL VACCINE 50+ (1 of 1 - PCV) 2018 ZOSTER VACCINE (1 of 2) 2018 COVID-19 VACCINE (1 - 2023-2 5 season) 2023 INFLUENZA VACCINE (#1) 2023 DEPRESSION SCREENING 03/24/2024 MAMMOGRAM 04/14/2026 04/14/2024, 03/31/2024 HIB VACCINE Aged Out No longer eligi ble based on patient's age to complete this topic HPV VACCINE Aged Out No longer eligi ble based on patient's age to complete this topic MENINGOCOCCAL (Group B) VACCINE Aged Out No longer eligible b ased on patient's age to complete this topic MENINGOCOCCAL VACCINE Aged Out No leon devon eligible based on patient's age to complete this topic Procedures Procedure Name Priority Date/Time Associated Diagnosis Comments VITAMIN D 25-HYDROXY Routine 05/07/2024 10:52 AM BRAIN PICKER Chronic idiopathic urticaria from Last 3 Months Results * (ABNORMAL) VITAMIN D 25-HYDROXY (05/07/2024 10:52 AM BRAIN PICKER) [facility] Vitamin D, 25 Hydroxy 14.1(L) 30.0 - 80.0 ng/mL 05/07/2024 12:12 PM BRAIN PICKER [facility] Comment: The recommendations for 25-Hydroxy Vitamin [...] Lab Venipuncture / Unknown 05/07/2024 10:52 AM BRAIN PICKER 05/07/2024 11:25 AM BRAIN PICKER Supa A West MD LAB - CHEMISTRY [facility] [place] [facility] [address] [place] [address], [facility] [phone] from Last 3 Months Care Teams Clinical Services Director Relationship Specialty Start Date End Date Bebe Yarbrough PA-C [address] [place] [phone] PCP - General 05/03/22
--- OUTSIDE RECORDS SUMMARY | 2024-05-09 21:32 | XMS_ITS | Referral Summary ---
Author Organization [facility] Address [address] [facility] [address] Care Team Providers Care Frame Welder Cargo Utility Trailers Name Role Phone Bebe Yarbrough PA-C Primary Care Provider + Source Comments [facility],non-owned Affiliates and Associated Physician Practices is amultiple site organization consisting of ambulatory clinics and hospital sitesin [place], [place], [place] and [place]. This disclosure is being madepursuant to the Care Everywhere program and may not contain all information available regarding this patient. Last updated 17.[facility] Encounters Date Type Department Care Team Description 05/07/2024 10:35 AM MIRROR DEPARTMENT SUPERVISOR - 05/07/2024 11:59 PM [facility] Hospital Encounter [facility] LAB OP DRAW STATION [address] [place] [address] Discharge Disposition: Home or Self Care 05/07/2024 Travel 05/07/2024 9:20 AM MIRROR DEPARTMENT SUPERVISOR Office Visit [facility] [address] [place] [phone] Supa Jamil MD Acne vulgaris (Primary Dx); Hirsutism; Other eczema; Chronic idiopathic urticaria 05/06/2024 Telephone [facility] [address] [place] [address] [phone] Supa Jamil MD Appointment 03/08/2024 Telephone [facility] [address] [place] [phone] Harshad Trevino MD Appointment 03/08/2024 Telephone [facility] [address] [facility] [place] [address] Harshad Trevino MD from Last 3 Months Allergies No known active allergies Medications * [...] Description 08/06/2024 9:40 AM CDT Office Visit [facility] Derm[facility] [address] [place] [address] [place] [phone] Supa Jamil MD [address] [place] [address] [address] [place] [address] 09/27/2024 10:00 AM CDT Office Visit [facility] [address] [place] [phone] Harshad Trevino MD [address] [place] [address] [address] [place] [phone] Procedures Procedure Name Priority Date/Time Associated Diagnosis Comments VITAMIN D 25-HYDROXY Routine 05/07/2024 10:52 AM MIRROR DEPARTMENT SUPERVISOR Chronic idiopathic urticaria from Last 3 Months Results * (ABNORMAL) VITAMIN D 25-HYDROXY (05/07/2024 10:52 AM MIRROR DEPARTMENT SUPERVISOR) Vitamin D, 25 Hydroxy 14.1(L) 30.0 - 80.0 ng/mL 05/07/2024 12:12 PM MIRROR DEPARTMENT SUPERVISOR [facility] Comment: The recommendations for 25-Hydroxy Vitamin [...] Lab Venipuncture / Unknown 05/07/2024 10:52 AM MIRROR DEPARTMENT SUPERVISOR 05/07/2024 11:25 AM MIRROR DEPARTMENT SUPERVISOR Supa Jamil MD LAB - CHEMISTRY [facility] Organization Address City/State/[facility] Co de Phone Number [facility] [address] [place] [address], [facility] [phone] from Last 3 Months Care Teams Frame Welder Cargo Utility Trailers Relationship Specialty Start Date End Date Bebe Yarbrough PA-C [address] [place] [phone] PCP - General 05/03/22
[2024-05-09 23:32] VITALS: BP 127/85; PULSE 61; RESP 18; O2SAT 98
--- OUTSIDE RECORDS SUMMARY | 2024-05-10 01:23 | XMS_ITS | Clinical Summary ---
Author Organization [facility] Address [address] [facility] [place] [address] Care Team Providers Care German Tutor Name Role Phone Bebe Yarbrough PA-C Primary Care Provider + Source Comments [facility],non-owned Affiliates and Associated Physician Practices is amultiple site organization consisting of ambulatory clinics and hospital sitesin [place], [place], [place] and [place]. This disclosure is being madepursuant to the Care Everywhere program and may not contain all information available regarding this patient. Last updated 17.[facility] Allergies No known active allergies Medications * [...] Department Care Team Description 05/07/2024 10:35 AM SUPPLIER QUALITY ENGINEER - 05/07/2024 11:59 PM [facility] Hospital Encounter [facility] LAB OP DRAW STATION [address] [place] [address] Discharge Disposition: Home or Self Care 05/07/2024 9:20 AM SUPPLIER QUALITY ENGINEER Office Visit [facility] [address] [place] [phone] Supa Jamil MD Acne vulgaris (Primary Dx); Hirsutism; Other eczema; Chronic idiopathic urticaria 05/07/2024 Travel 05/06/2024 Telephone [facility] [address] [place] [phone] Supa Jamil MD Appointment 03/08/2024 Telephone [facility] [address] [place] [phone] Harshad Trevino MD Appointment 03/08/2024 Telephone [facility] [address] [place] [phone] Harshad Trevino MD from Last 3 Months [...] Office Visit [facility] [address] [place] [phone] Supa Jamil MD [address] [place] [address] [address] [place] [address] 09/27/2024 10:00 AM CDT Office Visit [facility] - Rheumatology [address] [place] [phone] Harshad Trevino MD [address] [place] [address] [address] [place] [address] Health Maintenance Due Date Last Done Comments [...] VITAMIN D 25-HYDROXY Routine 05/07/2024 10:52 AM SUPPLIER QUALITY ENGINEER Chronic idiopathic urticaria from Last 3 Months Results * (ABNORMAL) VITAMIN D 25-HYDROXY (05/07/2024 10:52 AM SUPPLIER QUALITY ENGINEER) [facility] Vitamin D, 25 Hydroxy 14.1(L) 30.0 - 80.0 ng/mL 05/07/2024 12:12 PM SUPPLIER QUALITY ENGINEER [facility] Comment: The recommendations [...] Lab Venipuncture / Unknown 05/07/2024 10:52 AM SUPPLIER QUALITY ENGINEER 05/07/2024 11:25 AM SUPPLIER QUALITY ENGINEER Supa A West MD LAB - CHEMISTRY [facility] [place] [facility] [address] [place] [address], [facility] [phone] from Last 3 Months Care Teams German Tutor Relationship Specialty Start Date End Date Bebe Yarbrough PA-C [address] [place] [phone] PCP - General 05/03/22
--- OUTSIDE RECORDS SUMMARY | 2024-05-10 01:23 | XMS_ITS | Clinical Summary ---
Author Organization [facility] Address [address] [place] [address] Care Team Providers Care Special Assemblies Supervisor Name Role Phone Iván Poole MD Primary Care Provider [phone] Allergies No known active allergies Medications Medication [...] age to complete this topic Care Teams Special Assemblies Supervisor Relationship Specialty Start Date End Date Iván Poole MD [address] [place] [address] PCP - General 09/26/21
--- OUTSIDE RECORDS SUMMARY | 2024-05-10 01:23 | XMS_ITS | Patient Health Summary ---
Author Organization [facility] [employer] Address [address] [facility] [place] [address] Care Team Providers Care Comp Field Case Manager Name Role Phone Bebe Yarbrough PA-C Primary Care Provider + Note from [facility],non-owned Affiliates and Associated Physician Practices is amultiple site organization consisting of ambulatory clinics and hospital sitesin [place], [place], [place] and [place]. This disclosure is being madepursuant to the Care Everywhere program and may not contain all information available regarding this patient. Last updated 17.[facility] Allergies No known active allergies Medications * [...] 05/07/2024) Performed for Chronic idiopathic urticaria * AL DRAIN/INJECT LARGE JOINT/BURSA(Performed 11/23/2019) Performed for Chronic pain of left knee * XR KNEE LEFT 4VW OR MORE(Performed 11/23/2019) Performed for Left knee pain, unspecified chronicity Results * (ABNORMAL) VITAMIN D 25-HYDROXY (05/07/2024 10:52 AM EMBALMER ASSISTANT) Vitamin D, 25 Hydroxy 14.1(L) 30.0 - 80.0 ng/mL 05/07/2024 12:12 PM EMBALMER ASSISTANT [facility] Comment: The recommendations for 25-Hydroxy Vitamin [...] Lab Venipuncture / Unknown 05/07/2024 10:52 AM EMBALMER ASSISTANT 05/07/2024 11:25 AM EMBALMER ASSISTANT Supa Jamil MD LAB - CHEMISTRY [facility] Organization Address City/State/ZIP Co de Phone Number [facility] [address] [place] [phone], [facility] [phone] * AL DRAIN/INJECT LARGE JOINT/BURSA (11/23/2019 5:02 PM CDT) [...] PA-C DIAGNOSTIC IMAGIN G ORDERABLES Care Teams Comp Field Case Manager Relationship Specialty Start Date End Date Bebe Yarbrough PA-C [address] [place] [phone] PCP - General 05/03/22
--- OUTSIDE RECORDS SUMMARY | 2024-05-10 01:23 | XMS_ITS | Referral Summary ---
Author Organization [facility] Address [address] [place] [address] Care Team Providers Care Pharmacy Picking Tech Name Role Phone Bebe Yarbrough Primary Care Provider Encounters Date Type Department Care Team Description 04/22/2024 5:21 PM CUPOLA MELTER - 04/22/2024 11:59 PM CUPOLA MELTER Hospital Encounter [address] [address] Well woman exam Discharge Disposition: Discharge to home or self care 04/22/2024 2:45 PM CUPOLA MELTER Office Visit [facility] [address] [facility] 3rd Floor [address] [place] [address] Yadira Hanson MD Well woman exam (Primary Dx); Stage 3 chronic kidney disease, unspecified whether stage 3a or 3b CKD (HCC); Multiple sclerosis (HCC) 04/15/2024 Telephone [facility] [address] [place] [address] Hue Fontanze Test Results (Left breast and left axillary lymph node biopsy 04/14/24) 04/14/2024 2:54 PM CUPOLA MELTER - 04/14/2024 11:59 PM CUPOLA MELTER Hospital Encounter [facility] ([facility]) [address] [place] [address] Abnormal mammogram Discharge Disposition: Discharge to home or self care 04/14/2024 2:03 PM CUPOLA MELTER - 04/14/2024 11:59 PM CUPOLA MELTER Hospital Encounter [facility] ([facility]) [address] [place] [address] Abnormal mammogram Discharge Disposition: Discharge to home or self care 04/07/2024 Telephone [facility] ([facility]) [address] [place] [address] Aisha Seo RN 04/06/2024 Telephone [facility] ([facility]) [address] [place] [address] Macy Handy, ALCIRA 04/01/2024 Telephone [facility] ([facility]) [address] [place] [address] Macy Handy RN 03/31/2024 6:19 PM CUPOLA MELTER - 03/31/2024 11:59 PM CUPOLA MELTER Hospital Encounter [facility] ([facility]) [address] [place] [address] Discharge Disposition: Discharge to home or self care 02/25/2024 12:05 AM CUPOLA MELTER - 02/25/2024 11:59 PM [facility] Hospital Encounter [facility] ([facility]) [address] [place] [address] Discharge Disposition: Discharge to home or self care 02/25/2024 - 02/25/2024 11:59 PM [facility] Hospital Encounter [facility] ([facility]) [address] [place] [address] Discharge Disposition: Discharge to home or self [...] Comments Blood Pressure 122/79 04/22/2024 2:30 PM CUPOLA MELTER Pulse 88 04/22/2024 2:30 PM CUPOLA MELTER Temperature 36.7 C (98 F) 01/14/2023 1:15 PM CDT Respiratory Rate 18 01/14/2023 1:15 PM CDT Oxygen Saturation 100% 04/22/2024 2:30 PM CUPOLA MELTER Inhaled Oxygen Concentration - - Weight 77.8 kg (171 lb 9.6 oz) 04/22/2024 2:30 P M CUPOLA MELTER Height 165.1 cm (5' 5 ) 01/14/2023 1:15 PM CDT Body Mass Index 28.56 01/14/2023 1:15 PM CDT Plan of Treatment Not on file Medical Devices Implanted Type Area Home Health Aide Device Identifier Shelf Expiration Date Model / Serial / Lot Autopilot (formerly Bislr) Embosphere Saline Syringe Compressible Nonaggregate Highly Target S620gh - [id number] Implanted:Qty: 2 on 09/19/2021 at [facility] [employer] 12/18/2023 S620GH / / [id number]. Autopilot (formerly Bislr) Embosphere Saline Syringe Compressible Nonaggregate Highly Target S620gh - [id number] Implanted:Qty: 1 on 09/19/2021 at [facility] [employer] (formerly [employer]) 05/21/2024 S620GH / / [id number] Autopilot (formerly Bislr) Embosphere Saline Syringe Compressible Nonaggregate Highly Target S620gh - [id number] Implanted:Qty: 2 on 09/19/2021 at [facility] [employer] (formerly [employer]) 12/18/2023 S620GH / / [id number]. Autopilot (formerly Bislr) Embosphere Saline Syringe Compressible Nonaggregate Highly Target S620gh - [id number] Implanted:Qty: 1 on 09/19/2021 at [facility] [employer]ilot (formerly [employer]) 05/21/2024 S620GH / / [id number] Angio-Seal Vip 6fr Closere Device [id number] - [id number] Implanted:Qty: 1 on 09/19/2021 at [facility] [employer] 06/21/2022 [id number] / / [id number] [employer] Marker Image Hydromark Plus T5 Titanium 15ga Radiological Implant Sterile 4009-05-08-T5 - [id number] Implanted:Qty: 1 on 04/14/2024 by Bryce Hale MD at [facility] Left: Breast [employer] [id number] 03/11/2025 4010-02-1 5-T5 / / [id number] D Bard Peripheral Vascular Marker Breast Ring Shape Radiopaque Nitinol Ultracor Twirl [id number] Uctw17 - [id number] Implanted:Qty: 1 on 04/14/2024 by Bryce Hale MD at [facility] Left: Axilla Bard Peripheral Vascular [id number] / / Procedures Procedure Name Priority Date/Time Associated Diagnosis Comments PAP AND HIGH RISK HPV, REFLEX TO GENOTYPING Routine 04/22/2024 2:48 PM CUPOLA MELTER Well woman exam HIGH RISK HPV DNA DETECTION WITH GENOTYPING Routine 04/22/2024 2:48 PM CUPOLA MELTER CARLOS POST CLIP PLACEMENT LEFT Schedule Routine, Read Routine (OP Routine) 04/14/2024 3:23 PM CUPOLA MELTER Abnormal mammogram US GUIDED BREAST BIOPSY LEFT Schedule Routine, Read Routine (OP Routine) 04/14/2024 3:03 PM CUPOLA MELTER Abnormal mammogram SURGICAL PATHOLOGY Routine 04/14/2024 2: 42 PM CUPOLA MELTER Abnormal mammogram BREAST IMAGING MG DIAGNOSTIC OUTSIDE CONSULT Routine 03/31/2024 6:19 PM CUPOLA MELTER BREAST IMAGING US OUTSIDE REFERENCE Schedule Routine, Read Routine (OP Routine) 02/25/2024 12:05 AM CUPOLA MELTER BREAST IMAGING MG DIAGNOSTIC OUTSIDE REFERENCE Schedule Routine, Read Routine (OP Routine) 02/25/2024 12:00 AM CUPOLA MELTER from Last 3 Months Results * High Risk HPV DNA Detection with Genotyping (Molecular component) (04/22/2024 2:48 PM CUPOLA MELTER) Pathologist [facility] HPV HR 16 Not Detected Not Detected [facility] HPV HR 18 Not Detected Not Detected [facility] HPV HR Non 16/18 Not Detected Not Detected [facility] Comment: Interpretive Data Nucleic acid amplification for [...] this test have been verified by the [facility] Molecular Infectious Disease laboratory. Correlate with separately reported cytology results, as applicable. Interpretive data last revised 22 [facility] 04/22/2024 2:48 PM CUPOLA MELTER 04/26/2024 2:59 PM CUPOLA MELTER Yadira Hanson MD LAB BODY FLUIDS AND STOOLS ORDERABLES Final Result [facility] Department [place] [address] [facility] * Pap and High Risk HPV and Genotyping (Cytology Component) (04/22/2024 2:48 PM CUPOLA MELTER) Thin prep (Pap test) 04/22/2024 2:48 PM CUPOLA MELTER 04/22/2024 5:22 PM CUPOLA MELTER Narrative PATHOLOGY [facility] - 04/30/2024 8:08 AM CUPOLA MELTER EPIC results best viewed via link to PDF [facility] Raegan Booker [facility] [place] [address] Note to Patients: This report may contain [...] Gender: F : 1970 (Age: 53) Address: [address] [place] [address] [place] [address] Hospital #: [id number] Service: ORTHOPAEDIC TECHNOLOGIST Location: Patient Type: [facility] SPECIMEN Taken: 04/22/2024 Received: 04/22/2024 Accessioned: 04/26/2024 [...] as applicable. Interpretive data last revised 22 [facility]/04/30/2024 08:08 DAVID Luna(ASCP) Report Electronically Reviewed and [...] clinical information and biopsy results as indicated. [facility] Clinical Laboratory Improvement Amendments (CLIA) mandate that cytologic and histologic results be correlated for laboratory research associate quality control qc & improvement standards. FOR ALL HIGH-GRADE CASES [...] [facility] as part of an ongoing quality control tester program and in compliance with federally mandated [...] LAB CYTOLOGY ORDERABLES Fi nal Result PATHOLOGY [facility] 3rd Floor [place], [place] [phone] * Carlos Post Clip Placement Left (04/14/2024 3:23 PM CUPOLA MELTER) Anatomical Region Laterality Modality Breast Left Mammography 04/14/2024 3:23 PM CUPOLA MELTER Addenda Addendum by Alem Grace MD on 04/15/2024 3:16 PM CUPOLA MELTER Pathology results of the left 1:30 mass [...] concordant. Return for annual screening mammography. A [facility] breast nurse navigator will contact patient and PCP with these results and recommendation. A separate note will be placed in Psychiatric. Electronically signed by: Alem Grace MD Impressions 04/14/2024 3:28 PM CUPOLA MELTER 1. Successful biopsy of the LEFT breast [...] Alem Grace MD Narrative 04/14/2024 3:28 PM CUPOLA MELTER EXAMINATION: LEFT BREAST CORE BIOPSY UTILIZING SONOGRAPHIC [...] were obtained through the lymph node. A [employer] Twirl tissue marker clip was then placed [...] entire procedure. Dr. Bryce Hale MD (diagnostic front loader residential driver) also participated in this examination. Procedure Note [...] entire procedure. Dr. Bryce Hale MD (diagnostic front loader residential driver) also participated in this examination. IMPRESSION: 1. [...] Guided Breast Biopsy Left (04/14/2024 3:03 PM CUPOLA MELTER) Anatomical Region Laterality Modality Breast Left Mammography 04/14/2024 3:23 PM CUPOLA MELTER Addenda Addendum by Alem Grace MD on 04/15/2024 3:16 PM CUPOLA MELTER Pathology results of the left 1:30 mass [...] concordant. Return for annual screening mammography. A [facility] breast nurse navigator will contact patient and PCP with these results and recommendation. A separate note will be placed in Psychiatric. Electronically signed by: Alem Grace MD Impressions 04/14/2024 3:28 PM CUPOLA MELTER 1. Successful biopsy of the LEFT breast [...] Alem Grace MD Narrative 04/14/2024 3:28 PM CUPOLA MELTER EXAMINATION: LEFT BREAST CORE BIOPSY UTILIZING SONOGRAPHIC [...] entire procedure. Dr. Bryce Hale MD (diagnostic front loader residential driver) also participated in this examination. Procedure Note [...] was present throughout the entire procedure. Dr. rByce Hale MD (diagnostic front loader residential driver) also participated in this examination. IMPRESSION: 1. [...] signed by: Alem Grace MD Humberto DOSS [facility] MAMMO PROCEDURES Edite d Result - Final * Surgical pathology (04/14/2024 2:42 PM CUPOLA MELTER) Tissue (Breast biopsy, needle core) 04/14/2024 2:42 PM CUPOLA MELTER Comment:left breast 1:30 11 cm/fn, ultrasound biopsy, birads 5 Tissue (Lymph node, needle biopsy) 04/14/2024 2:49 PM CUPOLA MELTER Comment:left axilla lymph no de, ultrasound biopsy, birads 5 Narrative PATHOLOGY [facility] - 04/15/2024 2:16 PM CUPOLA MELTER EPIC results best viewed via link to PDF [facility]egan Booker [facility] [place] [address] Note to Patients: This report may contain [...] Gender: F : 1970 (Age: 53) Address: [address] [place] [address] Hospital #: [id number] Taken:04/14/2024 Received:04/14/2024 Reported: 04/15/2024 Patient Type: [facility] Ancillary Service: UNKNOWN Location: Physician(s): Alem Grace [...] Jar 0. Total fixation time= 6.[address] [facility]/04/14/2024 17:45 PA(s): Alem Aguero By this signature, [...] [facility] as part of an ongoing quality control tester program and in compliance with federally mandated [...] LAB PATHOLOGY ORDERABLES F inal Result PATHOLOGY [facility] 3rd Floor [place], [place] [phone] * Breast Imaging DX Outside Consult (03/31/2024 6:19 PM CUPOLA MELTER) Anatomical Region Laterality Modality Breast N/A Mammography 04/01/2024 9:59 AM CUPOLA MELTER Impressions 04/01/2024 10:24 AM CUPOLA MELTER 1. Irregular 1.5 cm mass is present [...] images may or may not represent the [place] source data set and thus may contain changes which may lower the sensitivity of the second opinion interpretation. Dictated by: Dallas Ramirez D.O. The radiology attending physician has personally reviewed this study, and had reviewed and/or edited this written report and agrees with it. Electronically signed by: Michelle Vargas M.D. Narrative 04/01/2024 10:24 AM CUPOLA MELTER EXAMINATION: REVIEW AND INTERPRETATION OF OUTSIDE IMAGING FACILITY PERFORMING OUTSIDE IMAGING: [place], [place] EXAM(S) REVIEWED: 1. BILATERAL SCREENING MAMMOGRAM [...] OF OUTSIDE IMAGING FACILITY PERFORMING OUTSIDE IMAGING: [place], [place] EXAM(S) REVIEWED: 1. BILATERAL SCREENING MAMMOGRAM [...] images may or may not represent the [place] source data set and thus may contain [...] Imaging US Outside Reference (02/25/2024 12:05 AM CUPOLA MELTER) Impressions [facility] - 03/31/2024 6:09 PM CUPOLA MELTER These images are for Reference purposes only and have not been reviewed by [facility]iology. There will be no report generated by a [facility] Radiologist. Narrative [facility] - 03/31/2024 6:09 PM CUPOLA MELTER EXAMINATION: Images For Reference Purposes Only Humberto DOSS G MAMMO PROCEDURES Final Result Performing Organization Address [facility] Co de Phone Number [email or web address] * Breast Imaging Diagnostic Outside Reference (02/25/2024 12:00 AM CUPOLA MELTER) Impressions [facility] - 03/31/2024 6:07 PM CUPOLA MELTER These images are for Reference purposes only and have not been reviewed by [facility]. There will be no report generated by a [facility] Radiologist. Narrative [facility] - 03/31/2024 6:07 PM CUPOLA MELTER EXAMINATION: Images For Reference Purposes Only Humberto DOSS IMG MAMMO PROCEDURES Final Result Performing Organization Address City/State/[facility] Co de Phone Number [email or web address] from Last 3 Months Insurance [facility] Advance Directives For more information, please contact: [phone] * Full Code (Latest Code Status on File) Date Activated Date Inactivated Comments 09/19/2021 7:10 AM 09/20/2021 5:05 AM Care Teams Pharmacy Picking Tech Relationship Specialty Start Date End Date Bebe Yarbrough PA [address] [place] [address] PCP - General Physician Cardiac Rehabilitation Specialist 08/13/19
--- OUTSIDE RECORDS SUMMARY | 2024-05-10 01:23 | XMS_ITS | Referral Summary ---
Author Organization [facility] Address [address] [place] [address] Care Team Providers Care Lottery Manager Name Role Phone Iván Poole MD Primary Care Provider [phone] Allergies No known active allergies Medications Medication [...] of Treatment Not on file Care Teams Lottery Manager Relationship Specialty Start Date End Date Iván Poole MD [address] [place], [place] [phone] PCP - General 09/26/21
--- OUTSIDE RECORDS SUMMARY | 2024-05-10 01:23 | XMS_ITS | Encounter Summary ---
Author Organization [facility] Address [address] [facility] [place] [address] Care Team Providers Care Gripper Attacher Name Role Phone Bebe Yarbrough PA-C Primary Care Provider + Encounter Details Date Type Department Care Team (Late Contact Info) Description 03/08/2024 Telephone [facility] - Rheumatology [address] [place] [address], [place] [address] Harshad Trevino MD [address] [place] [address] [place] [address] Social History Tobacco Use Types [...] office to discuss. Call back number is [phone] S PROFESSIONAL documented in this encounter Plan of Treatment Upcoming Encounters Date Type Department Care Team (Late st Contact Info) Description 08/06/2024 9:40 AM CDT Office Visit [facility] - Dermatology [address] [place] [address], [place] [phone] Supa Jamil MD [address] [place] [address] 3L [place] [address] 09/27/2024 10:00 AM CDT [facility] [address] [place] [address], [place] [phone] Harshad Trevino MD [address] [place] [address] 2L [place] [phone] documented as of this encounter Visit Diagnoses Not on filedocumented in this encounter Care Teams Gripper Attacher Relationship Specialty Start Date End Date Bebe Yarbrough PA-C [address] [place] [phone] PCP - General 05/03/22 documented as of this encounter
--- OUTSIDE RECORDS SUMMARY | 2024-05-10 01:23 | XMS_ITS | Referral Summary ---
Author Organization [facility] Address [address] [place] [address] Care Team Providers Care Clay Carman Name Role Phone Bebe Yarbrough PA-C Primary Care Provider + Source Comments [facility],non-owned Affiliates and Associated Physician Practices is amultiple site organization consisting of ambulatory clinics and hospital sitesin [place], [place], [place] and [place]. This disclosure is being madepursuant to the Care Everywhere program and may not contain all information available regarding this patient. Last updated 17.[facility] Encounters Date Type Department Care Team Description 05/07/2024 10:35 AM CLINICAL SERVICES CONSULTANT - 05/07/2024 11:59 PM [facility] Hospital Encounter [facility] LAB OP DRAW STATION [address] [place] [address] Discharge Disposition: Home or Self Care 05/07/2024 Travel 05/07/2024 9:20 AM CLINICAL SERVICES CONSULTANT Office Visit [facility] - Dermatology [address] [place] [phone] Supa Jamil MD Acne vulgaris (Primary Dx); Hirsutism; Other eczema; Chronic idiopathic urticaria 05/06/2024 Telephone [facility] Dermatology [address] [place] [phone] Supa Jamil MD Appointment 03/08/2024 Telephone [facility] - Rheumatology [address] [place] [phone] Harshad Trevino MD Appointment 03/08/[address] [facility] - Rheumatology [address] [facility] [address], [place] [address] Harshad Trevino MD from Last [...] Description 08/06/2024 9:40 AM CDT Office Visit [facility] - Dermatology [address] [place] [address] [place] [phone] Supa Jamil MD [address] [place] [address] [address] [place] [address] 09/27/2024 10:00 AM CDT Office Visit [facility] - Rheumatology [address] [place] [phone] Harshad Trevino MD [address] [place] [address] [address]L [place] [phone] Procedures Procedure Name Priority Date/Time Associated Diagnosis Comments VITAMIN D 25-HYDROXY Routine 05/07/2024 10:52 AM CLINICAL SERVICES CONSULTANT Chronic idiopathic urticaria from Last 3 Months Results * (ABNORMAL) VITAMIN D 25-HYDROXY (05/07/2024 10:52 AM CLINICAL SERVICES CONSULTANT) Vitamin D, 25 Hydroxy 14.1(L) 30.0 - 80.0 ng/mL 05/07/2024 12:12 PM CLINICAL SERVICES CONSULTANT [facility] Comment: The recommendations for 25-Hydroxy Vitamin [...] Lab Venipuncture / Unknown 05/07/2024 10:52 AM CLINICAL SERVICES CONSULTANT 05/07/2024 11:25 AM CLINICAL SERVICES CONSULTANT Supa Jamil MD LAB - CHEMISTRY CLARISSE SKELTON [facility] Organization Address City/State/[facility] Co de Phone Number [facility] [address] [place] [address], [facility] [phone] from Last 3 Months Care Teams Clay Carman Relationship Specialty Start Date End Date Bebe Yarbrough PA-C [address] [place] [phone] PCP - General 05/03/22
--- OUTSIDE RECORDS SUMMARY | 2024-05-10 01:23 | XMS_ITS | Clinical Summary ---
Author Organization [facility] Address [address] [place] [address] Care Team Providers Care Jukebox Operator Name Role Phone Bebe Yarbrough Primary Care Provider [phone] Allergies No known active allergies Medications acyclovir [...] Department Care Team Description 04/22/2024 5:21 PM COOLER DELIVERER - 04/22/2024 11:59 PM COOLER DELIVERER Hospital Encounter [facility] [address] [place] [address] Well woman exam Discharge Disposition: Discharge to home or self care 04/22/2024 2:45 PM COOLER DELIVERER Office Visit [facility] [address] [facility] 3rd Floor [address] [place] [phone] Yadira Hanson MD Well woman exam (Primary Dx); Stage 3 chronic kidney disease, unspecified whether stage 3a or 3b CKD (HCC); Multiple sclerosis (HCC) 04/15/2024 Telephone [facility] ([facility]) [address] [place] [address] Hue Fontanez Test Results (Left breast and left axillary lymph node biopsy 04/14/24) 04/14/2024 2:54 PM COOLER DELIVERER - 04/14/2024 11:59 PM COOLER DELIVERER Hospital Encounter [facility] ([facility]) [address] [place] [address] Abnormal mammogram Discharge Disposition: Discharge to home or self care 04/14/2024 2:03 PM COOLER DELIVERER - 04/14/2024 11:59 PM COOLER DELIVERER Hospital Encounter [facility] ([facility] [address] [place] [address] Abnormal mammogram Discharge Disposition: Discharge to home or self care 04/07/2024 Telephone [facility] ([facility]) [address] [place] [address] Aisha Seo RN 04/06/2024 Telephone [facility] ([facility]) [address] [place] [address] 269[address] Macy Handy RN 04/01/2024 Telephone [facility] ([facility]) [address] [place] [address] Macy Handy RN 03/31/2024 6:19 PM COOLER DELIVERER - 03/31/2024 11:59 PM COOLER DELIVERER Hospital Encounter [facility] ([facility]) [address] [place] [address] Discharge Disposition: Discharge to home or self care 02/25/2024 12:05 AM COOLER DELIVERER - 02/25/2024 11:59 PM COOLER DELIVERER Hospital Encounter [facility] ([facility]) [address] [place] [address] Discharge Disposition: Discharge to home or self care 02/25/2024 - 02/25/2024 11:59 PM COOLER DELIVERER Hospital Encounter [facility] ([facility]) [address] [place] [address] Discharge Disposition: Discharge to home or self [...] Comments Blood Pressure 122/79 04/22/2024 2:30 PM COOLER DELIVERER Pulse 88 04/22/2024 2:30 PM COOLER DELIVERER Temperature 36.7 C (98 F) 01/14/2023 1:15 PM CDT Respiratory Rate 18 01/14/2023 1:15 PM CDT Oxygen Saturation 100% 04/22/2024 2:30 PM COOLER DELIVERER Inhaled Oxygen Concentration - - Weight 77.8 kg (171 lb 9.6 oz) 04/22/2024 2:30 P M COOLER DELIVERER Height 165.1 cm (5' 5 ) 01/14/2023 [...] this topic Medical Devices Implanted Type Area Environmental Project Manager Device Identifier Shelf Expiration Date Model / Serial / Lot Cometa Embosphere Saline Syringe Compressible Nonaggregate Highly Target S620gh - [id number] Implanted:Qty: 2 on 09/19/2021 at [facility] [employer] 12/18/2023 S620GH / / [id number]. [facility] Embosphere Saline Syringe Compressible Nonaggregate Highly Target S620gh - [id number] Implanted:Qty: 1 on 09/19/2021 at [facility] 05/21/2024 S620GH / / [id number] [facility] Embosphere Saline Syringe Compressible Nonaggregate Highly Target S620gh - [id number] Implanted:Qty: 2 on 09/19/2021 at [facility] [employer] 12/18/2023 S620GH / / [id number]. [facility] Embosphere Saline Syringe Compressible Nonaggregate Highly Target S620gh - [id number] Implanted:Qty: 1 on 09/19/2021 at [facility] 05/21/2024 S620GH / / [id number] Angio-Seal Vip 6fr Closere Device [id number] - [id number] Implanted:Qty: 1 on 09/19/2021 at [facility] [employer] 06/21/2022 [id number] / / [id number] [employer] Marker Image Hydromark Plus T5 Titanium 15ga Radiological Implant Sterile 4009-05-08-T5 - [id number] Implanted:Qty: 1 on 04/14/2024 by Bryce Hale MD at [facility] Left: Breast [employer] [id number] 03/11/2025 4010-02-1 5-T5 / / [id number] D Bard Peripheral Vascular Marker Breast Ring Shape Radiopaque Nitinol Ultracor Twirl [id number] Uctw17 - [id number] Implanted:Qty: 1 on 04/14/2024 by Bryce Hale MD at [facility] Left: Axilla Bard Peripheral Vascular [id number] / / Procedures Procedure Name Priority Date/Time Associated Diagnosis Comments PAP AND HIGH RISK HPV, REFLEX TO GENOTYPING Routine 04/22/2024 2:48 PM COOLER DELIVERER Well woman exam HIGH RISK HPV DNA DETECTION WITH GENOTYPING Routine 04/22/2024 2:48 PM COOLER DELIVERER CARLOS POST CLIP PLACEMENT LEFT Schedule Routine, Read Routine (OP Routine) 04/14/2024 3:23 PM COOLER DELIVERER Abnormal mammogram US GUIDED BREAST BIOPSY LEFT Schedule Routine, Read Routine (OP Routine) 04/14/2024 3:03 PM COOLER DELIVERER Abnormal mammogram SURGICAL PATHOLOGY Routine 04/14/2024 2: 42 PM COOLER DELIVERER Abnormal mammogram BREAST IMAGING MG DIAGNOSTIC OUTSIDE CONSULT Routine 03/31/2024 6:19 PM COOLER DELIVERER BREAST IMAGING US OUTSIDE REFERENCE Schedule Routine, Read Routine (OP Routine) 02/25/2024 12:05 AM COOLER DELIVERER BREAST IMAGING MG DIAGNOSTIC OUTSIDE REFERENCE Schedule Routine, Read Routine (OP Routine) 02/25/2024 12:00 AM COOLER DELIVERER from Last 3 Months Results * High Risk HPV DNA Detection with Genotyping (Molecular component) (04/22/2024 2:48 PM COOLER DELIVERER) Pathologist [facility] HPV HR 16 Not Detected Not Detected [facility] HPV HR 18 Not Detected Not Detected [facility] HPV HR Non 16/18 Not Detected Not Detected [facility] Comment: Interpretive Data Nucleic acid amplification [...] this test have been verified by the [facility] Molecular Infectious Disease laboratory. Correlate with separately reported cytology results, as applicable. Interpretive data last revised 22 [facility] 04/22/2024 2:48 PM COOLER DELIVERER 04/26/2024 2:59 PM COOLER DELIVERER us Yadira Hanson MD LAB BODY FLUIDS AND STOOLS ORDERABLES Final Result [facility] Department [place] [address] [facility] * Pap and High Risk HPV and Genotyping (Cytology Component) (04/22/2024 2:48 PM COOLER DELIVERER) Thin prep (Pap test) 04/22/2024 2:48 PM COOLER DELIVERER 04/22/2024 5:22 PM COOLER DELIVERER Narrative PATHOLOGY [facility] - 04/30/2024 8:08 AM COOLER DELIVERER EPIC results best viewed via link to PDF [facility] Raegan Booker [facility] [place] [address] Note to Patients: This report may contain [...] Gender: Ralf : 1970 (Age: 53) Address: [address] [place] [phone] [facility] #: [id number] Service: SENIOR SOFTWARE ENGINEER ANALYTICS Location: Patient Type: [facility] SPECIMEN Taken: 04/22/2024 Received: 04/22/2024 Accessioned: [...] this test have been verified by the [facility] Molecular Infectious Disease laboratory. Correlate with reported cytology results, as applicable. Interpretive data last revised 22 [facility]/04/30/2024 08:08 DAVID Luna(ASCP) Report Electronically Reviewed and [...] clinical information and biopsy results as indicated. [facility] Clinical Laboratory Improvement Amendments (CLIA) mandate that cytologic and histologic results be correlated for laboratory air quality manager & improvement standards. FOR ALL HIGH-GRADE CASES [...] determined by the Surgical Pathology Department at [facility] as part of an ongoing quality control representative program and in compliance with federally [...] determined by the Surgical Pathology Department of [facility]. It has not been cleared or approved by the U. S. Food and Drug Administration. Yadira Hanson MD LAB CYTOLOGY ORDERABLES Fi nal Result PATHOLOGY [facility] 3rd Floor [place], [place] [phone] * Carlos Post Clip Placement Left (04/14/2024 3:23 PM COOLER DELIVERER) Anatomical Region Laterality Modality Breast Left Mammography 04/14/2024 3:23 PM COOLER DELIVERER Addenda Addendum by Alem Grace MD on 04/15/2024 3:16 PM COOLER DELIVERER Pathology results of the left 1:30 mass [...] concordant. Return for annual screening mammography. A [facility] breast nurse navigator will contact patient and PCP with these results and recommendation. A separate note will be placed in [facility]. Electronically signed by: Alem Grace MD Impressions 04/14/2024 3:28 PM COOLER DELIVERER 1. Successful biopsy of the LEFT breast [...] Alem Grace MD Narrative 04/14/2024 3:28 PM COOLER DELIVERER EXAMINATION: LEFT BREAST CORE BIOPSY UTILIZING SONOGRAPHIC [...] were obtained through the lymph node. A NextStep.io Twirl tissue marker clip was then placed [...] entire procedure. Dr. Bryce Hale MD (diagnostic resident care coordinator) also participated in this examination. Procedure Note [...] were obtained through the lesion. A Mammotome GreenOwl Mobilemark dragonfly tissue marker clip was then placed [...] were obtained through the lymph node. A NextStep.io Twirl tissue marker clip was then placed [...] entire procedure. Dr. Bryce Hale MD (diagnostic resident care coordinator) also participated in this examination. IMPRESSION: 1. [...] Guided Breast Biopsy Left (04/14/2024 3:03 PM COOLER DELIVERER) Anatomical Region Laterality Modality Breast Left Mammography 04/14/2024 3:23 PM COOLER DELIVERER Addenda Addendum by Alem Grace MD on 04/15/2024 3:16 PM COOLER DELIVERER Pathology results of the left 1:30 mass [...] concordant. Return for annual screening mammography. A [facility] breast nurse navigator will contact patient and PCP with these results and recommendation. A separate note will be placed in Epic. Electronically signed by: Alem Grace MD Impressions 04/14/2024 3:28 PM COOLER DELIVERER 1. Successful biopsy of the LEFT breast [...] Alem Grace MD Narrative 04/14/2024 3:28 PM COOLER DELIVERER EXAMINATION: LEFT BREAST CORE BIOPSY UTILIZING SONOGRAPHIC [...] were obtained through the lesion. A Mammotome GreenOwl Mobilemark dragonfly tissue marker clip was then placed [...] were obtained through the lymph node. A NextStep.io Twirl tissue marker clip was then placed [...] entire procedure. Dr. Bryce Hale MD (diagnostic resident care coordinator) also participated in this examination. Procedure Note [...] entire procedure. Dr. Bryce Hale MD (diagnostic resident care coordinator) also participated in this examination. IMPRESSION: 1. [...] Final * Surgical pathology (04/14/2024 2:42 PM COOLER DELIVERER) Tissue (Breast biopsy, needle core) 04/14/2024 2:42 PM COOLER DELIVERER Comment:left breast 1:30 11 cm/fn, ultrasound biopsy, birads 5 Tissue (Lymph node, needle biopsy) 04/14/2024 2:49 PM COOLER DELIVERER Comment:left axilla lymph no de, ultrasound biopsy, birads 5 Narrative PATHOLOGY [facility] - 04/15/2024 2:16 PM COOLER DELIVERER EPIC results best viewed via link to PDF [facility] Raegan Booker Laboratory of Surgical [place] [address] Note to Patients: This report may contain [...] Gender: F : 1970 (Age: 53) Address: [address] [place] [phone] Hospital #: [id number] Taken:04/14/2024 Received:04/14/2024 Reported: 04/15/2024 Patient Type: [facility] Ancillary Service: UNKNOWN Location: Physician(s): Romel Alvarez [...] Surgical Pathology and Flow Cytometry Departments at [facility] as part of an ongoing quality control representative program and in compliance with federally [...] Surgical Pathology and Flow Cytometry Departments of [facility]. It has not been cleared or approved by the U. S. Food and Drug Administration. IMAGES AND SCANNED DOCUMENTS, IF INCLUDED, ONLY VIEWABLE IN PDF VERSION OF REPORT Humberto DOSS LAB PATHOLOGY ORDERABLES F inal Result PATHOLOGY [facility] 3rd Floor [place], [place] [phone] * Breast Imaging DX Outside Consult (03/31/2024 6:19 PM COOLER DELIVERER) Anatomical Region Laterality Modality Breast N/A Mammography 04/01/2024 9:59 AM COOLER DELIVERER Impressions 04/01/2024 10:24 AM COOLER DELIVERER 1. Irregular 1.5 cm mass is present [...] images may or may not represent the [place] source data set and thus may contain changes which may lower the sensitivity of the second opinion interpretation. Dictated by: Dallas Ramirze D.O. The radiology attending physician has personally reviewed this study, and had reviewed and/or edited this written report and agrees with it. Electronically signed by: Michelle Vargas M.D. Narrative 04/01/2024 10:24 AM COOLER DELIVERER EXAMINATION: REVIEW AND INTERPRETATION OF OUTSIDE IMAGING FACILITY PERFORMING OUTSIDE IMAGING: [place], [place] EXAM(S) REVIEWED: 1. BILATERAL SCREENING MAMMOGRAM [...] OF OUTSIDE IMAGING FACILITY PERFORMING OUTSIDE IMAGING: [place], [place] EXAM(S) REVIEWED: 1. BILATERAL SCREENING MAMMOGRAM [...] images may or may not represent the [place] source data set and thus may contain [...] Imaging US Outside Reference (02/25/2024 12:05 AM COOLER DELIVERER) Impressions [facility] - 03/31/2024 6:09 PM COOLER DELIVERER These images are for Reference purposes only and have not been reviewed by [facility] Radiology. There will be no report generated by a [facility] Radiologist. Narrative [facility] - 03/31/2024 6:09 PM COOLER DELIVERER EXAMINATION: Images For Reference Purposes Only Humberto DOSS IMG MAMMO PROCEDURES Final Result Performing Organization Address City/[facility]/ZIP Co de Phone Number [facility] * Breast Imaging Diagnostic Outside Reference (02/25/2024 12:00 AM COOLER DELIVERER) Impressions [facility] - 03/31/2024 6:07 PM COOLER DELIVERER These images are for Reference purposes only and have not been reviewed by [facility] Radiology. There will be no report generated by a [facility] Radiologist. Narrative [facility] - 03/31/2024 6:07 PM COOLER DELIVERER EXAMINATION: Images For Reference Purposes Only Humberto DOSS IMG MAMMO PROCEDURES Final Result Performing Organization Address [facility] Co de Phone Number [facility] from Last 3 Months Insurance [facility] Advance Directives For more information, please contact: [phone] * Full Code (Latest Code Status on File) Date Activated Date Inactivated Comments 09/19/2021 7:10 AM 09/20/2021 5:05 AM Care Teams Jukebox Operator Relationship Specialty Start Date End Date Bebe Yarbrough PA [address] [place] [address] PCP - General Physician Felled Seam Operator Chainstitch 08/13/19
--- OUTSIDE RECORDS SUMMARY | 2024-05-10 01:23 | XMS_ITS | Clinical Summary ---
Author Organization [facility] Address [address] [place] [phone] Phone Care Team Providers Care Online Content Developer Name Role Phone Provider, Not On File [...] on file Legal Sex Female 1:44 PM AUTO PHONE INSTALLER Gender Identity Female 09/09/2023 11:11 AM CDT [...] age to complete this topic Insurance MEDICAID [facility] MEDICAID [facility] [place] Care Teams Online Content Developer Relationship Specialty Start Date End Date Provider, Not On File [place] PCP - General 06/16/23
--- OUTSIDE RECORDS SUMMARY | 2024-05-10 01:23 | XMS_ITS | Clinical Summary ---
Author Organization [facility] Address [address] [place] [address] Care Team Providers Care Regional Property Manager Name Role Phone Maulik Bowser MD Primary Care Provider [phone] Allergies No known active allergies Medications lisinopril [...] Documents on File Type Date Recorded Patient Watch And Clock Repairer Expl anation Legal Documents 02/14/2020 12:50 PM RECVD & CMPLTD ON 12/21/19 ATTY REQ. FOR HB BILLS FOR SONIDO FOR XEBEE RECORDS Care Teams Regional Property Manager Relationship Specialty Start Date End Date Maulik Bowser MD [address] [place] [place] [phone] PCP - General INTERNAL MEDICINE 09/23/18
--- NOTE | 2024-05-10 01:35 | ED.GENADULT ---
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 Symptoms been ongoing for several months. She has seen multiple specialists and monitor. She does not have any other signs of allergies such as globus sensation, wheezing nausea vomiting diarrhea lightheadedness. Patient is asking for symptomatic treatment. Related Data Home Medications ?Medication ?Instructions ?Recorded ?Confirmed ?Last Taken ?Type acyclovir 400 mg tablet 400 mg PO BID 04/20/22 10/16/23 Unknown History famotidine 20 mg tablet 20 mg PO DAILY 04/20/22 10/16/23 Unknown History Thyroid Support With Iodine 2 cap PO DAILY 06/13/22 10/16/23 Unknown History lisinopril 10 1 tablet PO DAILY 06/13/22 10/16/23 Unknown History mg-hydrochlorothiazide 12.5 mg tablet Allergies Allergy/AdvReac Type Severity Reaction Status Date / Time No Known Allergies Allergy Verified 05/09/24 21:35 [facility] Past Medical History Medical History Tears of meniscus and ACL of left knee (2019) non operative Colon cancer screening Bloating Abdominal pain Hemorrhoids Hypertension Surgical History Surgical History H/O hemorrhoidectomy EUA; external hemorrhoidectomy involving left lateral & right anterior positions 04/21/22 No pertinent past surgical history Family History Family History Father Parkinson disease Hypertension Mother Hypertension Arthritis Sibling Scoliosis Social History Social History Smoking status: Never smoker Second hand tobacco smoke exposure: Yes Alcohol intake: current Substance use: never Substance use type: does not use Do You Feel Safe in your Home?: Yes Lack of Transportation: No Lack of Food: Never True Current Housing: I Have Housing Concerned About Future Housing: No Difficulty Paying Gas/Electric Bills: No Difficulty Paying for Meds: No Currently Unemployed: No Education: High School Diploma/GED Difficulty w/ Childcare or Family Care: No Living arrangements: with family Occupation/Education: unemployed Gender identity (if verbalized by the patient): Female Spiritual care concerns: No Exam Narrative: APPEARANCE: No apparent distress. Head: a no lip or throat swelling EYES: EOMI, NOSE: Atraumatic NECK: Trachea midline RESPIRATORY: No increased rate of breathing clear to auscultation CARDIOVASCULAR: RRR, ABDOMINAL: Non-distended MUSCULOSKELETAl: No obvious deformities NEURO: Alert. Moving 4/4 extremities SKIN:: Hives over the chest and abdomen PSYCHIATRIC: Normal affect Course Vital Signs Vital signs: Vital Signs Temperature 97.6 F 05/09/24 21:31 Pulse Rate 65 05/09/24 21:31 Respiratory Rate 20 05/09/24 21:31 Blood Pressure 139/92 H 05/09/24 21:31 Pulse Oximetry 100 05/09/24 21:31 Oxygen Delivery Room Air 05/09/24 21:31 Temperature 97.6 F 05/09/24 21:31 Pulse Rate 61 05/09/24 23:32 Respiratory Rate 18 05/09/24 23:32 Blood Pressure 127/85 05/09/24 23:32 Pulse Oximetry 98 05/09/24 23:32 Oxygen Delivery Room Air 05/09/24 21:31 Medical Decision Making MDM Narrative Medical decision making narrative: -Course: 53-year-old female presenting with a path cardiac area. Given symptomatic treatment. Patient discharged. Vital Signs Vital Signs: Vital Signs Temperature 97.6 F 05/09/24 21:31 Pulse Rate 65 05/09/24 21:31 Respiratory Rate 20 05/09/24 21:31 Blood Pressure 139/92 H 05/09/24 21:31 Pulse Oximetry 100 05/09/24 21:31 Oxygen Delivery Room Air 05/09/24 21:31 Temperature 97.6 F 05/09/24 21:31 Pulse Rate 61 05/09/24 23:32 Respiratory Rate 18 05/09/24 23:32 Blood Pressure 127/85 05/09/24 23:32 Pulse Oximetry 98 05/09/24 23:32 Oxygen Delivery Room Air 05/09/24 21:31 Discharge Plan Discharge Clinical Impression: Urticaria Patient Disposition: Home, Self-Care Condition: Stable Instructions: Antibiotic Form, Urticaria (ED) Additional Instructions: Please take Benadryl for itching. Please follow-up with your primary care physician or refrigeration tech for further management. Return to ED if develops any new or worsening symptoms. Patient Language: Paraguayan Prescriptions: No Action prednisone 10 mg tablet 10 mg PO BID Qty: 20 0RF cephalexin 500 mg capsule 500 mg PO Q6H 7 Days Qty: 28 0RF triamcinolone acetonide 0.5 % cream 1 applic topical BID Qty: 15 0RF acyclovir 400 mg tablet 400 mg PO BID famotidine 20 mg tablet 20 mg PO DAILY lisinopril-hydrochlorothiazide 10-12.5 mg tablet 1 tablet PO DAILY Thyroid Support With Iodine 2 cap PO DAILY ibuprofen 600 mg tablet 600 mg PO TID PRN (Reason: pain) Qty: 20 0RF acetaminophen 500 mg capsule 1,000 mg PO Q6H PRN (Reason: pain) Qty: 30 0RF prednisone 10 mg tablet 10 mg PO DAILY Qty: 45 0RF Rx Instructions: 5 tabs daily for 3 days, 4 tabs daily for 3 days, 3 tabs daily for 3 days, 2 tabs daily for 3 days, 1 tab daily for 3 days Follow-up/Referrals: Nima,ROMARIO Miles [Primary Care Provider] -
[2024-05-10] MEDS: diphenhydrAMINE HCl INJ 50 MG/ML VIAL IV PUSH (02:05)
[2024-05-10] MEDS: dexAMETHasone SOD PHOS INJ 10 MG/ML 1 ML VIAL IV PUSH (02:05)
[2024-05-10] MEDS: FAMOTIDINE 20 MG/2 ML VIAL 40 MG IV PUSH (02:05)
[2024-05-10 02:17] VITALS: BP 132/90; RESP 18; O2SAT 98
[2024-05-10 03:06] VITALS: BP 128/86; PULSE 57; RESP 14; O2SAT 98
== END 2024-05-10 03:13 | disposition home or self-care (01) ==
PROVIDERS: Emergency Provider Emergency Medicine; PCP Physician Assistant Medical
DX: L50.1 Idiopathic urticaria (principal); I10 Essential (primary) hypertension
CPT/HCPCS: 96374; 96375; 99284; J1100; J1200